=== PATIENT | female | born 1935 | race African-American/Black ===

== ENCOUNTER → 2016-07-03 | Outpatient (CLI) | payer MEDICARE, MEDICAID, OTHER ==
[~2016-07-03] MED LIST: ALBU6.7H INH; ASPI-110 PO; ATOR40TA16 PO; BACT800T5 PO; BLOOD GLUCOSE T1 TES; CALCTAB54 PO; CEPH-460 PO; CLOP75 PO; FURO1TAB62 PO; GABA300C5 PO; HUMA100I3 SQ; HYDR-3516 PO; HYDRGEL4 TOPICAL; INSULIN NEEDLES; LACT10SO PO; LANTINJ SQ; LANTUS; LISI2.5T3 PO; MAGNSOL2 PO; METO25TA3 PO; MIRA33504 PO; NAPR500 PO; POTA-163 PO; SPIRCAP INH; TRIA40P I-ARTICULR; TRIA40P IA; VITA400T2 PO; WHEEMIS3; ZOCO80TA PO; [UNRECOGNIZED DRUG - CODE] INJ; lancets; needles
[2016-07-03 08:38] LABS: ANION GAP 6 MEQ/L (5-15); BICARBONATE 25.9 MEQ/L (21.0-32.0); BLOOD UREA NITROGEN 27 MG/DL (7-18); CHLORIDE 113 MEQ/L (98-107); GLOMERULAR FILTRATION RATE 49 ML/MIN (>89); GLUCOSE,FASTING 123 MG/DL (74-99); POTASSIUM 4.6 MEQ/L (3.5-5.1); SODIUM (NA) 145 MEQ/L (136-145)
[2016-07-03 11:06] LABS: MICRO ALBUMIN RANDOM URINE RAW 8.6 MG/L (0.0-30.0)
[2016-07-03 11:51] LABS: HEMOGLOBIN A1a 0.9 %; HEMOGLOBIN LA1C 2.3 %; HEMOGLOBIN P3 4.5 %
== END ==
LOC: CLAB 07:38
PROVIDERS: ATTEND Family Medicine
DX: E11.9 Type 2 diabetes mellitus without complications (principal)
CPT/HCPCS: 36415; 80048; 82043; 83036

== ENCOUNTER 2016-07-16 08:26 | Emergency (ER) | payer MEDICARE, MEDICAID ==
[~2016-07-16] VITALS: Ht 160 cm; Wt 93.0 kg
[~2016-07-16 08:26] MED LIST changes: -BACT800T5 PO; -BLOOD GLUCOSE T1 TES; -CEPH-460 PO; -HYDRGEL4 TOPICAL; -TRIA40P I-ARTICULR; -WHEEMIS3; -[UNRECOGNIZED DRUG - CODE] INJ; -lancets; -needles
[2016-07-16 08:29] VITALS: BP 150/80; PULSE 86; RESP 20; TEMP 98.1; O2SAT 97
[2016-07-16 08:42] VITALS: BP 172/82; PULSE 72; RESP 17; TEMP 98; O2SAT 98
[2016-07-16] MEDS ORDERED: BACT800T5 PO (09:10)
[2016-07-16] MEDS ORDERED: CEPH-460 PO (09:10)
--- NOTE | 2016-07-16 09:10 | PD ---
HPI Chief Complaint: Burn Time Seen by Provider: 08:47 Travel History International Travel<30 days: No Contact w/Intl Traveler<30days: No Traveled to known affect area: No History of Present Illness HPI Send 80 year-old woman who presents to the emergency department complaining of pain from a burn under her right foot that happened 5 days ago. Patient is a history of poorly controlled diabetes. She has a small burn to the top of her foot that she sustained after dropping hot grease on it. The wound wasn't really improving and she had worsening pain, some swelling and redness in her foot. She sees a formulation scientist. She is otherwise been feeling well. Skin she may have had some chills at home but no definite fevers. No other complaints. History Past Medical History Narrative Medical Diabetes CAD, hypertension COPD Arthritis Anxiety Heart of hearing Tetanus Vaccination: < 5 Years Influenza Vaccination: Yes PNEUMOCCOCAL Vaccine (Year): 1 Menopausal: Yes : 11 Para: 8 Social History Alcohol Use: No Tobacco Use: No Allergies-Medications (Allergen,Severity, Reaction): Coded Allergies: Cola Drinks (Verified Allergy, Intermediate, FACIAL SWELLING, 07/16/16) Tomato (Verified Allergy, Intermediate, FACIAL SWELLING, 07/16/16) Morphine (Verified Allergy, Mild, Itching, 07/16/16) Reported Meds & Prescriptions Reported Meds & Active Scripts Active Metoprolol Tartrate 25 Mg Tab 25 Mg PO BID Potassium Chloride ER (Potassium Chloride) 20 Meq Tab 20 Meq PO DAILY Naprosyn (Naproxen) 500 Mg Tab 500 Mg PO BID Spiriva Handihaler (Tiotropium Inh) 18 Mcg Cap 18 Mcg INH DAILY 1 capsule = 18 mcg Lisinopril 2.5 Mg Tab 2.5 Mg PO DAILY Humalog Kwikpen Pen Inj (Insulin Lispro (Human) Inj) 300 Unit/3 Ml Pen 15 Units SQ BID Hydrocodone-Acetaminophen 5-325 mg Tab 1 Tab PO Q6H PRN Magnesium Citrate Liq (Magnesium Citrate) 300 Ml Liq 300 Ml PO DIRECTED Miralax Powder (Polyethylene Glycol 3350 Powder) 17 Gm Powd 17 Gm PO DAILY Mix and dissolve one measuring cap-ful (17 grams) in water or juice. Lactulose Liq (Lactulose) 10 Gm/15 Ml Soln 30 Ml PO Q8HR PRN 5 Days Lantus Solostar Pen Inj (Insulin Glargine) 300 Unit/3 Ml Pen 40 Units SQ HS Calcium 500 (Kvarqje-Uaqdplzeg-Hntszxx D) 500-250-200 Mg-Mg-Unit Tab 1 Tab PO DAILY Atorvastatin (Atorvastatin Calcium) 40 Mg Tab 40 Mg PO HS Aspirin 81 (Aspirin) 81 Mg Tabdr 81 Mg PO DAILY Proventil Hfa 6.7 GM Inh (Albuterol Sulfate) 90 Mcg/Act Aer 2 Puff INH Q4-6H PRN Vitamin D (Cholecalciferol) 400 Unit Tab 1 Tab PO DAILY Gabapentin 300 Mg Cap 300 Mg PO BID Lasix (Furosemide) 20 Mg Tab 20 Mg PO DAILY Review of Systems Except as stated in HPI: all other systems reviewed are Neg Physical Exam Narrative GENERAL: Well-appearing 80 year-old woman, no acute distress. SKIN: Warm and dry. CARDIOVASCULAR: Warm and well perfused. RESPIRATORY: Normal rate and effort. MUSCULOSKELETAL: Focused assessment of the right foot reveals a little bit of edema compared to the left. The foot is generally well tended to. There is approximately 1-1/2 cm area burn on the top of the foot. Patient appears to have sensation in the area of burn. There is a small surrounding rim of darker erythema, approximately 5-10 mm or so. Entire foot is a little bit tender. Good perfusion. NEUROLOGICAL: Awake and alert. No gross deficits. Data Data Last Documented VS Vital Signs Date Time Temp Pulse Resp B/P Pulse Ox O2 Delivery O2 Flow Rate FiO2 07/16/16 08:52 17 98 Room Air 07/16/16 08:42 98.0 72 172/82 MDM Medical Decision Making Medical Screen Exam Complete: Yes Emergency Medical Condition: Yes Differential Diagnosis Burn, cellulitis, infection, other Narrative Course Medical decision making Is an 80 year-old woman, history diabetes, high risk for infection, with a burn to the top of her foot. She has sensation to the area of burn, likely partial thickness. It is small. She looks otherwise well. No evidence of systemic infection here. Area of surrounding cellulitis is small. Recommend oral antibiotics, elevation of the foot, and close follow-up with her primary and with wound care. I spoke with the family member with her, if she has any spreading of erythema outside the demarcated area, if she has any fevers, or if she is feeling worse, she'll return to the emergency department for IV antibiotics. Diagnosis Primary Impression: Burn of right foot Qualified Code: T25.221A - Burn of right foot, second degree, initial encounter Additional Impression: Cellulitis Qualified Code: L03.115 - Cellulitis of right lower extremity Patient Instructions: General Instructions Additional Instructions: Take antibiotics as prescribed. Keep your leg elevated above your heart to reduce swelling. Follow-up with the wound care center at the first available appointment in the next 2-3 days. Follow-up with her primary physician in the next 2-3 days. Return to the emergency department if you have any spreading of the redness outside the demarcated area, any fevers or chills, or any other new or worsening symptoms. Med/Other Pt SpecificInfo: Prescription(s) given Scripts Cephalexin (Keflex)500 Mg [id number] Mg PO Q8H #30 CAP Ref 0 Prov:Lobito Wong MD 07/16/16 Sulfamethoxazole-Trimethoprim (Bactrim DS)800-160 Mg Tab1 Tab PO BID #20 TAB Ref 0 Prov:Lobito Wong MD 07/16/16 Disposition: 01 DISCHARGE HOME Condition: Stable Lobito Wong MD Jul 16, 2016 09:10
[2016-07-16] MEDS ORDERED: SULFAMETHOXAZOLE-TRIMETHOPRIM DS 800-160 MG TAB PO ONE (09:15)
[2016-07-16] MEDS ORDERED: CEPHALEXIN MONOHYDRATE 500 MG CAP PO ONE (09:15)
[2016-07-16 09:26] VITALS: BP 170/82; TEMP 98.1
[2016-07-22] MEDS ORDERED: HYDRGEL4 TOPICAL (10:54)
[2016-07-29] MEDS ORDERED: POTA-163 PO (10:08)
[2016-07-29] MEDS ORDERED: FURO1TAB62 PO (10:08)
[2016-07-29] MEDS ORDERED: ASPI-110 PO (10:08)
[2016-07-29] MEDS ORDERED: LISI2.5T3 PO (10:08)
[2016-07-29] MEDS ORDERED: NAPR500 PO (10:08)
[2016-07-29] MEDS ORDERED: LANTINJ SQ (10:08)
[2016-07-29] MEDS ORDERED: CALCTAB54 PO (10:08)
[2016-07-29] MEDS ORDERED: ATOR40TA16 PO (10:08)
[2016-07-29] MEDS ORDERED: GABA300C5 PO (10:08)
[2016-07-29] MEDS ORDERED: VITA400T2 PO (10:08)
[2016-07-29] MEDS ORDERED: SPIRCAP INH (10:08)
[2016-07-29] MEDS ORDERED: ALBU6.7H INH (10:08)
[2016-07-29] MEDS ORDERED: HUMA100I3 SQ (10:08)
[2016-07-31] MEDS ORDERED: [UNRECOGNIZED DRUG - CODE] INJ (12:11)
[2016-08-08] MEDS ORDERED: HYDR-3516 PO (12:52)
[2016-08-14] MEDS ORDERED: [UNRECOGNIZED DRUG - CODE] INJ (12:11)
[2016-10-13] MEDS ORDERED: needles ×2 (10:55)
[2016-10-13] MEDS ORDERED: LANTINJ SQ (10:55)
[2016-10-13] MEDS ORDERED: HUMA100I3 SQ (10:55)
[2016-10-13] MEDS ORDERED: lancets (10:56)
[2016-10-13] MEDS ORDERED: BLOOD GLUCOSE T1 TES (10:56)
[2016-10-13] MEDS ORDERED: TRIA40P I-ARTICULR (10:58)
[2016-10-13] MEDS ORDERED: HYDR-3516 PO ×2 (10:59→11:00)
[2016-10-17] MEDS ORDERED: WHEEMIS3 (10:19)
== END 2016-07-16 09:26 | disposition home or self-care (01) ==
LOC: NEPC 08:26
DX: T25.221A Burn of second degree of right foot, initial encounter (principal); X19.XXXA Contact with other heat and hot substances, initial encounter
CPT/HCPCS: 99283

== ENCOUNTER → 2016-08-29 | Outpatient (CLI) | payer MEDICARE, OTHER ==
[~2016-08-29] MED LIST changes: +BLOOD GLUCOSE T1 TES; +HYDRGEL4 TOPICAL; -INSULIN NEEDLES; -LANTUS; +TRIA40P I-ARTICULR; +WHEEMIS3; +lancets; +needles
--- NOTE | 2016-09-01 19:11 | RADRPT ---
EXAM DATE/TIME: 08/29/2016 00:00 [facility] COMPARISON: No previous studies available for comparison. INDICATIONS : Right lung mass. FINDINGS: There is a PET scan from 04/16/16 that shows a slow-growing nodule in the right lower l obe measuring 1.7 cm that is not PET avid. The slow growth is concerning. This nodule would be very difficult to biopsy percutaneously, hidden behind scapula and rib and small in size; 1.7 cm size. This nodule may be amenable to bronchoscopic image-guided biopsy. A third option would be to perform a follow-up CT scan in August which would give us a five month foll ow-up. If this continues to enlarge an aggressive approach would be of benefit. If this remains sta ble one could also entertain close observation. The PET positive adrenal nodule would be amenable to percutaneous biopsy if this is of significant cl inical concern. Thank you for this consultation. Dany Fairbanks MD FACR on September 01, 2016 at 18:56 Board Certified Radiologist. This report was verified electronically.
== END ==
LOC: HRAD 17:27
PROVIDERS: ATTEND Family Medicine
DX: R23.4 Changes in skin texture (principal); R91.8 Other nonspecific abnormal finding of lung field

== ENCOUNTER → 2016-12-16 | Outpatient (CLI) | payer MEDICARE, OTHER ==
[~2016-12-16] MED LIST changes: -TRIA40P I-ARTICULR
[2016-12-16 08:52] LABS: ANION GAP 8 MEQ/L (5-15); BICARBONATE 22.9 MEQ/L (21.0-32.0); BLOOD UREA NITROGEN 38 MG/DL (7-18); CHLORIDE 108 MEQ/L (98-107); GLOMERULAR FILTRATION RATE 46 ML/MIN (>89); GLUCOSE,FASTING 180 MG/DL (74-99); POTASSIUM 4.4 MEQ/L (3.5-5.1); SODIUM (NA) 139 MEQ/L (136-145)
[2016-12-16 16:36] LABS: HEMOGLOBIN A1a 1.1 %; HEMOGLOBIN A1b 2.2 %; HEMOGLOBIN Ao 81.1 %; HEMOGLOBIN LA1C 2.6 %; HEMOGLOBIN P3 4.6 %
== END ==
LOC: CLAB 07:49
PROVIDERS: ATTEND Family Medicine
DX: E11.9 Type 2 diabetes mellitus without complications (principal)
CPT/HCPCS: 36415; 80048; 83036

== ENCOUNTER → 2017-03-13 | Outpatient (CLI) | payer MEDICARE, OTHER ==
[~2017-03-13] MED LIST changes: +CHOL100025 CHEW; +CLOP75TA PO; +METF1000 PO; -NAPR500 PO; -VITA400T2 PO
[2017-03-13 08:22] LABS: HEMATOCRIT 33.8 % (35.0-46.0); MEAN CELL VOLUME 89.6 FL (80.0-100.0); MEAN CORPUSCULAR HEMOGLOBIN 29.8 PG (27.0-34.0); MEAN CORPUSCULAR HGB CONC 33.2 % (32.0-36.0); PLATELET COUNT 253 TH/MM3 (150-450); RED BLOOD COUNT 3.77 MIL/MM3 (4.00-5.30); RED CELL DISTRIBUTION WIDTH 13.9 % (11.6-17.2); REVIEW FLAG FINAL; WHITE BLOOD COUNT 6.7 TH/MM3 (4.0-11.0)
[2017-03-13 08:38] LABS: ANION GAP 7 MEQ/L (5-15); BICARBONATE 27.3 MEQ/L (21.0-32.0); BLOOD UREA NITROGEN 21 MG/DL (7-18); CHLORIDE 109 MEQ/L (98-107); GLOMERULAR FILTRATION RATE 53 ML/MIN (>89); GLUCOSE,FASTING 83 MG/DL (74-99); POTASSIUM 4.4 MEQ/L (3.5-5.1); SODIUM (NA) 143 MEQ/L (136-145)
[2017-03-13 15:01] LABS: HEMOGLOBIN A1a 1.1 %; HEMOGLOBIN A1b 2.1 %; HEMOGLOBIN Ao 83.7 %; HEMOGLOBIN LA1C 1.8 %; HEMOGLOBIN P3 3.9 %
== END ==
LOC: CLAB 07:17
PROVIDERS: ATTEND Family Medicine
DX: R94.4 Abnormal results of kidney function studies (principal); I10 Essential (primary) hypertension; E78.5 Hyperlipidemia, unspecified; E11.9 Type 2 diabetes mellitus without complications; I25.10 Atherosclerotic heart disease of native coronary artery without angina pectoris; E04.1 Nontoxic single thyroid nodule; M81.0 Age-related osteoporosis without current pathological fracture; Z68.38 Body mass index [BMI] 38.0-38.9, adult
CPT/HCPCS: 36415; 80048; 82306; 83036; 84443; 85027

== ENCOUNTER 2017-04-26 16:15 | Emergency (ER) | payer MEDICARE, OTHER ==
[~2017-04-26] VITALS: Ht 167.6 cm; Wt 76.0 kg
[~2017-04-26 16:15] MED LIST changes: -ASPI-110 PO; +ASPI1TAB57 PO
[2017-04-26 16:17] VITALS: BP 200/84; PULSE 91; RESP 18; TEMP 99.1; O2SAT 98
--- NOTE | 2017-04-26 17:05 | RADRPT ---
EXAM DATE/TIME: 04/26/2017 16:50 [facility] COMPARISON: CHEST SINGLE AP, October 07, 2015, 1:13. INDICATIONS : Congestion. Cough. Fever. MEDICAL HISTORY : None. SURGICAL HISTORY : None. ENCOUNTER: Initial ACUITY: 3 days PAIN SCORE: 6/10 LOCATION: Bilateral chest FINDINGS: Mild bibasilar consolidation noted. No pleural effusion. No pneumothorax. Heart size stable, within normal limits. CONCLUSION: Mild bibasilar airspace opacities. Robby Holguin MD on April 26, 2017 at 17:02 Board Certified Radiologist. This report was verified electronically.
[2017-04-26 17:19] VITALS: BP 156/80; PULSE 84; RESP 18; O2SAT 96
[2017-04-26 17:30] LABS: AUTOMATED NEUTROPHIL # 7.2 TH/MM3 (1.8-7.7); BASOPHIL % 0.3 % (0.0-2.0); EOSINOPHIL # 0.1 TH/MM3 (0-0.4); EOSINOPHIL % 0.8 % (0.0-4.0); HEMATOCRIT 33.3 % (35.0-46.0); HEMO FLAGS DIFF FINAL; LYMPH % 19.7 % (9.0-44.0); MEAN CELL VOLUME 88.9 FL (80.0-100.0); MEAN CORPUSCULAR HEMOGLOBIN 29.7 PG (27.0-34.0); MEAN CORPUSCULAR HGB CONC 33.4 % (32.0-36.0); MONO % 7.8 % (0.0-8.0); NEUT % 71.4 % (16.0-70.0); PLATELET COUNT 245 TH/MM3 (150-450); RED BLOOD COUNT 3.75 MIL/MM3 (4.00-5.30); RED CELL DISTRIBUTION WIDTH 14.2 % (11.6-17.2); WHITE BLOOD COUNT 10.1 TH/MM3 (4.0-11.0)
[2017-04-26] MEDS ORDERED: ACETAMINOPHEN 500 MG CPLT PO ONE (17:30)
[2017-04-26 17:48] LABS: ANION GAP 8 MEQ/L (5-15); BICARBONATE 26.4 MEQ/L (21.0-32.0); BLOOD UREA NITROGEN 16 MG/DL (7-18); CHLORIDE 103 MEQ/L (98-107); GLOMERULAR FILTRATION RATE 50 ML/MIN (>89); POTASSIUM 4.3 MEQ/L (3.5-5.1); SODIUM (NA) 137 MEQ/L (136-145)
[2017-04-26 17:52] LABS: CREATINE KINASE 152 U/L (26-192)
[2017-04-26 18:05] LABS: CKMB 2.5 NG/ML (0.5-3.6)
--- NOTE | 2017-04-26 18:22 | PD ---
HPI Chief Complaint: Headache Time Seen by Provider: 17:17 Travel History International Travel<30 days: No Contact w/Intl Traveler<30days: No Traveled to known affect area: No History of Present Illness HPI This is an 81-year-old female who presents to the emergency department with headache that's been going on since yesterday evening, constant, moderate severity, described as pain all over the front of her forehead extending down into her neck and her throat. She also says she has nasal congestion, has yellow stuff coming from her nose and has a sore throat. She's had headaches in the past. She says the headache started last evening but was worse this morning. She denies any fevers or chills. PFSH Past Medical History Hx Anticoagulant Therapy: Yes Arthritis: Yes (KNEE, BACK) Asthma: Yes Autoimmune Disease: No Blood Disorders: No Anxiety: Yes Depression: No Heart Rhythm Problems: No Cancer: No Cardiac Catheterization: Yes Cardiovascular Problems: Yes (stents x2) High Cholesterol: No Chemotherapy: No Chest Pain: Yes Congestive Heart Failure: No COPD: Yes Cerebrovascular Accident: No Coronary Artery Disease: Yes Diabetes: Yes Patient Takes Glucophage: Yes Diminished Hearing: Yes ([place]) Endocrine: Yes Gastrointestinal Disorders: Yes (APPENDECTOMY) GERD: No Glaucoma: No Genitourinary: No Headaches: No Hepatitis: No Hiatal Hernia: No Heparin Induced Thrombocytopen: No Hypertension: Yes Immune Disorder: No Implanted Vascular Access Dvce: No Kidney Stones: No Musculoskeletal: No Neurologic: No Psychiatric: No Reproductive: No Respiratory: Yes (asthma) Immunizations Current: Yes Migraines: Yes Myocardial Infarction: Yes Radiation Therapy: No Renal Failure: No Seizures: No Sickle Cell Disease: No Sleep Apnea: No Thyroid Disease: No Ulcer: No Tetanus Vaccination: < 5 Years Influenza Vaccination: Yes PNEUMOCCOCAL Vaccine (Year): 1 Menopausal: Yes : 11 Para: 8 Tubal Ligation: Yes Past Surgical History Abdominal Surgery: Yes AICD: No Appendectomy: Yes Body Medical Devices: CARDIAC STENT Cardiac Surgery: Yes Cholecystectomy: Yes Coronary Artery Bypass Graft: Yes Coronary Stent: Yes Ear Surgery: No Endocrine Surgery: No Eye Surgery: No Genitourinary Surgery: No Gynecologic Surgery: Yes Hysterectomy: Yes Neurologic Surgery: No Oral Surgery: No Pacemaker: No Thoracic Surgery: No Other Surgery: Yes (CYST OFF LEFT ARM ) Social History Alcohol Use: No Tobacco Use: No Substance Use: No Allergies-Medications (Allergen,Severity, Reaction): Coded Allergies: tomato (Unverified Allergy, Intermediate, FACIAL SWELLING, 04/26/17) morphine (Unverified Allergy, Mild, Itching, 04/26/17) Reported Meds & Prescriptions Reported Meds & Active Scripts Active Spiriva Handihaler (Tiotropium Inh) 18 Mcg Cap 18 Mcg INH DAILY 1 capsule = 18 mcg Metformin (Metformin HCl) 1,000 Mg Tab 1,000 Mg PO BIDPC With meals Atorvastatin (Atorvastatin Calcium) 40 Mg Tab 40 Mg PO HS Vitamin D3 (Cholecalciferol) 1,000 Unit Chew 1,000 Units CHEW DAILY Clopidogrel (Clopidogrel Bisulfate) 75 Mg Tab 75 Mg PO DAILY Lantus Solostar Pen Inj (Insulin Glargine) 300 Unit/3 Ml Pen 40 Units SQ HS Wheelchair (Device) 1 Mis Mis 1 Ea .ROUTE DIRECTED [lancets] Unit BID Blood Glucose Test Strips 1 Amanda Amanda 1 Ea .ROUTE BID [needles] Unit BID Humalog Kwikpen Pen Inj (Insulin Lispro (Human) Inj) 300 Unit/3 Ml Pen 15 Units SQ BID Potassium Chloride ER (Potassium Chloride) 20 Meq Tab 20 Meq PO DAILY Lisinopril 2.5 Mg Tab 2.5 Mg PO DAILY Aspirin 81 (Aspirin) 81 Mg Tabdr 81 Mg PO DAILY Proventil Hfa 6.7 GM Inh (Albuterol Sulfate) 90 Mcg/Act Aer 2 Puff INH Q4-6H PRN Gabapentin 300 Mg Cap 300 Mg PO BID Lasix (Furosemide) 20 Mg Tab 20 Mg PO DAILY Metoprolol Tartrate 25 Mg Tab 25 Mg PO BID Magnesium Citrate Liq (Magnesium Citrate) 300 Ml Liq 300 Ml PO DIRECTED Review of Systems Except as stated in HPI: all other systems reviewed are Neg Physical Exam Narrative GENERAL:Well appearing, no acute distress SKIN: Focused skin assessment warm and dry. HEAD: Atraumatic. Normocephalic. EYES: Pupils equal and round. No injection or drainage. ENT: Moist mucous membranes NECK: Trachea midline. CARDIOVASCULAR: Regular rate and rhythm. No murmur appreciated. RESPIRATORY: Clear to auscultation. Breath sounds equal bilaterally. GASTROINTESTINAL: Abdomen soft, non-tender, nondistended. MUSCULOSKELETAL: No obvious deformities. NEUROLOGICAL: Awake and alert. No obvious cranial nerve deficits. No dysarthria or aphasia. No upper or lower extremity drift. No upper extremity ataxia. Intention tremor. PSYCHIATRIC: Appropriate mood and affect; insight and judgment normal. Data Data Last Documented VS Vital Signs Date Time Temp Pulse Resp B/P (MAP) Pulse Ox O2 Delivery O2 Flow Rate FiO2 04/26/17 17:19 86 20 96 Room Air 04/26/17 17:19 156/80 (105) 04/26/17 16:17 99.1 Orders Orders Electrocardiogram (04/26/17 16:28) Complete Blood Count With Diff (04/26/17 16:28) Basic Metabolic Panel (Bmp) (04/26/17 16:28) Ckmb (Isoenzyme) Profile (04/26/17 16:28) Troponin I (04/26/17 16:28) Chest, Single Ap (04/26/17 16:28) Ct Brain W/O Iv Contrast(Rout) (04/26/17 ) Acetaminophen (Tylenol) (04/26/17 17:30) CKMB (04/26/17 16:37) CKMB% (04/26/17 16:37) Labs Laboratory Tests Test 04/26/17 16:37 White Blood Count 10.1 TH/MM3 Red Blood Count 3.75 MIL/MM3 Hemoglobin 11.1 GM/DL Hematocrit 33.3 % Mean Corpuscular Volume 88.9 FL Mean Corpuscular Hemoglobin 29.7 PG Mean Corpuscular Hemoglobin Concent 33.4 % Red Cell Distribution Width 14.2 % Platelet Count 245 TH/MM3 Mean Platelet Volume 8.9 FL Neutrophils (%) (Auto) 71.4 % Lymphocytes (%) (Auto) 19.7 % Monocytes (%) (Auto) 7.8 % Eosinophils (%) (Auto) 0.8 % Basophils (%) (Auto) 0.3 % Neutrophils # (Auto) 7.2 TH/MM3 Lymphocytes # (Auto) 2.0 TH/MM3 Monocytes # (Auto) 0.8 TH/MM3 Eosinophils # (Auto) 0.1 TH/MM3 Basophils # (Auto) 0.0 TH/MM3 CBC Comment DIFF FINAL Differential Comment Blood Urea Nitrogen 16 MG/DL Creatinine 1.24 MG/DL Random Glucose 170 MG/DL Calcium Level 8.8 MG/DL Sodium Level 137 MEQ/L Potassium Level 4.3 MEQ/L Chloride Level 103 MEQ/L Carbon Dioxide Level 26.4 MEQ/L Anion Gap 8 MEQ/L Estimat Glomerular Filtration Rate 50 ML/MIN Total Creatine Kinase 152 U/L Creatine Kinase MB 2.5 NG/ML Troponin I LESS THAN 0.02 NG/ML MDM Medical Decision Making Medical Screen Exam Complete: Yes Emergency Medical Condition: Yes Interpretation(s) Afebrile, mild tachycardia, hypertension improved in the ER No leukocytosis Mild anemia Mild renal insufficiency Troponin is normal Chest x-ray: Mild bibasilar airspace opacities, patient is asymptomatic so I doubt this reflects pneumonia Last 24 hours Impressions Chest X-Ray 04/26/17 1628 Signed Impressions: Service Date/Time: Thursday, April 26, 2017 16:50 - CONCLUSION: Mild bibasilar airspace opacities. Robby Holguin MD CT head: No intracranial hemorrhage Differential Diagnosis Migraine, tension headache, sinusitis, subarachnoid hemorrhage, viral syndrome, influenza Narrative Course This is an 81-year-old female who presents to the emergency department with headache, nasal congestion and sore throat. Her headache has worsened over 24 hours and was maximal today is post yesterday when it started which makes it less likely to be subarachnoid hemorrhage. She has a baseline neurologic exam. Given the presence of upper respiratory symptoms I suspect this reflects more of a sinusitis. Patient will be initiated on Augmentin. I think she is safe to be discharged. Diagnosis Primary Impression: Sinus headache Patient Instructions: General Instructions Additional Instructions: If you develop severe worsening headache, persistent vomiting, numbness, weakness, difficulty walking or difficulty talking return to the emergency department immediately. Sometimes in the emergency department we did not identify the cause of headaches. If you continued to have headaches it is very important that you followup with your primary care physician as you may need further testing with an MRI. Med/Other Pt SpecificInfo: Prescription(s) given Scripts Amoxicillin-Clavulanate (Augmentin) 875-125 Mg Tab 1 TAB PO BID for Infection for 10 Days, #20 TAB 0 Refills Prov: Sumaya Day MD 04/26/17 Disposition: 01 DISCHARGE HOME Condition: Stable Sumaya Day MD Apr 26, 2017 18:22
--- NOTE | 2017-04-26 18:29 | RADRPT ---
EXAM DATE/TIME: 04/26/2017 18:16 [facility] COMPARISON: CT BRAIN W/O CONTRAST, March 13, 2016, 7:57. INDICATIONS : Headaches. RADIATION DOSE: 51.57 CTDIvol (mGy) MEDICAL HISTORY : Cardiovascular disease. Hypertension. SURGICAL HISTORY : CABG Appendectomy.Hysterectomy.GB ENCOUNTER: Initial ACUITY: 1 day PAIN SCALE: 8/10 LOCATION: Bilateral cranial TECHNIQUE: Multiple contiguous axial images were obtained of the head. Using automated exposure control and adj ustment of the mA and/or kV according to patient size, radiation dose was kept as low as reasonably a chievable to obtain optimal diagnostic quality images. DICOM format image data is available electro nically for review and comparison. FINDINGS: CEREBRUM: Mild cerebral atrophy. The ventricles are normal for degree of atrophy. No evidence of midline shift , mass lesion, hemorrhage or acute infarction. No extra-axial fluid collections are seen. POSTERIOR FOSSA: The cerebellum and brainstem are intact. The 4th ventricle is midline. The cerebellopontine angle i s unremarkable. EXTRACRANIAL: The visualized portion of the orbits is intact. SKULL: The calvaria is intact. No evidence of skull fracture. CONCLUSION: 1. No acute intracranial normality. Martín Mack MD on April 26, 2017 at 18:26 Board Certified Radiologist. This report was verified electronically.
[2017-04-26] MEDS ORDERED: AUGM875T3 PO (18:36)
[2017-04-27] MEDS ORDERED: ROBA500T PO (18:30)
[2017-04-27] MEDS ORDERED: NORC5TAB PO (18:30)
--- NOTE | 2017-04-27 19:31 | EKG ---
Date Performed: 04/26/2017 Time Performed: 16:36:53 PTAGE: 81 years EKG: Sinus rhythm POSSIBLE RIGHT VENTRICULAR CONDUCTION DELAY POSSIBLE LEFT VENTRICULAR HYPERTROPHY POSSIBLE ANTEROSEP RYLAN MYOCARDIAL INFARCTION Since previous tracing, no significant change noted ABNORMAL ECG PREVIOUS TRACING : 10/07/2015 00.37 DOCTOR: Eva Malik Interpretating Date/Time 04/27/2017 19:30:00
== END 2017-04-26 19:30 | disposition home or self-care (01) ==
LOC: NEPC 16:15
DX: R51 Headache (principal); R09.81 Nasal congestion; J02.9 Acute pharyngitis, unspecified; R00.0 Tachycardia, unspecified; D64.9 Anemia, unspecified; N28.9 Disorder of kidney and ureter, unspecified; E11.9 Type 2 diabetes mellitus without complications; I10 Essential (primary) hypertension; R94.31 Abnormal electrocardiogram [ECG] [EKG]
CPT/HCPCS: 70450; 71010; 80048; 82550; 82552; 84484; 85025; 93005

== ENCOUNTER 2017-04-27 15:17 | Emergency (ER) | payer MEDICAID, MEDICARE ==
[~2017-04-27 15:17] MED LIST changes: +AUGM875T3 PO; -CALCTAB54 PO; -HYDR-3516 PO; -HYDRGEL4 TOPICAL; -LACT10SO PO; -MIRA33504 PO
[2017-04-27 15:19] VITALS: BP 172/97; PULSE 89; RESP 18; TEMP 98.6; O2SAT 98
--- NOTE | 2017-04-27 16:02 | RADRPT ---
EXAM DATE/TIME: 04/27/2017 15:44 [facility] COMPARISON: SHOULDER RIGHT COMPLETE (>2VWS), October 07, 2015, 2:00. INDICATIONS : Right shoulder pain after fall. MEDICAL HISTORY : None. SURGICAL HISTORY : None. ENCOUNTER: Initial ACUITY: 2 days PAIN SCORE: 10/10 LOCATION: Right shoulder. FINDINGS: Redemonstration of degenerative changes about the glenohumeral joint and hypertrophic changes of the a.c. joint. Osseous structures appear intact without evidence for acute bony fracture or focal bony d estruction. There is anatomic alignment. Visualized portions of the right lung are clear. CONCLUSION: 1. Stable degenerative changes without acute fracture or dislocation. Martín Mack MD on April 27, 2017 at 15:58 Board Certified Radiologist. This report was verified electronically.
--- NOTE | 2017-04-27 16:04 | PD ---
HPI Chief Complaint: Pain: Acute or Chronic Time Seen by Provider: 15:43 Travel History International Travel<30 days: No Contact w/Intl Traveler<30days: No Traveled to known affect area: No History of Present Illness HPI 81-year-old female presents to the emergency Department with complaint of right lateral neck pain and shoulder pain that started last night. She states she slipped and fell in her bathtub 2 days ago injuring her right shoulder. She denies hitting her head or loss of consciousness. She was seen yesterday here in the emergency department and had a CT of her head, but did not mention that she had fallen, and also she states she did not have right shoulder pain yesterday so didn't mention it. Denies headache, lightheadedness, dizziness. Denies focal deficits or weakness. Denies fever, nausea, vomiting. Reports the pain is shooting from her neck down to her shoulder. She has taken aspirin for symptom management. Rates pain 10/10. Pain is aggravated with movement and palpation. Describes it as a shooting sensation. Has no other medical complaints. No other modifying factors or associated signs and symptoms. PFSH Past Medical History Hx Anticoagulant Therapy: Yes (PLAVIX/ASA) Arthritis: Yes (KNEE, BACK) Asthma: Yes Autoimmune Disease: No Blood Disorders: No Anxiety: Yes Depression: No Heart Rhythm Problems: No Cancer: No Cardiac Catheterization: Yes Cardiovascular Problems: Yes (CAD WITH STENTS X2) High Cholesterol: No Chemotherapy: No Chest Pain: Yes Congestive Heart Failure: No COPD: Yes Cerebrovascular Accident: No Coronary Artery Disease: Yes Diabetes: Yes Diminished Hearing: Yes ([place]) Endocrine: Yes Gastrointestinal Disorders: Yes (APPENDECTOMY) GERD: No Glaucoma: No Genitourinary: No Headaches: No Hepatitis: No Hiatal Hernia: No Heparin Induced Thrombocytopen: No Hypertension: Yes Immune Disorder: No Implanted Vascular Access Dvce: No Kidney Stones: No Musculoskeletal: No Neurologic: No Psychiatric: No Reproductive: No Respiratory: Yes (asthma) Immunizations Current: Yes Migraines: Yes Myocardial Infarction: Yes Radiation Therapy: No Renal Failure: No Seizures: No Sickle Cell Disease: No Sleep Apnea: No Thyroid Disease: No Ulcer: No PNEUMOCCOCAL Vaccine (Year): 1 Menopausal: Yes : 11 Para: 8 Tubal Ligation: Yes Past Surgical History Abdominal Surgery: Yes AICD: No Appendectomy: Yes Body Medical Devices: CARDIAC STENT Cardiac Surgery: Yes Cholecystectomy: Yes Coronary Artery Bypass Graft: Yes Coronary Stent: Yes Ear Surgery: No Endocrine Surgery: No Eye Surgery: No Genitourinary Surgery: No Gynecologic Surgery: Yes Hysterectomy: Yes Neurologic Surgery: No Oral Surgery: No Pacemaker: No Thoracic Surgery: No Other Surgery: Yes (CYST OFF LEFT ARM ) Social History Alcohol Use: No Tobacco Use: No Substance Use: No Allergies-Medications (Allergen,Severity, Reaction): Coded Allergies: tomato (Unverified Allergy, Intermediate, FACIAL SWELLING, 04/26/17) morphine (Unverified Allergy, Mild, Itching, 04/26/17) Reported Meds & Prescriptions Reported Meds & Active Scripts Active [place] (Hydrocodone-Acetaminophen) 5 Mg-325 Mg Tab 1 Tab PO Q6H PRN Robaxin (Methocarbamol) 500 Mg Tab 500 Mg PO QID PRN Augmentin (Amoxicillin-Clavulanate) 875-125 Mg Tab 1 Tab PO BID 10 Days Spiriva Handihaler (Tiotropium Inh) 18 Mcg Cap 18 Mcg INH DAILY 1 capsule = 18 mcg Metformin (Metformin HCl) 1,000 Mg Tab 1,000 Mg PO BIDPC With meals Atorvastatin (Atorvastatin Calcium) 40 Mg Tab 40 Mg PO HS Vitamin D3 (Cholecalciferol) 1,000 Unit Chew 1,000 Units CHEW DAILY Clopidogrel (Clopidogrel Bisulfate) 75 Mg Tab 75 Mg PO DAILY Lantus Solostar Pen Inj (Insulin Glargine) 300 Unit/3 Ml Pen 40 Units SQ HS Wheelchair (Device) 1 Mis Mis 1 Ea .ROUTE DIRECTED [lancets] Unit BID Blood Glucose Test Strips 1 Amanda Amanda 1 Ea .ROUTE BID [needles] Unit BID Humalog Kwikpen Pen Inj (Insulin Lispro (Human) Inj) 300 Unit/3 Ml Pen 15 Units SQ BID Potassium Chloride ER (Potassium Chloride) 20 Meq Tab 20 Meq PO DAILY Lisinopril 2.5 Mg Tab 2.5 Mg PO DAILY Aspirin 81 (Aspirin) 81 Mg Tabdr 81 Mg PO DAILY Proventil Hfa 6.7 GM Inh (Albuterol Sulfate) 90 Mcg/Act Aer 2 Puff INH Q4-6H PRN Gabapentin 300 Mg Cap 300 Mg PO BID Lasix (Furosemide) 20 Mg Tab 20 Mg PO DAILY Metoprolol Tartrate 25 Mg Tab 25 Mg PO BID Magnesium Citrate Liq (Magnesium Citrate) 300 Ml Liq 300 Ml PO DIRECTED Review of Systems Except as stated in HPI: all other systems reviewed are Neg Physical Exam Narrative GENERAL: Well-nourished, well-developed elderly, black female patient, in no acute distress SKIN: Warm and dry. HEAD: Atraumatic. Normocephalic. EYES: Pupils equal and round. No scleral icterus. No injection or drainage. ENT: Mucosa pink and moist. Airway patent. NECK: Supple. Trachea midline. Moving freely. No midline tenderness on palpation of the cervical spine. Active rotation greater than 45 to the left and right. Reproducible tenderness to the right lateral musculature of the neck. CARDIOVASCULAR: Regular rate and rhythm. No murmur appreciated. RESPIRATORY: No accessory muscle use. Clear to auscultation. Breath sounds equal bilaterally. GASTROINTESTINAL: Abdomen soft, non-tender, nondistended. Positive bowel sounds. No hepato-splenomegaly, or palpable masses. No guarding. MUSCULOSKELETAL: Right shoulder without erythema, edema, ecchymosis; with full range of motion and greater than 90 abduction; shoulders equal and joint stable ; tenderness on palpation to the clavicle area and the right lateral neck; no obvious deformities. Right upper extremity supple and non-tense with 2+ radial pulse and sensory intact without erythema or edema. 5/5 shaper hand strength eye laterally. No obvious deformities. No clubbing. No cyanosis. No edema. NEUROLOGICAL: Awake and alert. Oriented 3. No obvious cranial nerve deficits. Motor grossly within normal limits. Normal speech. PSYCHIATRIC: Appropriate mood and affect; insight and judgment normal. Data Data Last Documented VS Vital Signs Date Time Temp Pulse Resp B/P (MAP) Pulse Ox O2 Delivery O2 Flow Rate FiO2 04/27/17 15:19 98.6 89 18 172/97 (122) 98 Room Air Orders Orders Ct Cerv Spine W/O Contrast (04/27/17 ) Shoulder, Complete (>2vws) (04/27/17 ) Acetaminophen (Tylenol) (04/27/17 16:15) Methocarbamol (Robaxin) (04/27/17 16:15) Acetamin-Hydrocod 325-5 Mg ([place] 5-325 (04/27/17 17:15) Ed Discharge Order (04/27/17 18:52) MDM Medical Decision Making Medical Screen Exam Complete: Yes Emergency Medical Condition: Yes Medical Record Reviewed: Yes Differential Diagnosis Cervical strain, trapezius muscle strain of the neck, muscle spasm, shoulder fracture, shoulder sprain Narrative Course 81-year-old female with right shoulder pain and right lateral neck pain. Says it's related to a mechanical slip and fall 2 days ago while in the bathtub, but woke up with the pain last night. 1604: Shoulder x-ray concludes: Stable degenerative changes without acute fracture or dislocation 1710: Dr. Day evaluated the patient and agrees with my plan of care. The patient is still having continued pain at this time Dr. Day recommended [place]. [place] ordered. 1825: Patient is resting comfortably and she says her pain is better. 1851: CT cervical spine concludes: Last 24 hours Impressions Shoulder X-Ray 04/27/17 0000 Signed Impressions: Service Date/Time: Thursday, April 27, 2017 15:44 - CONCLUSION: 1. Stable degenerative changes without acute fracture or dislocation. Martín Mack MD Cervical Spine CT 04/27/17 0000 Signed Impressions: Service Date/Time: Thursday, April 27, 2017 17:58 - CONCLUSION: 1. No acute fracture or prevertebral soft tissue swelling. 2. Stable multilevel spinal stenoses, foraminal narrowing and cervical spondylosis as described above. Thien Martinze MD [place] and Robaxin prescribed for home. Instructed patient to follow up with primary care provider. Patient verbalizes understanding and agreement with treatment plan. Patient is medically cleared and stable for discharge. Discussed reasons to return to the emergency department. Patient agrees with treatment plan. The patients vital signs are stable and the patient is stable for outpatient follow-up and treatment. Patient discharged home, stable and in no acute distress. Diagnosis Primary Impression: Strain of cervical portion of right trapezius muscle Additional Impression: Right shoulder pain Qualified Codes: M25.511 - Pain in right shoulder Referrals: Orthopedist Primary Care Physician Patient Instructions: Cervical Sprain (ED), General Instructions, Muscle Spasm (ED), Shoulder Sprain (ED) Additional Instructions: Tylenol as directed and as needed for pain Robaxin as prescribed and as needed for muscle spasms Heating pad and/or ice to affected area to reduce pain Avoid aggravating activities; increase activity as tolerated Follow-up with primary care provider Return to emergency department immediately with worsening of symptoms Med/Other Pt SpecificInfo: Prescription(s) given Scripts Hydrocodone-Acetaminophen ([place]) 5 Mg-325 Mg Tab 1 TAB PO Q6H Y for PAIN, #8 TAB 0 Refills Prov: Rose Chaparro 04/27/17 Methocarbamol (Robaxin) 500 Mg Tab 500 MG PO QID Y for MUSCLE SPASM, #30 TAB 0 Refills Prov: Rose Chaparro 04/27/17 Disposition: 01 DISCHARGE HOME Condition: Stable Rose Chaparro Apr 27, 2017 16:04
[2017-04-27] MEDS ORDERED: METHOCARBAMOL 500 MG TAB PO ONE (16:15)
[2017-04-27] MEDS ORDERED: ACETAMINOPHEN 325 MG TAB PO ONE (16:15)
[2017-04-27] MEDS ORDERED: ACETAMINOPHEN/HYDROcodone 325 MG/5 MG TAB PO ONE (17:15)
[2017-04-27] MEDS ORDERED: NORC5TAB PO (18:30)
[2017-04-27] MEDS ORDERED: ROBA500T PO (18:30)
--- NOTE | 2017-04-27 18:45 | RADRPT ---
EXAM DATE/TIME: 04/27/2017 17:58 [facility] COMPARISON: CT CERVICAL SPINE W/O CONTRAST, August 06, 2015, 9:35. INDICATIONS : Right sided neck pain today. RADIATION DOSE: 42.78 CTDIvol (mGy) ; Patient body habitus MEDICAL HISTORY : Cardiovascular disease. Hypertension. Chronic obstructive pulmonary disease.diabetes SURGICAL HISTORY : Hysterectomy. ENCOUNTER: Initial ACUITY: 1 day PAIN SCALE: 10/10 LOCATION: Right neck TECHNIQUE: Volumetric scanning of the cervical spine was performed. Multiplanar reconstructions in the sagittal, coronal and oblique axial planes were performed. Using automated exposure control and adjustment o f the mA and/or kV according to patient size, radiation dose was kept as low as reasonably achievable to obtain optimal diagnostic quality images. DICOM format image data is available electronically f or review and comparison. FINDINGS: There is no acute fracture or prevertebral soft tissue swelling. Diffuse cervical spondylosis is note d and is unchanged compared to the previous examination. Multilevel spinal stenoses are also noted at C2-3, C3-4, C4-5, C5-6 and C6-7 and are unchanged compared to the previous examination. Multilevel s ignificant bilateral foraminal narrowing is also noted at C3-4, C4-5, C5-6 and C6-7 and significant l eft neuroforaminal narrowing is again noted at C2-3. Mild scoliosis of the cervical spine is noted. CONCLUSION: 1. No acute fracture or prevertebral soft tissue swelling. 2. Stable multilevel spinal stenoses, foraminal narrowing and cervical spondylosis as described above . Thien Martinez MD on April 27, 2017 at 18:37 Board Certified Radiologist. This report was verified electronically.
== END 2017-04-27 19:20 | disposition home or self-care (01) ==
LOC: NEPD 15:17
DX: S16.1XXA Strain of muscle, fascia and tendon at neck level, initial encounter (principal); M25.511 Pain in right shoulder; M54.2 Cervicalgia; E11.9 Type 2 diabetes mellitus without complications; I10 Essential (primary) hypertension; J44.9 Chronic obstructive pulmonary disease, unspecified; I25.10 Atherosclerotic heart disease of native coronary artery without angina pectoris; M19.90 Unspecified osteoarthritis, unspecified site; W18.2XXA Fall in (into) shower or empty bathtub, initial encounter
CPT/HCPCS: 72125; 73030; 99285

== ENCOUNTER 2017-06-09 09:34 | Emergency (ER) | payer MEDICARE, MEDICAID ==
[~2017-06-09] VITALS: Ht 160 cm; Wt 95.0 kg
[~2017-06-09 09:34] MED LIST changes: -AUGM875T3 PO; -CHOL100025 CHEW; +CHOL1CHW6 CHEW; +HYDR-3516 PO
[2017-06-09 09:35] VITALS: BP 130/72; PULSE 95; RESP 16; TEMP 99.6; O2SAT 99
[2017-06-09] MEDS ORDERED: ACETAMINOPHEN 500 MG CPLT PO ONE (10:15)
--- NOTE | 2017-06-09 11:04 | RADRPT ---
EXAM DATE/TIME: 06/09/2017 10:20 [facility] COMPARISON: CHEST SINGLE AP, April 26, 2017, 16:50. INDICATIONS : Short of breath, chest pain. MEDICAL HISTORY : Cardiovascular disease. Chronic obstructive pulmonary disease. diabetes SURGICAL HISTORY : 2 coronary atery stents ENCOUNTER: Initial ACUITY: 1 day PAIN SCORE: 10/10 LOCATION: Bilateral chest FINDINGS: Portable upright AP view of the chest demonstrates a normal-sized cardiac silhouette with calcificati on of the aorta. There are innumerable densities overlying the mediastinum and left midlung zone that were not present on the study from approximately 5 weeks ago. No pleural effusion or pneumothorax is identified. Lungs are underinflated and there is mild symmetric bibasilar opacity. Bones and soft ti ssues demonstrate no acute finding. There is severe glenohumeral joint osteoarthritis bilaterally. An old healed right distal clavicle fracture is stable. CONCLUSION: 1. Underinflation with mild bibasilar opacities most likely representing atelectasis given the underi nflation. However, I cannot confidently exclude mild airspace consolidation. If it would assist with clinical management, consider good inspiratory formal PA and lateral views of the chest for further e valuation. 2. Innumerable densities overlying the mediastinum and left midlung zone presumably overlie the patie nt and may be associated with the patient's clothes. Robby Carballo MD on June 09, 2017 at 10:53 Board Certified Radiologist. This report was verified electronically.
[2017-06-09] MEDS ORDERED: AZIT250T3 PO (11:12)
--- NOTE | 2017-06-09 11:13 | PD ---
HPI Chief Complaint: Cold / Flu Symptoms Time Seen by Provider: 10:04 Travel History International Travel<30 days: No Contact w/Intl Traveler<30days: No Traveled to known affect area: No History of Present Illness HPI 81-year-old woman presents emergent department complaining of hurting all over, coughing, chest pain, fevers, feeling poorly. She states she has pain in her feet, legs, head, and really pretty much everywhere. Symptoms been worsening over the past couple days. She lives alone. No other complaints. History Past Medical History Narrative Medical CAD, stents Asthma/COPD Diabetes Hypertension PNEUMOCCOCAL Vaccine (Year): 1 Menopausal: Yes : 11 Para: 8 Social History Alcohol Use: No Tobacco Use: No Allergies-Medications (Allergen,Severity, Reaction): Coded Allergies: tomato (Unverified Allergy, Intermediate, FACIAL SWELLING, 06/09/17) morphine (Unverified Allergy, Mild, Itching, 06/09/17) Reported Meds & Prescriptions Reported Meds & Active Scripts Active Hydrocodone-Acetaminophen 5-325 mg Tab 1 Tab PO Q6H PRN Lantus Solostar Pen Inj (Insulin Glargine) 300 Unit/3 Ml Pen 35 Units SQ HS Atorvastatin (Atorvastatin Calcium) 40 Mg Tab 40 Mg PO HS Humalog Kwikpen Pen Inj (Insulin Lispro (Human) Inj) 300 Unit/3 Ml Pen 15 Units SQ BID Gabapentin 300 Mg Cap 300 Mg PO BID Vitamin D3 Adult Gummies (Cholecalciferol) 1,000 Unit Chew 2,000 Units CHEW DAILY [needles] Unit BID [lancets] Unit BID Spiriva Handihaler (Tiotropium Inh) 18 Mcg Cap 18 Mcg INH DAILY 1 capsule = 18 mcg Metformin (Metformin HCl) 1,000 Mg Tab 1,000 Mg PO BIDPC With meals Clopidogrel (Clopidogrel Bisulfate) 75 Mg Tab 75 Mg PO DAILY Wheelchair (Device) 1 Mis Mis 1 Ea .ROUTE DIRECTED Blood Glucose Test Strips 1 Amanda Amanda 1 Ea .ROUTE BID Potassium Chloride ER (Potassium Chloride) 20 Meq Tab 20 Meq PO DAILY Lisinopril 2.5 Mg Tab 2.5 Mg PO DAILY Aspirin 81 (Aspirin) 81 Mg Tabdr 81 Mg PO DAILY Proventil Hfa 6.7 GM Inh (Albuterol Sulfate) 90 Mcg/Act Aer 2 Puff INH Q4-6H PRN Lasix (Furosemide) 20 Mg Tab 20 Mg PO DAILY Metoprolol Tartrate 25 Mg Tab 25 Mg PO BID Magnesium Citrate Liq (Magnesium Citrate) 300 Ml Liq 300 Ml PO DIRECTED Review of Systems Except as stated in HPI: all other systems reviewed are Neg Physical Exam Narrative GENERAL: 81-year-old woman, anxious, painful. SKIN: Focused skin assessment warm/dry. HEAD: Atraumatic. Normocephalic. EYES: Pupils equal and round. No scleral icterus. No injection or drainage. ENT: No nasal bleeding or discharge. Mucous membranes pink and moist. NECK: Trachea midline. No JVD. CARDIOVASCULAR: Regular rate and rhythm. No murmur appreciated. RESPIRATORY: Normal rate and effort. Lungs are clear without wheezing GASTROINTESTINAL: Abdomen soft, non-tender, nondistended. Hepatic and splenic margins not palpable. MUSCULOSKELETAL: No obvious deformities. No clubbing. No cyanosis. No edema. NEUROLOGICAL: Awake and alert. No obvious cranial nerve deficits. Motor grossly within normal limits. Normal speech. PSYCHIATRIC: Appropriate mood and affect; insight and judgment normal. Data Data Last Documented VS Vital Signs Date Time Temp Pulse Resp B/P (MAP) Pulse Ox O2 Delivery O2 Flow Rate FiO2 06/09/17 09:35 99.6 95 16 130/72 (91) 99 Orders Orders Influenzae A/B Antigen (06/09/17 10:10) Chest, Single Ap (06/09/17 ) Acetaminophen (Tylenol) (06/09/17 10:15) MDM Medical Decision Making Medical Screen Exam Complete: Yes Emergency Medical Condition: Yes Interpretation(s) Influenza negative Chest x-ray: Underinflation with mild bibasilar opacity likely represent atelectasis, possible mild airspace consolidation. Differential Diagnosis Influenza-like illness, URI, pneumonia, other Narrative Course Medical decision making 81-year-old woman presents emergent part URI symptoms, a lot of myalgias and complaints of pain. Does not appear toxic or acutely ill. No definite pneumonia on the chest x-ray but some bibasilar opacities. We'll treat for possible pneumonia. Diagnosis Primary Impression: Pneumonia Patient Instructions: General Instructions Additional Instructions: Take antibiotics as prescribed. Take acetaminophen or ibuprofen as a for fever or body aches. You can return to work after you have had no fever for 24 hours. Drink plenty of fluids to stay well-hydrated. Follow-up with your primary doctor if you are not completely well in 7-10 days. Return to the emergency department for any worsening chest pain, trouble breathing, or any other new or worsening symptoms. Med/Other Pt SpecificInfo: Prescription(s) given Scripts Azithromycin (Azithromycin) 250 Mg Tab 250 MG PO DAILY for Infection, #4 TAB 0 Refills Prov: Lobito Wong MD 06/09/17 Disposition: 01 DISCHARGE HOME Condition: Stable Lobito Wong MD Jun 09, 2017 11:13
[2017-06-09] MEDS ORDERED: AZITHROMYCIN 250 MG TAB PO ONE (11:15)
[2017-06-09 12:06] VITALS: RESP 20
[2017-06-10] MEDS ORDERED: LISI2.5T3 PO (08:10)
[2017-06-10] MEDS ORDERED: POTA-163 PO (08:10)
[2017-06-11] MEDS ORDERED: LISI2.5T3 PO (16:07)
== END 2017-06-09 12:05 | disposition home or self-care (01) ==
LOC: NEPD 09:34
DX: J44.0 Chronic obstructive pulmonary disease with (acute) lower respiratory infection (principal); J18.9 Pneumonia, unspecified organism; E11.9 Type 2 diabetes mellitus without complications; I10 Essential (primary) hypertension; I25.10 Atherosclerotic heart disease of native coronary artery without angina pectoris; Z79.4 Long term (current) use of insulin
CPT/HCPCS: 71045; 87804; 99284

== ENCOUNTER 2017-06-11 21:18 | Inpatient (IN) | payer MEDICARE, MEDICAID ==
[~2017-06-11] VITALS: Ht 167.6 cm; Wt 95.0 kg
[~2017-06-11 21:18] MED LIST changes: +AZIT250T3 PO
[2017-06-11 21:25] VITALS: BP 129/68; PULSE 91; RESP 16; TEMP 99.3; O2SAT 95
[2017-06-11] MEDS ORDERED: DIATRIZOATE MEGLUM/DIATRIZOATE SOD 9 ML CUP ONE ×2 (21:25→21:40)
--- NOTE | 2017-06-11 21:47 | PD ---
HPI Chief Complaint: Chest Pain Time Seen by Provider: 21:33 Travel History International Travel<30 days: No Contact w/Intl Traveler<30days: No Traveled to known affect area: No History of Present Illness HPI 81yo F with PMH of CAD s/p stents, DM, presents to the ED with c/o chest pain today. Said it started 4-5 hours ago and woke her up. Said it is sharp, left sided, nonradiating. Feels a little sob. +Cough. Denies any fever, n/v, focal weakness or numbness. Said she has chronic abdominal pain. Pt was seen on 06/09/17 for cough, generalized pain and CXR showed atelectasis with bibasilar opacities that is likely atelectasis but cant exclude consolidation. Pt was given azithromycin which she took. Said her cough has improved. PFSH Past Medical History Hx Anticoagulant Therapy: Yes Arthritis: Yes (KNEE, BACK) Asthma: Yes Autoimmune Disease: No Blood Disorders: No Anxiety: Yes Depression: No Heart Rhythm Problems: No Cancer: No Cardiac Catheterization: Yes Cardiovascular Problems: Yes High Cholesterol: No Chemotherapy: No Chest Pain: Yes Congestive Heart Failure: No COPD: Yes Cerebrovascular Accident: No Coronary Artery Disease: Yes Diabetes: Yes Patient Takes Glucophage: No Diminished Hearing: Yes ([place]) Endocrine: Yes Gastrointestinal Disorders: Yes (APPENDECTOMY) GERD: No Glaucoma: No Genitourinary: No Headaches: No Hepatitis: No Hiatal Hernia: No Heparin Induced Thrombocytopen: No Hypertension: Yes Immune Disorder: No Implanted Vascular Access Dvce: No Kidney Stones: No Musculoskeletal: No Neurologic: No Psychiatric: No Reproductive: No Respiratory: Yes (asthma) Immunizations Current: Yes Migraines: Yes Myocardial Infarction: Yes Radiation Therapy: No Renal Failure: No Seizures: No Sickle Cell Disease: No Sleep Apnea: No Thyroid Disease: No Ulcer: No Tetanus Vaccination: < 5 Years Influenza Vaccination: Yes PNEUMOCCOCAL Vaccine (Year): 1 ?: Not Menopausal: Yes : 11 Para: 8 Tubal Ligation: Yes Past Surgical History Abdominal Surgery: Yes AICD: No Appendectomy: Yes Body Medical Devices: CARDIAC STENT Cardiac Surgery: Yes Cholecystectomy: Yes Coronary Artery Bypass Graft: Yes Coronary Stent: Yes (x2) Ear Surgery: No Endocrine Surgery: No Eye Surgery: No Genitourinary Surgery: No Gynecologic Surgery: Yes Hysterectomy: Yes Insulin Pump: No Neurologic Surgery: No Oral Surgery: No Pacemaker: No Thoracic Surgery: No Other Surgery: Yes (CYST OFF LEFT ARM ) Social History Alcohol Use: No Tobacco Use: No Substance Use: No Allergies-Medications (Allergen,Severity, Reaction): Coded Allergies: tomato (Unverified Allergy, Intermediate, FACIAL SWELLING, 06/09/17) morphine (Unverified Allergy, Mild, Itching, 06/09/17) Reported Meds & Prescriptions Reported Meds & Active Scripts Active Lisinopril 2.5 Mg Tab 2.5 Mg PO DAILY Potassium Chloride ER (Potassium Chloride) 20 Meq Tab 20 Meq PO DAILY Azithromycin 250 Mg Tab 250 Mg PO DAILY Hydrocodone-Acetaminophen 5-325 mg Tab 1 Tab PO Q6H PRN Lantus Solostar Pen Inj (Insulin Glargine) 300 Unit/3 Ml Pen 35 Units SQ HS Atorvastatin (Atorvastatin Calcium) 40 Mg Tab 40 Mg PO HS Humalog Kwikpen Pen Inj (Insulin Lispro (Human) Inj) 300 Unit/3 Ml Pen 15 Units SQ BID Gabapentin 300 Mg Cap 300 Mg PO BID Vitamin D3 Adult Gummies (Cholecalciferol) 1,000 Unit Chew 2,000 Units CHEW DAILY [needles] Unit BID [lancets] Unit BID Spiriva Handihaler (Tiotropium Inh) 18 Mcg Cap 18 Mcg INH DAILY 1 capsule = 18 mcg Metformin (Metformin HCl) 1,000 Mg Tab 1,000 Mg PO BIDPC With meals Clopidogrel (Clopidogrel Bisulfate) 75 Mg Tab 75 Mg PO DAILY Wheelchair (Device) 1 Mis Mis 1 Ea .ROUTE DIRECTED Blood Glucose Test Strips 1 Amanda Amanda 1 Ea .ROUTE BID Aspirin 81 (Aspirin) 81 Mg Tabdr 81 Mg PO DAILY Proventil Hfa 6.7 GM Inh (Albuterol Sulfate) 90 Mcg/Act Aer 2 Puff INH Q4-6H PRN Lasix (Furosemide) 20 Mg Tab 20 Mg PO DAILY Metoprolol Tartrate 25 Mg Tab 25 Mg PO BID Magnesium Citrate Liq (Magnesium Citrate) 300 Ml Liq 300 Ml PO DIRECTED Review of Systems Except as stated in HPI: all other systems reviewed are Neg Physical Exam Narrative GENERAL: 81yo F in mild distress. SKIN: Focused skin assessment warm/dry. HEAD: Atraumatic. Normocephalic. EYES: Pupils equal and round. No scleral icterus. No injection or drainage. ENT: No nasal bleeding or discharge. Mucous membranes pink and moist. NECK: Trachea midline. No JVD. CARDIOVASCULAR: Regular rate and rhythm. No murmur appreciated. RESPIRATORY: No accessory muscle use. Clear to auscultation. Breath sounds equal bilaterally. GASTROINTESTINAL: Abdomen soft, diffuse ttp. No rebound tenderness or guarding. MUSCULOSKELETAL: No obvious deformities. No clubbing. No cyanosis. No edema. NEUROLOGICAL: Awake and alert. No obvious cranial nerve deficits. Motor grossly within normal limits. Normal speech. Data Data Last Documented VS Vital Signs Date Time Temp Pulse Resp B/P (MAP) Pulse Ox O2 Delivery O2 Flow Rate FiO2 06/12/17 01:19 98.9 81 18 122/67 (85) 96 Room Air Orders Orders Diatrizoate Liq (Md So Liq) (06/11/17 21:25) Diatrizoate Liq (Md So Liq) (06/11/17 21:40) Basic Metabolic Panel (Bmp) (06/11/17 21:50) Complete Blood Count With Diff (06/11/17 21:50) Magnesium (Mg) (06/11/17 21:50) Prothrombin Time / Inr (Pt) (06/11/17 21:50) Act Partial Throm Time (Ptt) (06/11/17 21:50) Troponin I (06/11/17 21:50) Lipase (06/11/17 21:50) Chest, Single Ap (06/11/17 21:50) Ct Abd/Pel W Iv Contrast(Rout) (06/11/17 ) Ketorolac Inj (Toradol Inj) (06/11/17 22:30) Iohexol 350 Inj (Omnipaque 350 Inj) (06/12/17 00:05) Labs Laboratory Tests Test 06/11/17 21:50 White Blood Count 10.2 TH/MM3 Red Blood Count 3.25 MIL/MM3 Hemoglobin 9.1 GM/DL Hematocrit 27.9 % Mean Corpuscular Volume 85.9 FL Mean Corpuscular Hemoglobin 28.1 PG Mean Corpuscular Hemoglobin Concent 32.7 % Red Cell Distribution Width 14.3 % Platelet Count 452 TH/MM3 Mean Platelet Volume 7.8 FL Neutrophils (%) (Auto) 71.7 % Lymphocytes (%) (Auto) 20.2 % Monocytes (%) (Auto) 6.5 % Eosinophils (%) (Auto) 1.1 % Basophils (%) (Auto) 0.5 % Neutrophils # (Auto) 7.3 TH/MM3 Lymphocytes # (Auto) 2.1 TH/MM3 Monocytes # (Auto) 0.7 TH/MM3 Eosinophils # (Auto) 0.1 TH/MM3 Basophils # (Auto) 0.1 TH/MM3 CBC Comment DIFF FINAL Differential Comment Prothrombin Time 12.0 SEC Prothromb Time International Ratio 1.2 RATIO Activated Partial Thromboplast Time 26.9 SEC Blood Urea Nitrogen 21 MG/DL Creatinine 1.08 MG/DL Random Glucose 116 MG/DL Calcium Level 9.4 MG/DL Magnesium Level 2.0 MG/DL Sodium Level 138 MEQ/L Potassium Level 4.6 MEQ/L Chloride Level 104 MEQ/L Carbon Dioxide Level 25.3 MEQ/L Anion Gap 9 MEQ/L Estimat Glomerular Filtration Rate 59 ML/MIN Troponin I LESS THAN 0.02 NG/ML Lipase 137 U/L [facility] Medical Decision Making Medical Screen Exam Complete: Yes Emergency Medical Condition: Yes Interpretation(s) EKG: NSR 85bpm. LAD. Q wave aVL. No significant ST segment elevation or depression. Differential Diagnosis Pneumonia vs. bronchitis vs. ACS vs. chronic abdominal pain vs. colitis Narrative Course 81yo F with chest pain that woke her own a few hours ago. It is atypical but she does have cardiac risk factors. Was just here a few days ago for possible pneumonia vs. atelectasis. Said coughing has improved. Pt has chronic abdominal pain but is tender on exam so will obtain CT. Labs reviewed, no leukocytosis. H/H mildly decreased at 9.1/27.9. Pt denies any blood in stool or black stool. BMP unremarkable. Troponin negative. Lipase normal. CXR again showed bibasilar consolidation either atelectasis or infectious. Pt is already on azithromycin and symptoms improving. CT a/p showed no acute findings. Pt given toradol and pain has resolved. Pt's personal injury law specialist is Dr. Sheldon and she does not remember her last stress test. Last stress test we have was in 2016. Will admit to chest pain center for serial EKG and cardiac enzymes. Diagnosis Primary Impression: Chest pain Qualified Codes: R07.9 - Chest pain, unspecified Admitting Information Admitting Physician Requests: Renetta Gibbs DO Jun 11, 2017 21:47
[2017-06-11 22:21] LABS: AUTOMATED NEUTROPHIL # 7.3 TH/MM3 (1.8-7.7); BASOPHIL # 0.1 TH/MM3 (0-0.2); BASOPHIL % 0.5 % (0.0-2.0); EOSINOPHIL # 0.1 TH/MM3 (0-0.4); EOSINOPHIL % 1.1 % (0.0-4.0); HEMATOCRIT 27.9 % (35.0-46.0); HEMOGLOBIN 9.1 GM/DL (11.6-15.3); LYMPH % 20.2 % (9.0-44.0); LYMPHOCYTE # 2.1 TH/MM3 (1.0-4.8); MEAN CELL VOLUME 85.9 FL (80.0-100.0); MEAN CORPUSCULAR HEMOGLOBIN 28.1 PG (27.0-34.0); MEAN CORPUSCULAR HGB CONC 32.7 % (32.0-36.0); MEAN PLATELET VOLUME 7.8 FL (7.0-11.0); MONO % 6.5 % (0.0-8.0); MONOCYTE # 0.7 TH/MM3 (0-0.9); NEUT % 71.7 % (16.0-70.0); PLATELET COUNT 452 TH/MM3 (150-450); RED BLOOD COUNT 3.25 MIL/MM3 (4.00-5.30); RED CELL DISTRIBUTION WIDTH 14.3 % (11.6-17.2); WHITE BLOOD COUNT 10.2 TH/MM3 (4.0-11.0)
--- NOTE | 2017-06-11 22:24 | RADRPT ---
EXAM DATE/TIME: 06/11/2017 22:03 [facility] COMPARISON: CHEST SINGLE AP, June 09, 2017, 10:20. INDICATIONS : Chest pain. MEDICAL HISTORY : Cardiovascular disease. Chronic obstructive pulmonary disease. diabetes SURGICAL HISTORY : 2 coronary atery stents ENCOUNTER: Initial ACUITY: 1 day PAIN SCORE: 10/10 LOCATION: Bilateral chest FINDINGS: 2 portable frontal views the chest show hypoinflation with bibasilar consolidations unchanged the margo or study. No effusions. Heart is mildly large. Aorta is calcified. Osteoarthritis of the shoulders bi laterally. CONCLUSION: Bibasilar consolidations either relating to atelectasis or infectious infiltrates. David Dickson Jr., MD on June 11, 2017 at 22:21 Board Certified Radiologist. This report was verified electronically.
[2017-06-11 22:30] LABS: INTERNATIONAL NORMALIZED RATIO 1.2 RATIO
[2017-06-11] MEDS ORDERED: KETOROLAC TROMETHAMINE 30 MG/ML (IVP) VIAL IV PUSH ONE (22:30)
[2017-06-11 22:45] LABS: TROPONIN I LESS THAN 0.02 NG/ML (0.02-0.05)
[2017-06-11 22:46] LABS: BICARBONATE 25.3 MEQ/L (21.0-32.0); BLOOD UREA NITROGEN 21 MG/DL (7-18); CALCIUM 9.4 MG/DL (8.5-10.1); CHLORIDE 104 MEQ/L (98-107); CREATININE 1.08 MG/DL (0.50-1.00); GLOMERULAR FILTRATION RATE 59 ML/MIN (>89); GLUCOSE,RANDOM 116 MG/DL (74-106); LIPASE 137 U/L (73-393); SODIUM (NA) 138 MEQ/L (136-145)
[2017-06-11 23:46] VITALS: BP 141/60; PULSE 84; RESP 16; O2SAT 96
[2017-06-12] VITALS (14 sets, daily range): BP systolic 105–153; BP diastolic 52–78; PULSE 70–91; RESP 16–18; TEMP 97.3–98.9; O2SAT 96–99
[2017-06-12] MEDS ORDERED: IOHEXOL 350 MG/ML 10 ML VIAL (for RAD DIAG) IVCONTRAST ONE (00:05)
--- NOTE | 2017-06-12 00:34 | RADRPT ---
EXAM DATE/TIME: 06/12/2017 00:01 [facility] COMPARISON: CT ABDOMEN & PELVIS W/O CONTRAST, July 12, 2014, 3:29. CT ABDOMEN & PELVIS W CONTRAST, May 15, 2014, 14:14. INDICATIONS : Diffuse abdominal pain. IV CONTRAST: 100 cc Omnipaque 350 (iohexol) IV ORAL CONTRAST: No oral contrast ingested. RADIATION DOSE: 16.60 CTDIvol (mGy) MEDICAL HISTORY : Chronic obstructive pulmonary disease. Cardiovascular disease Myocardial infarction.Diabetes. Renal c alculi. SURGICAL HISTORY : Appendectomy. Cholecystectomy.Hysterectomy.CABG. Coronary stent. ENCOUNTER: Initial ACUITY: 2 weeks PAIN SCALE: 7/10 LOCATION: All quadrants. TECHNIQUE: Volumetric scanning of the abdomen and pelvis was performed. Using automated exposure control and ad justment of the mA and/or kV according to patient size, radiation dose was kept as low as reasonably achievable to obtain optimal diagnostic quality images. DICOM format image data is available electro nically for review and comparison. FINDINGS: LOWER LUNGS: 1.4 cm sub-solid nodule in the right lung base. This appears unchanged from PET CT exam of 04/16/2016 . LIVER: Scattered calcifications consistent with prior granulomatous disease. No focal lesion or hepatic duct al dilatation. Gallbladder is unremarkable by CT. SPLEEN: Normal size without lesion. PANCREAS: Stable linear calcification near the pancreatic head. Pancreas is otherwise unremarkable. KIDNEYS: 5 mm calcified calculus in the inferior pole of the left kidney. No hydronephrosis. Kidneys otherwise are symmetrical in size and demonstrates symmetric enhancement. ADRENAL GLANDS: 1 cm left adrenal mass similar to prior PET/CT exam. VASCULAR: Prostatic calcifications with diffuse plaque involving the renal artery origins. BOWEL/MESENTERY: The stomach, small bowel, and colon demonstrate no acute abnormality. There is no free intraperitone al air or fluid. ABDOMINAL WALL: Within normal limits. RETROPERITONEUM: There is no lymphadenopathy. BLADDER: No wall thickening or mass. REPRODUCTIVE: Within normal limits. INGUINAL: There is no lymphadenopathy or hernia. MUSCULOSKELETAL: Within normal limits for patient age. CONCLUSION: 1. No acute CT abdomen the abdomen or pelvis. 2. Stable nonobstructing 5 mm left inferior pole renal calculus. No obstructive uropathy. 3. Stable 1.4 cm sub-solid nodule in the right lung base in comparison to March PET/CT exam. This was previously evaluated with possible consideration of navigation bronchoscopic biopsy. 4. Stable 1 cm left adrenal mass in comparison to prior PET/CT exam. Martín Mack MD on June 12, 2017 at 0:22 Board Certified Radiologist. This report was verified electronically.
[2017-06-12] MEDS ORDERED: SODIUM CHLORIDE 0.9% FLUSH 10 ML FLUSH IV FLUSH PRN (01:45)
[2017-06-12 03:02] LABS: TROPONIN I LESS THAN 0.02 NG/ML (0.02-0.05)
[2017-06-12] MEDS: SODIUM CHLORIDE 0.9% FLUSH 10 ML FLUSH IV FLUSH SCH ×2 (07:53→22:37)
[2017-06-12 09:25] LABS: TROPONIN I LESS THAN 0.02 NG/ML (0.02-0.05)
--- NOTE | 2017-06-12 11:51 | EKG ---
Date Performed: 06/12/2017 Time Performed: 08:23:22 PTAGE: 81 years EKG: Sinus rhythm LEFT ANTERIOR FASCICULAR BLOCK VOLTAGE CRITERIA FOR LVH ABNORMAL ECG NO CHANGE PREVIOUS TRACING : 06/12/2017 02.21 DOCTOR: Derik Rashid Interpretating Date/Time 06/12/2017 11:50:13
--- NOTE | 2017-06-12 11:52 | EKG ---
Date Performed: 06/12/2017 Time Performed: 02:21:19 PTAGE: 81 years EKG: Sinus rhythm LEFT ANTERIOR FASCICULAR BLOCK MODERATE VOLTAGE CRITERIA FOR LVH, CONSIDER NORMAL VARIANT ABNORMAL E CG NO SIG CHANGE PREVIOUS TRACING : 06/11/2017 21.30 DOCTOR: Derik Rashid Interpretating Date/Time 06/12/2017 11:51:27
--- NOTE | 2017-06-12 11:57 | EKG ---
Date Performed: 06/11/2017 Time Performed: 21:30:51 PTAGE: 81 years EKG: Sinus rhythm LEFT ANTERIOR FASCICULAR BLOCK VOLTAGE CRITERIA FOR LVH ABNORMAL ECG MILD CHANGES IN ANTERIOR SEPTUM CLINICAL CORRELATION SUGGESTED PREVIOUS TRACING : 04/26/2017 16.36 DOCTOR: Derik Rashid Interpretating Date/Time 06/12/2017 11:56:44
[2017-06-12] MEDS ORDERED: DEXTROSE 50% IN WATER 50 ML VIAL(D50) IV PUSH PRN (14:45)
[2017-06-12] MEDS ORDERED: GLUCAGON 1 MG/ML VIAL OTHER PRN (14:45)
[2017-06-12] MEDS ORDERED: ACETAMINOPHEN/HYDROcodone 325 MG/5 MG TAB PO PRN (15:00)
[2017-06-12] MEDS ORDERED: RESP: ALBUTEROL 2.5 MG/IPRATROPIUM 0.5 MG NEB (PRN) INH (15:00)
--- NOTE | 2017-06-12 15:12 | HHI.HP ---
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 Quezada Chief Complaint Chest Pain History of Present Illness Jami 81 YO black lady with a known history of CAD and two STENTS placed by Dr. Thomas (covering for Dr. Quezada) in 2010. She has done well since until last couple of days. On the she was here in the ED with a diagnosis of pneumonia but on medication since then is much improved and sputum has cleared significantly. Yesterday she developed severe sharp left chest pain similar to the pain she had prior to her stents. This pain radiated from her left chest to her left arm and left jaw. She was diaphoretic but no SOB or nausea. She actually had two episodes, the first lasting very briefly but the second lasted several minutes. She was in bed at the time and by the time she could get up she was soaked with diaphoresis. This was so similar to her prior cardiac episode that her daughter called [facility] at once. When she received NTG she felt almost immediate relief. Also noted on arrival to be anemic with a documented drop in Hg since the ED visit on the . She denies any GI issues, any bleeding, any black or foul smelling stools so etiology of anemia is unclear but needs to be evaluated. She still follows with Dr. Quezada on a yearly basis but has not yet seen him this year. It is pertinent to note that she had a positive nuclear stress test over a year ago which was not evaluated further so she has known reversible defect suggestive of ischemia. Current episode strongly suggestive of unstable angina. Review of Systems Respiratory: COMPLAINS OF: See HPI Cardiovascular: COMPLAINS OF: See HPI Past Family Social History Allergies: Coded Allergies: tomato (Verified Allergy, Intermediate, FACIAL SWELLING, 06/12/17) morphine (Verified Allergy, Mild, Itching, 06/12/17) Past Medical History CAD ARTHRITIS ASTHMA/COPD HTN Past Surgical History CHOLECYSTECTOMY STENTS HYSTERECTOMY CYST L ARM Reported Medications Reported Meds & Active Scripts Active Lisinopril 2.5 Mg Tab 2.5 Mg PO DAILY Potassium Chloride ER (Potassium Chloride) 20 Meq Tab 20 Meq PO DAILY Azithromycin 250 Mg Tab 250 Mg PO DAILY Hydrocodone-Acetaminophen 5-325 mg Tab 1 Tab PO Q6H PRN Lantus Solostar Pen Inj (Insulin Glargine) 300 Unit/3 Ml Pen 35 Units SQ HS Atorvastatin (Atorvastatin Calcium) 40 Mg Tab 40 Mg PO HS Humalog Kwikpen Pen Inj (Insulin Lispro (Human) Inj) 300 Unit/3 Ml Pen 15 Units SQ BID Gabapentin 300 Mg Cap 300 Mg PO BID Vitamin D3 Adult Gummies (Cholecalciferol) 1,000 Unit Chew 2,000 Units CHEW DAILY Spiriva Handihaler (Tiotropium Inh) 18 Mcg Cap 18 Mcg INH DAILY 1 capsule = 18 mcg Metformin (Metformin HCl) 1,000 Mg Tab 1,000 Mg PO BIDPC With meals Clopidogrel (Clopidogrel Bisulfate) 75 Mg Tab 75 Mg PO DAILY Aspirin 81 (Aspirin) 81 Mg Tabdr 81 Mg PO DAILY Proventil Hfa 6.7 GM Inh (Albuterol Sulfate) 90 Mcg/Act Aer 2 Puff INH Q4-6H PRN Lasix (Furosemide) 20 Mg Tab 20 Mg PO DAILY Metoprolol Tartrate 25 Mg Tab 25 Mg PO BID Magnesium Citrate Liq (Magnesium Citrate) 300 Ml Liq 300 Ml PO DIRECTED Active Ordered Medications Current Medications Medications (Trade) Dose Ordered Sig/[place] Route Start Time Stop Time Status Last Admin (NS Flush) 2 ml UNSCH PRN IV FLUSH 06/12/17 01:45 (NS Flush) 2 ml BID IV FLUSH 06/12/17 09:00 06/12/17 07:53 (D50w (Vial) Inj) 50 ml UNSCH PRN IV PUSH 06/12/17 14:45 UNV (Glucagon Inj) 1 mg UNSCH PRN OTHER 06/12/17 14:45 UNV (NovoLOG SUPPLEMENTAL SCALE) 1 ACHS SLIDING SCALE SQ 06/12/17 17:00 UNV Family History Not contributory Social History No alcohol, tobacco or drugs Supportive family Physical Exam Vital Signs Vital Signs Date Time Temp Pulse Resp B/P (MAP) Pulse Ox O2 Delivery O2 Flow Rate FiO2 06/12/17 13:00 97.9 78 18 138/71 (93) 98 Nasal Cannula 2.00 06/12/17 13:00 97.9 78 18 138/71 (93) 98 Nasal Cannula 2.00 06/12/17 11:26 97.8 76 17 153/78 (103) 99 Room Air 06/12/17 10:21 98 21 06/12/17 10:08 97.8 77 16 131/67 (88) 98 Room Air 06/12/17 08:25 98.2 85 18 122/62 (82) 98 Room Air 1/19/18 07:00 17 06/12/17 06:22 97 21 06/12/17 06:02 98.0 70 18 109/57 (74) 97 Room Air 06/12/17 01:19 98.9 81 18 122/67 (85) 96 Room Air 06/11/17 23:46 84 16 141/60 (87) 96 Room Air 06/11/17 21:25 99.3 91 16 129/68 (88) 95 Physical Exam General WNWD bright affable lady HEENT REYNA, EOMI Bilateral IOL MM Moist, edentulous, no lesions Neck No JVD, masses, nodes or bruits Chest BS clear to bases with no rales, wheezes or rhonchi. Cough still productive but sputum clear CV RSR without GRM Abd Obese soft nontender with no GR Ext Old scar right foot but no CCE currently Laboratory Laboratory Tests Test 06/11/17 21:50 06/12/17 02:25 06/12/17 08:00 White Blood Count 10.2 Red Blood Count 3.25 Hemoglobin 9.1 Hematocrit 27.9 Mean Corpuscular Volume 85.9 Mean Corpuscular Hemoglobin 28.1 Mean Corpuscular Hemoglobin Concent 32.7 Red Cell Distribution Width 14.3 Platelet Count 452 Mean Platelet Volume 7.8 Neutrophils (%) (Auto) 71.7 Lymphocytes (%) (Auto) 20.2 Monocytes (%) (Auto) 6.5 Eosinophils (%) (Auto) 1.1 Basophils (%) (Auto) 0.5 Neutrophils # (Auto) 7.3 Lymphocytes # (Auto) 2.1 Monocytes # (Auto) 0.7 Eosinophils # (Auto) 0.1 Basophils # (Auto) 0.1 CBC Comment DIFF FINAL Differential Comment Prothrombin Time 12.0 Prothromb Time International Ratio 1.2 Activated Partial Thromboplast Time 26.9 Blood Urea Nitrogen 21 Creatinine 1.08 Random Glucose 116 Calcium Level 9.4 Magnesium Level 2.0 Sodium Level 138 Potassium Level 4.6 Chloride Level 104 Carbon Dioxide Level 25.3 Anion Gap 9 Estimat Glomerular Filtration Rate 59 Troponin I LESS THAN 0.02 LESS THAN 0.02 LESS THAN 0.02 Lipase 137 Total Creatine Kinase 77 72 Result Diagram: 06/11/17214906/11/172149 Caprini VTE Risk Assessment Caprini VTE Risk Assessment: Mod/High Risk (score >= 2) Caprini Risk Assessment Model Point Value = 1 Point Value = 2 Point Value = 3 Point Value = 5 Age 41-60 Minor surgery BMI > 25 kg/m2 Swollen legs Varicose veins or History of unexplained or recurrent spontaneous Oral contraceptives or hormone replacement Sepsis (< 1 month) Serious lung disease, including pneumonia (< 1 month) Abnormal pulmonary function Acute myocardial infarction Congestive heart failure (< 1 month) History of inflammatory bowel disease Medical patient at bed rest Age 61-74 Arthroscopic surgery Major open surgery (> 45 min) Laparoscopic surgery (> 45 min) Malignancy Confined to bed (> 72 hours) Immobilizing plaster cast Central venous access Age >= 75 History of VTE Family history of VTE Factor V Leiden Prothrombin [id number] Lupus anticoagulant Anticardiolipin antibodies Elevated serum homocysteine Heparin-induced thrombocytopenia Other congenital or acquired thrombophilia Stroke (< 1 month) Elective arthroplasty Hip, pelvis, or leg fracture Acute spinal cord injury (< 1 month) Prophylaxis Regimen Total Risk Factor Score Risk Level Prophylaxis Regimen 0-1 Low Early ambulation 2 Moderate Order ONE of the following: *Sequential Compression Device (SCD) *Heparin 5000 units SQ BID 3-4 Higher Order ONE of the following medications: *Heparin 5000 units SQ TID *Enoxaparin/Lovenox 40 mg SQ daily (WT < 150 kg, CrCl > 30 mL/min) *Enoxaparin/Lovenox 30 mg SQ daily (WT < 150 kg, CrCl > 10-29 mL/min) *Enoxaparin/Lovenox 30 mg SQ BID (WT < 150 kg, CrCl > 30 mL/min) AND/OR *Sequential Compression Device (SCD) 5 or more Highest Order ONE of the following medications: *Heparin 5000 units SQ TID (Preferred with Epidurals) *Enoxaparin/Lovenox 40 mg SQ daily (WT < 150 kg, CrCl > 30 mL/min) *Enoxaparin/Lovenox 30 mg SQ daily (WT < 150 kg, CrCl > 10-29 mL/min) *Enoxaparin/Lovenox 30 mg SQ BID (WT < 150 kg, CrCl > 30 mL/min) AND *Sequential Compression Device (SCD) Assessment and Plan Problem List: (1) CAD (coronary artery disease) ICD Codes: I25.10 - Atherosclerotic heart disease of [place] coronary artery without angina pectoris Status: Acute Plan: known CAD SP STENTS RECURRENT ANGINA POSITIVE NUCLEAR STRESS TEST ANEMIA RESOLVING URI HTN CHRONIC RENAL FAILURE (2) Decreased GFR ICD Codes: R94.4 - Abnormal results of kidney function studies Status: Chronic (3) Anemia ICD Codes: D64.9 - Anemia, unspecified Status: Acute (4) Diabetes mellitus ICD Codes: E11.9 - Type 2 diabetes mellitus without complications Status: Chronic (5) Asthma ICD Codes: J45.909 - Asthma Status: Chronic (6) Hypertension ICD Codes: I10 - Hypertension Status: Chronic (7) Hyperlipidemia ICD Codes: E78.5 - Hyperlipidemia, unspecified Status: Chronic (8) Abnormal nuclear stress test ICD Codes: R94.39 - Abnormal result of other cardiovascular function study Status: Acute (9) Stented coronary artery ICD Codes: Z95.5 - Presence of coronary angioplasty implant and graft Status: Chronic Derik Rashid MD Jun 12, 2017 15:12
[2017-06-12] MEDS ORDERED: ASPIRIN EC 81 MG TABEC PO SCH (16:00)
[2017-06-12] MEDS: POTASSIUM CHLORIDE 20 MEQ CONTROLLED RELEASE TAB PO SCH (16:00)
[2017-06-12] MEDS ORDERED: PILL SPLITTER OTHER PRN (16:00)
[2017-06-12] MEDS: FUROSEMIDE 20 MG TAB PO SCH (16:00)
[2017-06-12] MEDS: GABAPENTIN 300 MG CAP PO SCH ×2 (16:20→22:36)
[2017-06-12] MEDS: LISINOPRIL 5 MG TAB PO SCH (16:20)
[2017-06-12] MEDS: AZITHROMYCIN 250 MG TAB PO SCH (16:21)
[2017-06-12] MEDS: METOPROLOL TARTRATE 25 MG TAB PO SCH ×2 (16:21→21:00)
[2017-06-12] MEDS: CLOPIDOGREL 75 MG TAB PO SCH (16:21)
[2017-06-12] MEDS: INSULIN ASPART SUPPLEMENTAL SCALE SQ SCH ×2 (17:00→21:00)
--- NOTE | 2017-06-12 17:05 | HHI.HP ---
HPI Service Family Medicine Primary Care Physician No Primary Care Physician Admission Diagnosis Chest pain Diagnoses: International Travel<30 Days: No Contact w/Intl Traveler<30days: No Known Affected Area: No History of Present Illness 81 y/o , hx of CAD, positive nuclear stress test with no further investigation, and hypertension, came in last night with acute chest pain starting at 10:30PM of 10/10 pain. Of note, the patient appears to have mild MR and is a difficult historian. She states the pain was sharp and stabbing in the middle of her chest and shot down her left arm. She says the pain was intermittent, not constant. She did not try any medications for the chest pain. She has never had pain like this before. She came to the ED and they gave her medicine, and the chest pain went away. They kept her overnight in the chest pain center and contacted her orthopedic shoe maker today. Due to her comorbidities, the ED physician would like her to stay overnight. Per chart review the patient has a questionable history of COPD and recent visit to ED for URI symptoms; She intermittently has difficulties breathing. She says this is new. She gets short of breath and has to sit up, then it gets better. She usually uses a nebulizer but she hasn't been using it here in the ED. She recently came into the ED and was treated for possible pneumoniae with azithromycin. She has been coughing up phlegm.. Denies any diarrhea/ constipation. She sometimes has headache. Denies dizzyness/blurry vision. She regularly sees her cardioligist and states she did a stress test last month with normal results. However, per chart review it appears that she had a positive nuclear stress test at some point over a year ago and it was never followed up. Review of Systems Constitutional: DENIES: Fever, Weight gain Endocrine: DENIES: Polydipsia, Polyuria Eyes: DENIES: Photosensitivity Ears, nose, mouth, throat: DENIES: Hearing loss Respiratory: DENIES: Hemoptysis Cardiovascular: DENIES: PND, Lower Extremity Edema Gastrointestinal: DENIES: Diarrhea, Nausea Genitourinary: DENIES: Abnormal vaginal bleeding, Dysmenorrhea Musculoskeletal: DENIES: Stiffness, Joint Swelling Neurologic: DENIES: Seizures Psychiatric: DENIES: Mood changes, Depression Past Family Social History Past Medical History PMH: DM Type 2: insulin, metformin, no history of foot ulcers. Humalog 15 units in morning, 15 units at night. Lantus 40 units at night. HLD: on statin HTN: metoprolol 25 mg daily CAD, hx of RCA stent: Dr. 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 smoked in past, quit in 2007, smoked about 1ppd. used to drink "a heap of beer" when she was younger, occasional glass of wine now. no drugs or history of drug use. lives in an apartment by herself, her daughter checks on her everyday. PSH: gallstone surgery, appendectomy, cyst removal from left wrist, cardiac cath 2006 , RCA stent. Relevant Imaging studies July, non-invasive carotid report:mild plaque involving the left ICA at the bulb level. 20% stenosis involving the right ICA at the bulb level. Normal antegrade flow in both vertebral arteries. Jun, 2011 ECHO: EF 60%, mild aortic stenosis, mild aortic regurge, mild tricuspid regurge November, stress test: there were no reversible perfusion defects, there no fixed perfusion defects. Jun, 2012 Aorta scan: essentially normal scan of abdominal aorta with a maximum diameter of 2.6cm. July 2013 ECHO: EF 60%, mild Mitral/aortic/tricuspid regurgitation July 2014 cardiac nuclear stress tests: Normal ventricular function, no evidence of ischemia Other Physicians: Dr. Ramsey - Web Site Administrator Dr. Navarro - Endoscopy Technican Allergies: Coded Allergies: tomato (Verified Allergy, Intermediate, FACIAL SWELLING, 06/12/17) morphine (Verified Allergy, Mild, Itching, 06/12/17) Physical Exam Vital Signs Vital Signs Date Time Temp Pulse Resp B/P (MAP) Pulse Ox O2 Delivery O2 Flow Rate FiO2 06/12/17 14:30 97.3 86 18 115/59 (77) 97 06/12/17 13:00 97.9 78 18 138/71 (93) 98 Nasal Cannula 2.00 06/12/17 13:00 97.9 78 18 138/71 (93) 98 Nasal Cannula 2.00 06/12/17 11:26 97.8 76 17 153/78 (103) 99 Room Air 06/12/17 10:21 98 21 06/12/17 10:08 97.8 77 16 131/67 (88) 98 Room Air 06/12/17 08:25 98.2 85 18 122/62 (82) 98 Room Air 06/12/17 07:00 17 06/12/17 06:22 97 21 06/12/17 06:02 98.0 70 18 109/57 (74) 97 Room Air 06/12/17 01:19 98.9 81 18 122/67 (85) 96 Room Air 06/11/17 23:46 84 16 141/60 (87) 96 Room Air 06/11/17 21:25 99.3 91 16 129/68 (88) 95 Physical Exam GENERAL: This is a well-nourished, well-developed patient, in no apparent distress. SKIN: No rashes, ecchymoses or lesions. Cool and dry. HEAD: Atraumatic. Normocephalic. No temporal or scalp tenderness. EYES: Pupils equal round and reactive. Extraocular motions intact. No scleral icterus. No injection or drainage. ENT: Nose without bleeding, purulent drainage or septal hematoma. Throat without erythema, tonsillar hypertrophy or exudate. Uvula midline. Airway patent. NECK: Trachea midline. No JVD or lymphadenopathy. Supple, nontender, no meningeal signs. CARDIOVASCULAR: Regular rate and rhythm without murmurs, gallops, or rubs. RESPIRATORY: Lungs equal bilaterally, mild wheezing heard throughout, more prominent in lower lobes. No rales or rhonchi. No coughing observed GASTROINTESTINAL: Abdomen soft, non-tender, nondistended. No hepato-splenomegaly , or palpable masses. No guarding. MUSCULOSKELETAL: Extremities without clubbing, cyanosis, or edema. No joint tenderness, effusion, or edema noted. No calf tenderness. Negative Homans sign bilaterally. NEUROLOGICAL: Awake and alert. Cranial nerves II through XII intact. Motor and sensory grossly within normal limits. Five out of 5 muscle strength in all muscle groups. Normal speech. Laboratory Laboratory Tests Test 06/11/17 21:50 06/12/17 02:25 06/12/17 08:00 White Blood Count 10.2 Red Blood Count 3.25 Hemoglobin 9.1 Hematocrit 27.9 Mean Corpuscular Volume 85.9 Mean Corpuscular Hemoglobin 28.1 Mean Corpuscular Hemoglobin Concent 32.7 Red Cell Distribution Width 14.3 Platelet Count 452 Mean Platelet Volume 7.8 Neutrophils (%) (Auto) 71.7 Lymphocytes (%) (Auto) 20.2 Monocytes (%) (Auto) 6.5 Eosinophils (%) (Auto) 1.1 Basophils (%) (Auto) 0.5 Neutrophils # (Auto) 7.3 Lymphocytes # (Auto) 2.1 Monocytes # (Auto) 0.7 Eosinophils # (Auto) 0.1 Basophils # (Auto) 0.1 CBC Comment DIFF FINAL Differential Comment Prothrombin Time 12.0 Prothromb Time International Ratio 1.2 Activated Partial Thromboplast Time 26.9 Blood Urea Nitrogen 21 Creatinine 1.08 Random Glucose 116 Calcium Level 9.4 Magnesium Level 2.0 Sodium Level 138 Potassium Level 4.6 Chloride Level 104 Carbon Dioxide Level 25.3 Anion Gap 9 Estimat Glomerular Filtration Rate 59 Troponin I LESS THAN 0.02 LESS THAN 0.02 LESS THAN 0.02 Lipase 137 Total Creatine Kinase 77 72 Result Diagram: 06/11/17214906/11/172149 Septic Shock Reassessment Septic shock perfusion: reassessment completed Caprini VTE Risk Assessment Caprini VTE Risk Assessment: Mod/High Risk (score >= 2) Caprini Risk Assessment Model Point Value = 1 Point Value = 2 Point Value = 3 Point Value = 5 Age 41-60 Minor surgery BMI > 25 kg/m2 Swollen legs Varicose veins or History of unexplained or recurrent spontaneous Oral contraceptives or hormone replacement Sepsis (< 1 month) Serious lung disease, including pneumonia (< 1 month) Abnormal pulmonary function Acute myocardial infarction Congestive heart failure (< 1 month) History of inflammatory bowel disease Medical patient at bed rest Age 61-74 Arthroscopic surgery Major open surgery (> 45 min) Laparoscopic surgery (> 45 min) Malignancy Confined to bed (> 72 hours) Immobilizing plaster cast Central venous access Age >= 75 History of VTE Family history of VTE Factor V Leiden Prothrombin [id number] Lupus anticoagulant Anticardiolipin antibodies Elevated serum homocysteine Heparin-induced thrombocytopenia Other congenital or acquired thrombophilia Stroke (< 1 month) Elective arthroplasty Hip, pelvis, or leg fracture Acute spinal cord injury (< 1 month) Prophylaxis Regimen Total Risk Factor Score Risk Level Prophylaxis Regimen 0-1 Low Early ambulation 2 Moderate Order ONE of the following: *Sequential Compression Device (SCD) *Heparin 5000 units SQ BID 3-4 Higher Order ONE of the following medications: *Heparin 5000 units SQ TID *Enoxaparin/Lovenox 40 mg SQ daily (WT < 150 kg, CrCl > 30 mL/min) *Enoxaparin/Lovenox 30 mg SQ daily (WT < 150 kg, CrCl > 10-29 mL/min) *Enoxaparin/Lovenox 30 mg SQ BID (WT < 150 kg, CrCl > 30 mL/min) AND/OR *Sequential Compression Device (SCD) 5 or more Highest Order ONE of the following medications: *Heparin 5000 units SQ TID (Preferred with Epidurals) *Enoxaparin/Lovenox 40 mg SQ daily (WT < 150 kg, CrCl > 30 mL/min) *Enoxaparin/Lovenox 30 mg SQ daily (WT < 150 kg, CrCl > 10-29 mL/min) *Enoxaparin/Lovenox 30 mg SQ BID (WT < 150 kg, CrCl > 30 mL/min) AND *Sequential Compression Device (SCD) Assessment and Plan Assessment and Plan 81-year-old female, past medical history of CAD status post stent placement, possible positive nuclear stress test, hypertension, and recent us for M[place]ika illness presents with episode of chest pain and negative workup. Due to comorbid conditions we are keeping patient and following up with her private orthopedic shoe maker. Problem List: (1) Anemia ICD Codes: D64.9 - Anemia, unspecified Status: Acute Plan: Hemoglobin 9.1, from 11.1 in April Anemia of chronic disease versus acute anemia associated with GI bleed Follow-up H&H in the morning Follow-up Hemoccult Add iron and vitamin C (2) CAD (coronary artery disease) ICD Codes: I25.10 - Atherosclerotic heart disease of [place] coronary artery without angina pectoris Status: Acute Plan: Hx of CAD status post 2 stent placement, CABG, [place] Questionable hx of positive nuclear stress test ACS w/u negative on 06/11 Continue atorvastatin 40 daily Continue metoprolol 25 twice a day Continue RANJIT inhibitor Continue Aspirin (low likelihood of acute anemia/GI bleed) f/u with cardiology consult (3) COPD (chronic obstructive pulmonary disease) ICD Codes: J44.9 - Chronic obstructive pulmonary disease Status: Chronic Plan: COPD vs. Asthma vs. Pneumonia (likely bronchitis) vs. CHF? f/u PFTs Cont Duonebs q6h Cont Albuterol PRN f/u STAT BNP f/u STAT CBC f/u sputum cx Cont Azithromycin Cont diuretics: Lasix 20 PO daily w/ KCl 20meq daily f/u echo 06/11, 06/12: No acute findings. Possible fluid overload, confirmed with radiologist singer songwriter (4) Diabetes mellitus ICD Codes: E11.9 - Type 2 diabetes mellitus without complications Status: Chronic Plan: Hold Home meds Insulin sliding scale (5) FENGI/DVT Status: Acute Plan: Fluids: By mouth fluids Electrolytes: BMP normal, follow-up BMP in a.m. Nutrition: Regular diet GI prophylaxis: Not indicated VT prophylaxis: Lovenox 30 mg, possible history of renal failure Physician Certification 2 Midnight Certification Type: Admission for Inpatient Services Order for Inpatient Services The services are ordered in accordance with Medicare regulations or non- Medicare payer requirements, as applicable. In the case of services not specified as inpatient-only, they are appropriately provided as inpatient services in accordance with the 2-midnight benchmark. Estimated LOS (days): 2 days is the estimated time the patient will need to remain in the hospital, assuming treatment plan goals are met and no additional complications. Post-Hospital Plan: Home Stephanie Johnson MD R2 Jun 12, 2017 17:05
[2017-06-12] MEDS ORDERED: ONDANSETRON HCL 4 MG/2 ML VIAL IVP PRN (17:45)
[2017-06-12] MEDS ORDERED: BISACODYL 10 MG SUPP RECTAL PRN (17:45)
[2017-06-12] MEDS ORDERED: LACTULOSE SYRUP 20 GM/30 ML CUP PO PRN (17:45)
[2017-06-12] MEDS ORDERED: MAGNESIUM HYDROXIDE SUSP 30 ML CUP PO PRN (17:45)
[2017-06-12] MEDS ORDERED: SENNOSIDES 8.6 MG TAB PO PRN (17:45)
[2017-06-12] MEDS ORDERED: NALOXONE HCL 0.4 MG/ML AMP IV PUSH PRN (17:45)
[2017-06-12] MEDS ORDERED: TEMAZEPAM 15 MG CAP PO PRN (17:45)
[2017-06-12] MEDS ORDERED: ACETAMINOPHEN 325 MG TAB PO PRN (17:45)
[2017-06-12] MEDS ORDERED: ENOXAPARIN SODIUM 40 MG/0.4 ML SYRINGE SQ SCH (18:00)
[2017-06-12] MEDS ORDERED: RESP: ALBUTEROL 2.5 MG/3 ML NEB (PRN) INH (18:00)
[2017-06-12] MEDS ORDERED: hydrALAZINE HCL 20 MG/ML VIAL IV PUSH PRN (18:15)
[2017-06-12] MEDS: TIOTROPIUM BROMIDE 18 MCG INH INH SCH (18:18)
--- NOTE | 2017-06-12 19:15 | RADRPT ---
EXAM DATE/TIME: 06/12/2017 18:54 [facility] COMPARISON: CHEST PA & LAT, August 20, 2015, 15:59. INDICATIONS : Shortness of breath. Cough. MEDICAL HISTORY : Cardiovascular disease. Chronic obstructive pulmonary disease. Diabetes. SURGICAL HISTORY : Coronary artery stent. ENCOUNTER: Initial ACUITY: 1 day PAIN SCORE: 0/10 LOCATION: Bilateral chest FINDINGS: PA and lateral views of the chest demonstrate the lungs to be symmetrically aerated without evidence of mass, infiltrate or effusion. The cardiomediastinal contours are unremarkable. Old trauma involvi ng the distal right clavicle. Advanced osteoarthritis involving the shoulders bilaterally. CONCLUSION: No acute disease. David Dickson Jr., MD on June 12, 2017 at 19:12 Board Certified Radiologist. This report was verified electronically.
[2017-06-12] MEDS: RESP: ALBUTEROL 2.5 MG/IPRATROPIUM 0.5 MG NEB (SCH) INH (20:43)
[2017-06-12] MEDS ORDERED: INSULIN ASPART 1,000 UNITS/10 ML VIAL SQ SCH (21:00)
[2017-06-12] MEDS ORDERED: INSULIN DETEMIR 100 UNITS/ML VIAL SQ SCH (21:00)
[2017-06-12] MEDS: ATORVASTATIN 40 MG TAB PO SCH (22:36)
[2017-06-12] MEDS: FERROUS SULFATE 325 MG (65 MG ELEMENTAL IRON) TAB PO SCH (22:37)
[2017-06-12] MEDS: ASCORBIC ACID 500 MG TAB PO SCH (22:37)
[2017-06-12] MEDS: ENOXAPARIN SODIUM 30 MG/0.3 ML SYRINGE SQ SCH (22:43)
[2017-06-13] VITALS (13 sets, daily range): BP systolic 102–138; BP diastolic 52–74; PULSE 72–93; RESP 18–22; TEMP 98.2–98.4; O2SAT 96–98
[2017-06-13] MEDS: RESP: ALBUTEROL 2.5 MG/IPRATROPIUM 0.5 MG NEB (SCH) INH ×4 (03:32→20:52)
[2017-06-13 06:29] LABS: AUTOMATED NEUTROPHIL # 3.5 TH/MM3 (1.8-7.7); BASOPHIL % 0.5 % (0.0-2.0); EOSINOPHIL # 0.1 TH/MM3 (0-0.4); EOSINOPHIL % 1.9 % (0.0-4.0); HEMATOCRIT 24.6 % (35.0-46.0); HEMOGLOBIN 8.4 GM/DL (11.6-15.3); LYMPH % 28.9 % (9.0-44.0); LYMPHOCYTE # 1.7 TH/MM3 (1.0-4.8); MEAN CELL VOLUME 85.7 FL (80.0-100.0); MEAN CORPUSCULAR HEMOGLOBIN 29.2 PG (27.0-34.0); MEAN PLATELET VOLUME 7.7 FL (7.0-11.0); MONO % 6.9 % (0.0-8.0); MONOCYTE # 0.4 TH/MM3 (0-0.9); NEUT % 61.8 % (16.0-70.0); PLATELET COUNT 398 TH/MM3 (150-450); RED BLOOD COUNT 2.87 MIL/MM3 (4.00-5.30); RED CELL DISTRIBUTION WIDTH 14.1 % (11.6-17.2); WHITE BLOOD COUNT 5.7 TH/MM3 (4.0-11.0)
[2017-06-13 06:37] LABS: ALBUMIN 2.5 GM/DL (3.4-5.0); ALKALINE PHOSPHATASE 75 U/L (45-117); ALT (GPT) 35 U/L (10-53); AST (GOT) 25 U/L (15-37); BICARBONATE 25.9 MEQ/L (21.0-32.0); BLOOD UREA NITROGEN 17 MG/DL (7-18); CALCIUM 8.7 MG/DL (8.5-10.1); CHLORIDE 109 MEQ/L (98-107); CHOLESTEROL 113 MG/DL (120-200); CHOLESTEROL/ HDL RATIO 3.14 RATIO; CREATININE 0.84 MG/DL (0.50-1.00); GLOMERULAR FILTRATION RATE 79 ML/MIN (>89); GLUCOSE,RANDOM 107 MG/DL (74-106); HDL CHOLESTEROL 35.9 MG/DL (40.0-60.0); LDL CHOLESTEROL 64 MG/DL (0-99); SODIUM (NA) 143 MEQ/L (136-145); TOTAL BILIRUBIN ADULT 0.3 MG/DL (0.2-1.0); TOTAL PROTEIN 6.9 GM/DL (6.4-8.2); TRIGLYCERIDES 68 MG/DL (42-150)
--- NOTE | 2017-06-13 06:50 | RADRPT ---
EXAM DATE/TIME: 06/13/2017 06:35 [facility] COMPARISON: CT ABDOMEN & PELVIS W CONTRAST, June 12, 2017, 0:01. CHEST PA & LAT, June 12, 2017, 18:54. INDICATIONS : MEDICAL HISTORY : Cardiovascular disease. Chronic obstructive pulmonary disease. Diabetes mellitus type II. SURGICAL HISTORY : Coronary Artery Stent ENCOUNTER: Subsequent ACUITY: 2 days PAIN SCORE: 7/10 LOCATION: Bilateral chest FINDINGS: Redemonstration of a 1.5 cm nodule in the right lower lobe. Mild diffuse interstitial prominence. Car diomediastinal contours are stable. Remainder of the exam is unchanged. CONCLUSION: 1. Redemonstration of a 1.5 cm right lower lobe nodule. 2. Mild interstitial prominence which may reflect mild positive fluid balance. Martín Mack MD on June 13, 2017 at 6:46 Board Certified Radiologist. This report was verified electronically.
[2017-06-13] MEDS: INSULIN ASPART SUPPLEMENTAL SCALE SQ SCH ×4 (08:00→21:12)
[2017-06-13] MEDS: SODIUM CHLORIDE 0.9% FLUSH 10 ML FLUSH IV FLUSH SCH ×2 (08:59→21:10)
[2017-06-13] MEDS: TIOTROPIUM BROMIDE 18 MCG INH INH SCH (08:59)
[2017-06-13] MEDS: LISINOPRIL 5 MG TAB PO SCH (09:00)
[2017-06-13] MEDS: AZITHROMYCIN 250 MG TAB PO SCH (09:01)
[2017-06-13] MEDS: FERROUS SULFATE 325 MG (65 MG ELEMENTAL IRON) TAB PO SCH (09:01)
[2017-06-13] MEDS: GABAPENTIN 300 MG CAP PO SCH ×2 (09:02→21:10)
[2017-06-13] MEDS: FUROSEMIDE 20 MG TAB PO SCH (09:02)
[2017-06-13] MEDS: METOPROLOL TARTRATE 25 MG TAB PO SCH ×2 (09:02→21:00)
[2017-06-13] MEDS: CLOPIDOGREL 75 MG TAB PO SCH (09:02)
[2017-06-13] MEDS: POTASSIUM CHLORIDE 20 MEQ CONTROLLED RELEASE TAB PO SCH (09:02)
[2017-06-13] MEDS: ASCORBIC ACID 500 MG TAB PO SCH (09:03)
[2017-06-13] MEDS: ASPIRIN EC 325 MG TABEC PO SCH (09:03)
--- NOTE | 2017-06-13 10:25 | HHI.PR ---
Subjective Remarks pt denies chest pain Objective Vital Signs Date Time Temp Pulse Resp B/P (MAP) Pulse Ox O2 Delivery O2 Flow Rate FiO2 06/13/17 07:34 84 06/13/17 06:05 98.4 74 18 137/74 (95) 96 06/13/17 04:54 88 06/13/17 00:05 78 06/12/17 23:30 98.1 86 18 105/55 (72) 96 06/12/17 21:04 91 06/12/17 20:44 97 06/12/17 19:44 98.1 84 18 106/52 (70) 97 06/12/17 18:42 89 06/12/17 14:30 97.3 86 18 115/59 (77) 97 06/12/17 13:00 97.9 78 18 138/71 (93) 98 Nasal Cannula 2.00 06/12/17 13:00 97.9 78 18 138/71 (93) 98 Nasal Cannula 2.00 06/12/17 11:26 97.8 76 17 153/78 (103) 99 Room Air 06/12/17 10:21 98 21 I/O 06/12/17 06/12/17 06/12/17 06/13/17 06/13/17 06/13/17 07:00 15:00 23:00 07:00 15:00 23:00 Intake Total 500 ml 360 ml Output Total 1100 ml Balance -600 ml 360 ml Intake Oral 500 ml 360 ml Output Urine Total 1100 ml # Voids 1 2 1 3 # Bowel Movements 0 0 0 VSS CHEST: CTA HEART: S1, S2 RRR ABD: ST, NT EXT: No edema Result Diagram: 06/13/17 0536 06/13/17 0530 Assessment and Plan Assessment and Plan pt is chest pain free. she is ruled out for SD. had normal stress test in my office 2 months ago. she is cleared to be discharged home. I will see her in my office next week. Merlyn Cavazos MD Jun 13, 2017 10:25
--- NOTE | 2017-06-13 12:34 | HHI.DCPOC ---
Discharge Care Plan Diagnosis: (1) Anemia (2) CAD (coronary artery disease) (3) Decreased GFR (4) Hypertension (5) Chest pain Goals to Promote Your Health * To prevent worsening of your condition and complications * To maintain your health at the optimal level Directions to Meet Your Goals Take your medications as prescribed Follow your dietary instruction Follow activity as directed Keep your appointments as scheduled Take your immunizations and boosters as scheduled If your symptoms worsen call your PCP, if no PCP go to Urgent Care Center or Emergency Room Smoking is Dangerous to Your Health. Avoid second hand smoke Call the 24-hour hour crisis hotline for domestic abuse at Rupesh Beckford MD R3 Jun 13, 2017 12:34
[2017-06-13] MEDS ORDERED: FERR325T20 PO (12:37)
--- NOTE | 2017-06-13 12:41 | HHI.FPPN ---
Subjective Remarks Attending admission note: Patient seen and examined with the resident team. 81- year-old woman with a known history of coronary artery disease , status post stents who had been seen for respiratory infection in the [facility] emergency room several days prior to presenting with complaints of severe sharp left chest pain radiating to the left chest and left arm and left jaw. Patient reported additional diaphoresis, no shortness breath or nausea vomiting. Patient was evaluated through the Chest pain center and admission was advised by the chest pain center. Patient's burner tender is Dr. Quezada who will see her in the hospital. Old records to be reviewed. Objective Vitals Vital Signs Date Time Temp Pulse Resp B/P (MAP) Pulse Ox O2 Delivery O2 Flow Rate FiO2 06/13/17 12:25 98.2 90 22 111/60 (77) 98 06/13/17 11:58 89 06/13/17 07:34 84 06/13/17 06:05 98.4 74 18 137/74 (95) 96 06/13/17 04:54 88 06/13/17 00:05 78 06/12/17 23:30 98.1 86 18 105/55 (72) 96 06/12/17 21:04 91 06/12/17 20:44 97 06/12/17 19:44 98.1 84 18 106/52 (70) 97 06/12/17 18:42 89 06/12/17 14:30 97.3 86 18 115/59 (77) 97 06/12/17 13:00 97.9 78 18 138/71 (93) 98 Nasal Cannula 2.00 06/12/17 13:00 97.9 78 18 138/71 (93) 98 Nasal Cannula 2.00 I/O 06/12/17 06/12/17 06/12/17 06/13/17 06/13/17 06/13/17 07:00 15:00 23:00 07:00 15:00 23:00 Intake Total 500 ml 360 ml Output Total 1100 ml Balance -600 ml 360 ml Intake Oral 500 ml 360 ml Output Urine Total 1100 ml # Voids 1 2 1 3 # Bowel Movements 0 0 0 Result Diagram: 06/13/17 0536 06/13/17 0530 Objective Remarks Vital signs noted. Gen. appearance: Older woman who is delightful in conversation , makes excellent eye contact and normal affect. HEENT: Nonlocalizing. Neck: No bruits or thyromegaly. Lungs: Clear to auscultation diminished breath sounds at the bases. Cardiac: S1-S2, no S3 or irregularities appreciated, there is a soft systolic murmur left sternal border. Abdomen: Soft, nontender, no apparent organomegaly or masses. Extremities: Intact pedal pulses, feet are warm and dry, there is no pedal edema. A/P Assessment and Plan 81-year-old female, past medical history of CAD status post stent placement, history of a positive nuclear stress test in the past admitted for further cardiac evaluation and consultation with patient's regular burner tender Dr. Quezada Case reviewed and discussed with the resident team. Agree with plan of care is discussed with me and documented in the resident note. Problem List: (1) Anemia ICD Codes: D64.9 - Anemia, unspecified Status: Acute Plan: Hemoglobin 9.1, from 11.1 in April Anemia of chronic disease versus acute anemia associated with GI bleed Follow-up H&H in the morning Follow-up Hemoccult Add iron and vitamin C (2) CAD (coronary artery disease) ICD Codes: I25.10 - Atherosclerotic heart disease of [place] coronary artery without angina pectoris Status: Acute Plan: Hx of CAD status post 2 stent placement, CABG, [place] Questionable hx of positive nuclear stress test ACS w/u negative on 06/11 Continue atorvastatin 40 daily Continue metoprolol 25 twice a day Continue RANJIT inhibitor Continue Aspirin (low likelihood of acute anemia/GI bleed) f/u with cardiology consult (3) COPD (chronic obstructive pulmonary disease) ICD Codes: J44.9 - Chronic obstructive pulmonary disease Status: Chronic Plan: COPD vs. Asthma vs. Pneumonia (likely bronchitis) vs. CHF? f/u PFTs Cont Duonebs q6h Cont Albuterol PRN f/u STAT BNP f/u STAT CBC f/u sputum cx Cont Azithromycin Cont diuretics: Lasix 20 PO daily w/ KCl 20meq daily f/u echo 06/11, 06/12: No acute findings. Possible fluid overload, confirmed with radiologist regional planner (4) Diabetes mellitus ICD Codes: E11.9 - Type 2 diabetes mellitus without complications Status: Chronic Plan: Hold Home meds Insulin sliding scale (5) FENGI/DVT Status: Acute Plan: Fluids: By mouth fluids Electrolytes: BMP normal, follow-up BMP in a.m. Nutrition: Regular diet GI prophylaxis: Not indicated VT prophylaxis: Lovenox 30 mg, possible history of renal failure Wilner Segura MD Jun 13, 2017 12:41
--- NOTE | 2017-06-13 12:42 | HHI.FF ---
Face to Face Verification Diagnosis: (1) JAIR (acute kidney injury) (2) Chest pain (3) Acute renal insufficiency (4) CAD (coronary artery disease) (5) Hyperlipidemia (6) Hypertension (7) Bronchitis Physical Therapy Order: Improve ambulation, Strength and gait training Home Health Nursing Order: Medical education Signs/symptoms of disease process Diabetic education Medication education-adverse effect Nursing assessment with vital signs I have seen patient Rachel Cao on 06/13/17. My clinical findings support the need for the requested home health care services because: Ltd mobility - disease progression Limited ability to care for self High risk of falls I certify that my clinical findings support that this patient is homebound because: Unsteady gait/balance Unsafe to leave home unassisted Rupesh Beckford MD R3 Jun 13, 2017 12:42
[2017-06-13] MEDS ORDERED: ALBU0.08 NEB (12:43)
--- NOTE | 2017-06-13 13:28 | HHI.FPPN ---
Addendum to progress note ADDENDUM Reason for addendum: Additonal documentation Additional information We appreciate PTs recommendations. After in depth discussion with patient she reports that her daughter is very involved with her care and checks in on her multiple times daily. She expresses being comfortable with a home discharge with home health and PT. Pt to be discharged with home health and PT. Rupesh Beckford MD R3 Jun 13, 2017 13:28
[2017-06-13] MEDS: ATORVASTATIN 40 MG TAB PO SCH (21:10)
[2017-06-13] MEDS: ENOXAPARIN SODIUM 30 MG/0.3 ML SYRINGE SQ SCH (21:11)
[2017-06-14] MEDS: RESP: ALBUTEROL 2.5 MG/IPRATROPIUM 0.5 MG NEB (SCH) INH ×2 (03:17→10:45)
[2017-06-14 03:33] VITALS: BP 104/56; PULSE 88; RESP 18; TEMP 97.9; O2SAT 95
[2017-06-14 04:04] VITALS: PULSE 85
[2017-06-14 07:51] VITALS: PULSE 91
[2017-06-14] MEDS: INSULIN ASPART SUPPLEMENTAL SCALE SQ SCH (08:00)
[2017-06-14 08:11] VITALS: BP 110/60; PULSE 72; RESP 20; TEMP 97.9; O2SAT 97
[2017-06-14 08:20] LABS: AUTOMATED NEUTROPHIL # 5.1 TH/MM3 (1.8-7.7); BASOPHIL % 0.6 % (0.0-2.0); EOSINOPHIL # 0.2 TH/MM3 (0-0.4); EOSINOPHIL % 2.3 % (0.0-4.0); HEMOGLOBIN 8.7 GM/DL (11.6-15.3); LYMPH % 23.1 % (9.0-44.0); LYMPHOCYTE # 1.8 TH/MM3 (1.0-4.8); MEAN CELL VOLUME 85.2 FL (80.0-100.0); MEAN CORPUSCULAR HEMOGLOBIN 28.5 PG (27.0-34.0); MEAN CORPUSCULAR HGB CONC 33.5 % (32.0-36.0); MEAN PLATELET VOLUME 7.1 FL (7.0-11.0); MONO % 7.4 % (0.0-8.0); MONOCYTE # 0.6 TH/MM3 (0-0.9); NEUT % 66.6 % (16.0-70.0); PLATELET COUNT 440 TH/MM3 (150-450); RED BLOOD COUNT 3.06 MIL/MM3 (4.00-5.30); RED CELL DISTRIBUTION WIDTH 14.5 % (11.6-17.2); WHITE BLOOD COUNT 7.6 TH/MM3 (4.0-11.0)
--- NOTE | 2017-06-14 09:26 | HHI.FPPN ---
Subjective Remarks Pt seen and examined this AM. Pt is continuing to ambulate with assistance x 2. She is voiding and passing BM without difficulty. She has not seen any blood in her stool. She has seen improvement with her breathing with the addition of nebulizer breathing treatments. She denies any chest pain/shortness of breath. She denies any dizziness. She was expecting to go home yesterday with home health and she is wondering why she still here. She states her daughter is coming today. Objective Vitals Vital Signs Date Time Temp Pulse Resp B/P (MAP) Pulse Ox O2 Delivery O2 Flow Rate FiO2 06/14/17 08:11 97.9 72 20 110/60 (77) 97 06/14/17 07:51 91 06/14/17 04:04 85 06/14/17 03:33 97.9 88 18 104/56 (72) 95 06/13/17 23:49 85 06/13/17 23:33 98.2 90 18 102/52 (69) 96 06/13/17 20:54 97 06/13/17 19:53 98.4 92 18 112/55 (74) 96 06/13/17 19:52 93 06/13/17 16:55 88 06/13/17 16:28 98.2 72 20 120/60 (80) 96 06/13/17 12:25 98.2 90 22 111/60 (77) 98 06/13/17 11:58 89 I/O 06/13/17 06/13/17 06/13/17 06/14/17 06/14/17 06/14/17 07:00 15:00 23:00 07:00 15:00 23:00 # Voids 3 5 # Bowel Movements 0 Result Diagram: 06/14/17 0810 06/13/17 0530 Objective Remarks Vital signs noted. Gen. appearance: Older woman who is delightful in conversation , makes excellent eye contact and normal affect. HEENT: Nonlocalizing. Neck: No bruits or thyromegaly. Lungs: Clear to auscultation diminished breath sounds at the bases, improved from yesterday's exam. Cardiac: S1-S2, no S3 or irregularities appreciated, there is a soft systolic murmur left sternal border. Abdomen: Soft, nontender, no apparent organomegaly or masses. Extremities: Intact pedal pulses, feet are warm and dry, there is no pedal edema. A/P Assessment and Plan 81-year-old female, past medical history of CAD status post stent placement, history of a positive nuclear stress test in the past admitted for further cardiac evaluation and consultation with patient's regular mussel farmer Dr. Quezada Case reviewed and discussed with the resident team. Agree with plan of care is discussed with me and documented in the resident note. Discharge Planning Pending pickup and home health today Problem List: (1) Anemia ICD Codes: D64.9 - Anemia, unspecified Status: Acute Plan: Hemoglobin 8.7 this morning, stable from 8.4 yesterday, from 11.1 in April Anemia of chronic disease versus acute anemia associated with GI bleed Continue iron and vitamin C (2) CAD (coronary artery disease) ICD Codes: I25.10 - Atherosclerotic heart disease of [place] coronary artery without angina pectoris Status: Acute Plan: Hx of CAD status post 2 stent placement, CABG, [place] Questionable hx of positive nuclear stress test ACS w/u negative on 06/11 Continue atorvastatin 40 daily Continue metoprolol 25 twice a day Continue RANJIT inhibitor Continue Aspirin (low likelihood of acute anemia/GI bleed) Per cardiology consult with private mussel farmer, follow-up with cardiology next week (3) COPD (chronic obstructive pulmonary disease) ICD Codes: J44.9 - Chronic obstructive pulmonary disease Status: Chronic Plan: COPD vs. Asthma vs. Pneumonia (likely bronchitis) vs. CHF? f/u PFTs Cont Duonebs q6h Cont Albuterol PRN BNP negative CBC normal f/u sputum cx Cont Azithromycin Cont diuretics: Lasix 20 PO daily w/ KCl 20meq daily Echo was canceled by mussel farmer, will do echo as outpatient 06/11, 06/12: No acute findings. Possible fluid overload, confirmed with radiologist manager professional development (4) Diabetes mellitus ICD Codes: E11.9 - Type 2 diabetes mellitus without complications Status: Chronic Plan: Hold Home meds Insulin sliding scale (5) FENGI/DVT Status: Acute Plan: Fluids: By mouth fluids Electrolytes: BMP normal, follow-up BMP in a.m. Nutrition: Regular diet GI prophylaxis: Not indicated VT prophylaxis: Lovenox 30 mg, possible history of renal failure Stephanie Johnson MD R2 Jun 14, 2017 09:26
[2017-06-14] MEDS: GABAPENTIN 300 MG CAP PO SCH (09:40)
[2017-06-14] MEDS: AZITHROMYCIN 250 MG TAB PO SCH (09:40)
[2017-06-14] MEDS: ASCORBIC ACID 500 MG TAB PO SCH (09:40)
[2017-06-14] MEDS: CLOPIDOGREL 75 MG TAB PO SCH (09:40)
[2017-06-14] MEDS: FERROUS SULFATE 325 MG (65 MG ELEMENTAL IRON) TAB PO SCH (09:40)
[2017-06-14] MEDS: ASPIRIN EC 325 MG TABEC PO SCH (09:42)
[2017-06-14] MEDS: SODIUM CHLORIDE 0.9% FLUSH 10 ML FLUSH IV FLUSH SCH (09:43)
[2017-06-14] MEDS: TIOTROPIUM BROMIDE 18 MCG INH INH SCH (09:43)
[2017-06-14] MEDS: METOPROLOL TARTRATE 25 MG TAB PO SCH (09:43)
[2017-06-14] MEDS: POTASSIUM CHLORIDE 20 MEQ CONTROLLED RELEASE TAB PO SCH (09:43)
[2017-06-14] MEDS: LISINOPRIL 5 MG TAB PO SCH (09:44)
[2017-06-14] MEDS: FUROSEMIDE 20 MG TAB PO SCH (09:44)
--- NOTE | 2017-06-15 08:00 | MB ---
cc: SANTHOSH ROWE M.D. DATE OF CONSULTATION: 06/13/2017. REASON FOR CONSULTATION: Chest pain. HISTORY OF PRESENT ILLNESS: This is an 81-year-old female who is well-known to me. She has a past medical history of coronary artery disease status post stenting in the past and hypertension. The patient started having chest pain. The pain felt like a sharp stabbing pain in the middle of the chest radiating to the left arm. She did not use nitroglycerin for the pain and decided to come to the emergency room. Workup included a 12-lead EKG which was normal. Three sets of cardiac enzymes came back normal. The patient became chest pain-free overnight. Currently she is chest pain-free. She denies otherwise unprovoked shortness of breath. She also denies paroxysmal nocturnal dyspnea, orthopnea, lower extremity edema. SOCIAL HISTORY: The patient is a nonsmoker and non-drinker. FAMILY HISTORY: Noncontributory. REVIEW OF SYSTEMS: HEAD, EYES, EARS, NOSE, THROAT: No complaints of lightheadedness or dizziness. CARDIOVASCULAR: History of coronary artery disease status post stenting and current chest pain. PULMONARY: There is history of COPD and asthma. She is on inhalers. GI: No history of GERD or GI bleed. : No history of . ENDOCRINE: Positive for hyperlipidemia and type 2 diabetes mellitus. The remainder of her review of systems is within normal limits. PHYSICAL EXAMINATION VITAL SIGNS: Showed blood pressure of 120/70 with a heart rate of 70, respiratory rate of 12. The patient is afebrile. NECK: The neck is supple with no jugular venous distension. CHEST: Clear to auscultation and percussion. HEART: S1 normal intensity. S2 single. Regular rate and rhythm. No S3 appreciated. ABDOMEN: Benign. EXTREMITIES: No edema, clubbing or cyanosis. IMPRESSION: 1. Chest pain of uncertain etiology. 2. History of coronary artery disease status post stenting. 3. Hypertension. 4. Hyperlipidemia. 5. Type 2 diabetes mellitus. RECOMMENDATIONS: The patient has been ruled out for myocardial infarction with serial troponins and EKGs. She is chest pain-free now. The patient always complains of chest pain off and on. She had a normal nuclear stress test in my office within the past two months. I will start her isosorbide 30 milligrams at bedtime just in case she has coronary spasm. I will see her in my office next week. If the patient continues to have chest pain, I would consider left heart catheterization. Thank you for this consultation. MD STEVE Vu/HOMA /9:59 AM /7:57 AM
== END 2017-06-14 11:24 | disposition home or self-care (01) | DRG 313 ==
LOC: NEPC 21:18 → NEDA 06-12 01:39 → NEDH 06-12 06:47 → NEPHCDU 06-12 15:29 → OBSVTOIN 06-12 17:46
PROVIDERS: ADMIT Family Medicine; ATTEND Family Medicine
DX: R07.9 Chest pain, unspecified (principal); J18.9 Pneumonia, unspecified organism; E11.22 Type 2 diabetes mellitus with diabetic chronic kidney disease; J44.0 Chronic obstructive pulmonary disease with (acute) lower respiratory infection; J98.11 Atelectasis; N18.9 Chronic kidney disease, unspecified; I12.9 Hypertensive chronic kidney disease with stage 1 through stage 4 chronic kidney disease, or unspecified chronic kidney disease; I25.2 Old myocardial infarction; D64.9 Anemia, unspecified; E78.5 Hyperlipidemia, unspecified; I25.10 Atherosclerotic heart disease of native coronary artery without angina pectoris; M19.041 Primary osteoarthritis, right hand; M19.042 Primary osteoarthritis, left hand; M17.12 Unilateral primary osteoarthritis, left knee; E04.1 Nontoxic single thyroid nodule; M81.0 Age-related osteoporosis without current pathological fracture; H91.90 Unspecified hearing loss, unspecified ear; F41.9 Anxiety disorder, unspecified; Z79.4 Long term (current) use of insulin; Z87.891 Personal history of nicotine dependence; Z88.5 Allergy status to narcotic agent; Z95.5 Presence of coronary angioplasty implant and graft
CPT/HCPCS: 71045; 71046; 74177; 80048; 80053; 80061; 82550; 82948; 83690; 83735; 83880; 84484; 85025; 85610; 85730; 87070; 87205; 93005; 94150; 94640; 94664; 96374; J1650; J1815; J1885; Q9963; Q9967

== ENCOUNTER 2017-06-22 02:11 | Emergency (ER) | payer MEDICARE, MEDICAID ==
[~2017-06-22] VITALS: Ht 160 cm; Wt 90.0 kg
[~2017-06-22 02:11] MED LIST changes: +ALBU0.08 NEB; -BLOOD GLUCOSE T1 TES; -CLOP75TA PO; +FERR325T20 PO; -WHEEMIS3; -lancets; -needles
[2017-06-22 02:14] VITALS: BP 114/60; PULSE 102; RESP 18; TEMP 98.6; O2SAT 97
[2017-06-22 03:05] LABS: AUTOMATED NEUTROPHIL # 7.3 TH/MM3 (1.8-7.7); BASOPHIL % 0.4 % (0.0-2.0); EOSINOPHIL # 0.1 TH/MM3 (0-0.4); EOSINOPHIL % 0.6 % (0.0-4.0); HEMATOCRIT 26.5 % (35.0-46.0); HEMOGLOBIN 8.9 GM/DL (11.6-15.3); LYMPH % 21.2 % (9.0-44.0); LYMPHOCYTE # 2.3 TH/MM3 (1.0-4.8); MEAN CELL VOLUME 84.4 FL (80.0-100.0); MEAN CORPUSCULAR HEMOGLOBIN 28.4 PG (27.0-34.0); MEAN CORPUSCULAR HGB CONC 33.6 % (32.0-36.0); MEAN PLATELET VOLUME 7.5 FL (7.0-11.0); MONO % 8.8 % (0.0-8.0); MONOCYTE # 0.9 TH/MM3 (0-0.9); PLATELET COUNT 378 TH/MM3 (150-450); RED BLOOD COUNT 3.14 MIL/MM3 (4.00-5.30); RED CELL DISTRIBUTION WIDTH 14.7 % (11.6-17.2); WHITE BLOOD COUNT 10.6 TH/MM3 (4.0-11.0)
[2017-06-22 03:15] LABS: BACTERIA, URINE RARE /hpf; BILIRUBIN, URINE NEG (NEG); BLOOD, URINE NEG (NEG); GLUCOSE,URINE NEG (NEG); HYALINE CAST, URINE 28 /lpf (RARE); KETONE, URINE NEG (NEG); MUCUS URINE MOD /lpf (OCC); NITRITE,URINE NEG (NEG); PH, URINE 5.5 (5.0-8.5); SQUAMOUS EPITHELIAL CELL URINE 2 /hpf (0-5); URINE COLOR YELLOW (YELLW/STRAW); URINE LEUKOCYTE ESTERASE TRACE (NEG)
[2017-06-22 03:23] LABS: ALT (GPT) 21 U/L (10-53); AST (GOT) 14 U/L (15-37); BICARBONATE 25.1 MEQ/L (21.0-32.0); BLOOD UREA NITROGEN 16 MG/DL (7-18); CALCIUM 8.5 MG/DL (8.5-10.1); CHLORIDE 106 MEQ/L (98-107); CREATININE 1.05 MG/DL (0.50-1.00); GLOMERULAR FILTRATION RATE 61 ML/MIN (>89); GLUCOSE,RANDOM 93 MG/DL (74-106); LIPASE 141 U/L (73-393); SODIUM (NA) 138 MEQ/L (136-145)
[2017-06-22 03:25] LABS: ALKALINE PHOSPHATASE 80 U/L (45-117); TOTAL BILIRUBIN ADULT 0.5 MG/DL (0.2-1.0); TOTAL PROTEIN 7.9 GM/DL (6.4-8.2)
[2017-06-22] MEDS ORDERED: ONDANSETRON HCL 4 MG/2 ML VIAL IV PUSH ONE (03:30)
[2017-06-22] MEDS ORDERED: HYDROmorphone HCL PF 1 MG/ML VIAL IV PUSH ONE (03:30)
[2017-06-22] MEDS ORDERED: SODIUM CHLORID 0.9% 500 ML INJ 500 ML IV ONE (03:30)
--- NOTE | 2017-06-22 03:32 | PD ---
HPI Chief Complaint: Abdominal Pain Time Seen by Provider: 03:20 Travel History International Travel<30 days: No Contact w/Intl Traveler<30days: No Traveled to known affect area: No History of Present Illness HPI 81-year-old female patient with history of OR, status post stenting, hypertension, COPD, presents to the ER today because of bilateral flank pain or radiation down to the lower abdomen which she currently states is a 10 out of 10. She vomited one time. She denies any diarrhea, fevers, or any other symptoms. Symptoms are worse with movements. Modifying Factors: Worse with movement Associated Signs & Symptoms: Bilateral flank pain with radiation down to the lower abdomen Risk Factors: None PFSH Past Medical History Hx Anticoagulant Therapy: Yes Arthritis: Yes (KNEE, BACK) Asthma: Yes Autoimmune Disease: No Blood Disorders: No Anxiety: No Depression: No Heart Rhythm Problems: No Cancer: No Cardiac Catheterization: Yes (stents x2) Cardiovascular Problems: Yes (htn/ current admit chest pain/high choletrol) High Cholesterol: Yes Chemotherapy: No Chest Pain: Yes Congestive Heart Failure: No COPD: No Cerebrovascular Accident: No Coronary Artery Disease: Yes Diabetes: Yes Patient Takes Glucophage: No Diminished Hearing: Yes ([place] LAGOON) Endocrine: Yes (diabetes) Gastrointestinal Disorders: Yes (APPENDECTOMY) GERD: No Glaucoma: No Genitourinary: No Headaches: No Hepatitis: No Hiatal Hernia: No Heparin Induced Thrombocytopen: No Hypertension: Yes Immune Disorder: No Implanted Vascular Access Dvce: No Kidney Stones: No Musculoskeletal: No Neurologic: No Psychiatric: No Reproductive: No Respiratory: Yes (asthma) Immunizations Current: Yes Migraines: Yes Myocardial Infarction: Yes Radiation Therapy: No Renal Failure: No Seizures: No Sickle Cell Disease: No Sleep Apnea: No Thyroid Disease: No Ulcer: No PNEUMOCCOCAL Vaccine (Year): 1 Menopausal: Yes : 11 Para: 8 Tubal Ligation: Yes Past Surgical History Abdominal Surgery: Yes (appendix 1955) AICD: No Appendectomy: Yes Arteriovenous Shunt: No Body Medical Devices: CARDIAC STENT Cardiac Surgery: Yes (2 x cardiac stents) Cholecystectomy: Yes Coronary Artery Bypass Graft: Yes Coronary Stent: Yes (x2) Ear Surgery: No Endocrine Surgery: No Eye Surgery: No Genitourinary Surgery: No Gynecologic Surgery: Yes Hysterectomy: Yes Insulin Pump: No Joint Replacement: No Neurologic Surgery: No Oral Surgery: No Pacemaker: No Thoracic Surgery: No Other Surgery: Yes (CYST OFF LEFT ARM 1998/ appendix 195) Family History Family Myocardial Infarction: Yes (mother) Social History Alcohol Use: No Tobacco Use: No Substance Use: No Allergies-Medications (Allergen,Severity, Reaction): Coded Allergies: tomato (Verified Allergy, Intermediate, FACIAL SWELLING, 06/22/17) morphine (Verified Allergy, Mild, Itching, 06/22/17) Reported Meds & Prescriptions Reported Meds & Active Scripts Active Albuterol Neb (Albuterol Sulfate) 2.5 Mg/3 Ml Neb 2.5 Mg NEB Q4HR NEB While awake Ferosul (Ferrous Sulfate) 325 Mg (65 Mg Iron) Tablet 325 Mg PO DAILY Lisinopril 2.5 Mg Tab 2.5 Mg PO DAILY Potassium Chloride ER (Potassium Chloride) 20 Meq Tab 20 Meq PO DAILY Azithromycin 250 Mg Tab 250 Mg PO DAILY Hydrocodone-Acetaminophen 5-325 mg Tab 1 Tab PO Q6H PRN Lantus Solostar Pen Inj (Insulin Glargine) 300 Unit/3 Ml Pen 35 Units SQ HS Atorvastatin (Atorvastatin Calcium) 40 Mg Tab 40 Mg PO HS Humalog Kwikpen Pen Inj (Insulin Lispro (Human) Inj) 300 Unit/3 Ml Pen 15 Units SQ BID Gabapentin 300 Mg Cap 300 Mg PO BID Vitamin D3 Adult Gummies (Cholecalciferol) 1,000 Unit Chew 2,000 Units CHEW DAILY Spiriva Handihaler (Tiotropium Inh) 18 Mcg Cap 18 Mcg INH DAILY 1 capsule = 18 mcg Metformin (Metformin HCl) 1,000 Mg Tab 1,000 Mg PO BIDPC With meals Aspirin 81 (Aspirin) 81 Mg Tabdr 81 Mg PO DAILY Proventil Hfa 6.7 GM Inh (Albuterol Sulfate) 90 Mcg/Act Aer 2 Puff INH Q4-6H PRN Lasix (Furosemide) 20 Mg Tab 20 Mg PO DAILY Metoprolol Tartrate 25 Mg Tab 25 Mg PO BID Magnesium Citrate Liq (Magnesium Citrate) 300 Ml Liq 300 Ml PO DIRECTED Review of Systems Except as stated in HPI: all other systems reviewed are Neg Physical Exam Narrative GENERAL: Well-developed elderly -Citizen Of [place] female patient currently in moderate distress. Awake and oriented 3. SKIN: Focused skin assessment warm/dry. HEAD: Atraumatic. Normocephalic. EYES: Pupils equal and round. No scleral icterus. No injection or drainage. ENT: No nasal bleeding or discharge. Mucous membranes pink and moist. NECK: Trachea midline. No JVD. CARDIOVASCULAR: Regular rate and rhythm. No murmur appreciated. RESPIRATORY: No accessory muscle use. Clear to auscultation. Breath sounds equal bilaterally. GASTROINTESTINAL: Abdomen soft, lower abdominal tenderness without guarding or rebound, nondistended. Hepatic and splenic margins not palpable. MUSCULOSKELETAL: No obvious deformities. No clubbing. No cyanosis. No edema. BACK: No CVA tenderness. No rash. Lower lumbar area midline tenderness without deformities. NEUROLOGICAL: Awake and alert. No obvious cranial nerve deficits. Motor grossly within normal limits. Normal speech. PSYCHIATRIC: Appropriate mood and affect; insight and judgment normal. Data Data Last Documented VS Vital Signs Date Time Temp Pulse Resp B/P (MAP) Pulse Ox O2 Delivery O2 Flow Rate FiO2 06/22/17 02:14 98.6 102 18 114/60 (78) 97 Room Air Orders Orders Complete Blood Count With Diff (06/22/17 02:43) Comprehensive Metabolic Panel (06/22/17 02:43) Urinalysis - C+S If Indicated (06/22/17 02:43) Iv Access Insert/Monitor (06/22/17 02:43) Oxygen Administration (06/22/17 02:43) Oximetry (06/22/17 02:43) Lipase (06/22/17 02:43) Ct Abd/Pel W Iv Contrast(Rout) (06/22/17 03:26) Lactic Acid (06/22/17 03:26) Sodium Chlorid 0.9% 500 Ml Inj (Ns 500 M (06/22/17 03:30) Ondansetron Inj (Zofran Inj) (06/22/17 03:30) Iohexol 350 Inj (Omnipaque 350 Inj) (06/22/17 04:07) Hydromorphone Pf Inj (Dilaudid Pf Inj) (06/22/17 04:30) Ed Discharge Order (06/22/17 04:57) Labs Laboratory Tests Test 06/22/17 02:45 06/22/17 03:50 White Blood Count 10.6 TH/MM3 Red Blood Count 3.14 MIL/MM3 Hemoglobin 8.9 GM/DL Hematocrit 26.5 % Mean Corpuscular Volume 84.4 FL Mean Corpuscular Hemoglobin 28.4 PG Mean Corpuscular Hemoglobin Concent 33.6 % Red Cell Distribution Width 14.7 % Platelet Count 378 TH/MM3 Mean Platelet Volume 7.5 FL Neutrophils (%) (Auto) 69.0 % Lymphocytes (%) (Auto) 21.2 % Monocytes (%) (Auto) 8.8 % Eosinophils (%) (Auto) 0.6 % Basophils (%) (Auto) 0.4 % Neutrophils # (Auto) 7.3 TH/MM3 Lymphocytes # (Auto) 2.3 TH/MM3 Monocytes # (Auto) 0.9 TH/MM3 Eosinophils # (Auto) 0.1 TH/MM3 Basophils # (Auto) 0.0 TH/MM3 CBC Comment DIFF FINAL Differential Comment Urine Color YELLOW Urine Turbidity CLEAR Urine pH 5.5 Urine Specific [place] 1.018 Urine Protein TRACE mg/dL Urine Glucose (UA) NEG mg/dL Urine Ketones NEG mg/dL Urine Occult Blood NEG Urine Nitrite NEG Urine Bilirubin NEG Urine Urobilinogen LESS THAN 2.0 MG/DL Urine Leukocyte Esterase TRACE Urine RBC 3 /hpf Urine WBC 1 /hpf Urine Squamous Epithelial Cells 2 /hpf Urine Bacteria RARE /hpf Urine Hyaline Casts 28 /lpf Urine Granular Casts 1 /lpf Urine Mucus MOD /lpf Microscopic Urinalysis Comment CULT NOT INDICATED Blood Urea Nitrogen 16 MG/DL Creatinine 1.05 MG/DL Random Glucose 93 MG/DL Total Protein 7.9 GM/DL Albumin 3.0 GM/DL Calcium Level 8.5 MG/DL Alkaline Phosphatase 80 U/L Aspartate Amino Transf (AST/SGOT) 14 U/L Alanine Aminotransferase (ALT/SGPT) 21 U/L Total Bilirubin 0.5 MG/DL Sodium Level 138 MEQ/L Potassium Level 4.0 MEQ/L Chloride Level 106 MEQ/L Carbon Dioxide Level 25.1 MEQ/L Anion Gap 7 MEQ/L Estimat Glomerular Filtration Rate 61 ML/MIN Lipase 141 U/L Lactic Acid Level 0.7 mmol/L [facility] Medical Decision Making Medical Screen Exam Complete: Yes Emergency Medical Condition: Yes Medical Record Reviewed: Yes Interpretation(s) Laboratory Tests Test 06/22/17 02:45 06/22/17 03:50 Red Blood Count 3.14 MIL/MM3 (4.00-5.30) Hemoglobin 8.9 GM/DL (11.6-15.3) Hematocrit 26.5 % (35.0-46.0) Monocytes (%) (Auto) 8.8 % (0.0-8.0) Urine Leukocyte Esterase TRACE (NEG) Urine Bacteria RARE /hpf (NONE) Urine Mucus MOD /lpf (OCC) Creatinine 1.05 MG/DL (0.50-1.00) Albumin 3.0 GM/DL (3.4-5.0) Aspartate Amino Transf (AST/SGOT) 14 U/L (15-37) Estimat Glomerular Filtration Rate 61 ML/MIN (>89) Last 24 hours Impressions Abdomen/Pelvis CT 06/22/17 0326 Signed Impressions: Service Date/Time: Thursday, June 22, 2017 04:03 - CONCLUSION: 1. 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 2. No acute findings within the abdomen and pelvis. Stable left adrenal nodule. Calcified granulomata in the liver. Gilbert Thibodeaux MD Differential Diagnosis Back pain with radiation to the abdomen: Renal colic versus gastroenteritis versus diverticulitis versus muscular skeletal Narrative Course Lab work is unremarkable. CAT scan did not show any signs of acute processes. She does have a pulmonary mass that is enlarging and needs to be evaluated further. I have talked her regarding this issue. She expresses to me that she has been having trouble walking at home, feels unsteady, and wanted to get rehabilitation for this issue. Home health care was ordered for the patient for evaluation into this issue. My plan at this point would be to treat her symptomatically for her back pain and abdominal discomfort and have her follow- up with primary care doctor. Return for any worsening in symptoms as needed. The plan has been discussed with her and she states understanding. Diagnosis Primary Impression: Pulmonary mass Additional Impressions: Abdominal pain Unsteady gait Med/Other Pt SpecificInfo: Prescription(s) given Scripts Tramadol (Tramadol) 50 Mg Tab 50 MG PO Q6H Y for PAIN, #12 TAB 0 Refills Prov: Noemi Blevins MD 06/22/17 Disposition: 01 DISCHARGE HOME Condition: Stable Noemi Blevins MD Jun 22, 2017 03:32
[2017-06-22] MEDS ORDERED: IOHEXOL 350 MG/ML 10 ML VIAL (for RAD DIAG) IVCONTRAST ONE (04:07)
[2017-06-22] MEDS ORDERED: HYDROmorphone HCL PF 2 MG/ML VIAL IV PUSH ONE (04:30)
--- NOTE | 2017-06-22 04:38 | RADRPT ---
EXAM DATE/TIME: 06/22/2017 04:03 [facility] COMPARISON: No previous studies available for comparison. INDICATIONS : Bilateral low abdominal pain. IV CONTRAST: 83 cc Omnipaque 350 (iohexol) IV ORAL CONTRAST: No oral contrast ingested. RADIATION DOSE: 14.57 CTDIvol (mGy) MEDICAL HISTORY : Myocardial infarction. Cardiovascular disease Diabetes mellitus type 2.Hypertension SURGICAL HISTORY : CABG Appendectomy.Hysterectomy. ENCOUNTER: Initial ACUITY: 1 day PAIN SCALE: 7/10 LOCATION: Bilateral lower quadrant abdomen TECHNIQUE: Volumetric scanning of the abdomen and pelvis was performed. Using automated exposure control and ad justment of the mA and/or kV according to patient size, radiation dose was kept as low as reasonably achievable to obtain optimal diagnostic quality images. DICOM format image data is available electro nically for review and comparison. FINDINGS: There is a rounded focal airspace disease in the right lower lobe measuring about 2 cm in diameter, i ncreased from 14 mm in diameter and June 2015. This is most characteristic of a low-grade maligna ncy, possibly adenocarcinoma in situ. Moderate coronary calcifications. No acute findings in the liver, spleen, adrenals, kidneys or pancre as. Nonobstructing 4 mm calculus lower pole left kidney. Right kidney unremarkable. Stable left adren al nodule measuring up to about 1.5 cm since June 2015. No pelvic masses or free fluid. No adenopathy. CONCLUSION: 1. 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 2. No acute findings within the abdomen and pelvis. Stable left adrenal nodule. Calcified granulomata in the liver. Gilbert Thibodeaux MD on June 22, 2017 at 4:29 Board Certified Radiologist. This report was verified electronically.
--- NOTE | 2017-06-22 05:04 | HHI.FF ---
Face to Face Verification Diagnosis: (1) Unsteady gait Physical Therapy Order: Evaluate and Treat, Strength and gait training Customer Liaison Order: To Evaluate: Support services Order: To Provide: Long range planning I have seen patient Rachel Cao on 06/22/17. My clinical findings support the need for the requested home health care services because: Ltd mobility - disease progression Limited ability to care for self High risk of falls I certify that my clinical findings support that this patient is homebound because: Unsteady gait/balance Noemi Blevins MD Jun 22, 2017 05:04
[2017-06-22] MEDS ORDERED: TRAM50TA PO (05:07)
--- NOTE | 2017-06-22 19:18 | EKG ---
Date Performed: 06/22/2017 Time Performed: 02:51:14 PTAGE: 81 years EKG: Sinus rhythm LEFT ANTERIOR FASCICULAR BLOCK MODERATE VOLTAGE CRITERIA FOR LVH, CONSIDER NORMAL VARIANT Since prev ious tracing, no significant change noted ABNORMAL ECG PREVIOUS TRACING : 06/12/2017 08.23 DOCTOR: Shashank Thomas Interpretating Date/Time 06/22/2017 19:16:41
== END 2017-06-22 06:57 | disposition home or self-care (01) ==
LOC: NEPE 02:11
DX: R91.8 Other nonspecific abnormal finding of lung field (principal); R10.9 Unspecified abdominal pain; R26.81 Unsteadiness on feet; E78.00 Pure hypercholesterolemia, unspecified; I25.10 Atherosclerotic heart disease of native coronary artery without angina pectoris; I10 Essential (primary) hypertension; E11.9 Type 2 diabetes mellitus without complications; I25.2 Old myocardial infarction; Z95.5 Presence of coronary angioplasty implant and graft; Z95.1 Presence of aortocoronary bypass graft; Z79.82 Long term (current) use of aspirin; Z79.84 Long term (current) use of oral hypoglycemic drugs
CPT/HCPCS: 74177; 80053; 81001; 83605; 83690; 85025; 93005; 96361; 96374; 99285; J1170; J2405; J7040; Q9967

== ENCOUNTER 2018-05-06 07:59 | Observation (INO) ==
--- NOTE | 2018-05-06 08:50 | ED ---
HPI General Chief complaint: Extremity Problem,Nontraumatic Stated complaint: Left Leg Complaint Time Seen by Provider: 05/06/18 08:15 Source: patient, family and RN notes reviewed Mode of arrival: ambulatory History of Present Illness HPI narrative: 82yF presenting with left leg pain. The patient states that she woke up around 3 AM with sudden-onset left lower extremity pain which radiates from the hip to her toes, "burning", not made better or worse with anything, associated with urinary incontinence and difficulty ambulating. Denies history of back pain, trauma, fever or chills, bowel incontinence, saddle anesthesia, or lower extremity numbness/ tingling/ weakness. Related Data Home Medications Medication Instructions Recorded Confirmed Tessalon Perles 100 mg PO TID PRN 05/06/18 05/06/18 albuterol sulfate 2.5 mg INHALATION TID PRN 05/06/18 05/06/18 albuterol sulfate [Proventil HFA] 1 puff INHALATION Q4-6H PRN 05/06/18 05/06/18 aspirin [Aspir-81] 81 mg PO HS 05/06/18 05/06/18 atorvastatin 40 mg PO QPM 05/06/18 05/06/18 clopidogrel 75 mg PO DAILY 05/06/18 05/06/18 ferrous fumarate 325 mg PO DAILY 05/06/18 05/06/18 furosemide 20 mg PO DAILY 05/06/18 05/06/18 gabapentin 300 mg PO TID 05/06/18 05/06/18 hydrocodone-acetaminophen 1 tab PO Q6H 05/06/18 05/06/18 insulin glargine [Lantus Solostar 30 unit SUBCUT HS 05/06/18 05/06/18 U-100 Insulin] insulin lispro [Humalog U-100 SUBCUT BID 05/06/18 Insulin] isosorbide mononitrate 30 mg PO HS 05/06/18 05/06/18 lisinopril 2.5 mg PO DAILY 05/06/18 05/06/18 metformin 1,000 mg PO BID 05/06/18 05/06/18 metoprolol tartrate 25 mg PO BID 05/06/18 05/06/18 multivitamin [Multiple Vitamins] 1 tab PO DAILY 05/06/18 05/06/18 potassium chloride 20 meq PO DAILY 05/06/18 05/06/18 Allergies Allergy/AdvReac Type Severity Reaction Status Date / Time tomato Allergy Intermediate FACIAL Verified 05/06/18 08:11 SWELLING morphine Allergy Mild Itching Verified 05/06/18 08:11 Review of Systems ROS: all other systems reviewed are negative Constitutional Denies fever(s) Cardiovascular Denies chest pain Respiratory Denies cough Gastrointestinal Denies nausea Genitourinary Denies dysuria and Reports urinary incontinence Neurologic Denies confusion Psychiatric Denies confusion PMFSH History History Provided By: Patient Medical History Medical History Asthma (Acute) Carpal tunnel syndrome (Acute) Diabetes (Acute) Hard of hearing (Acute) Lung mass (Acute) Surgical History Surgical History H/O eye surgery (Acute) History of heart artery stent (Acute) Hx of appendectomy (Acute) H/O removal of cyst (Acute) Hx of cholecystectomy (Acute) Social History Social History Substance History: No History of Abuse Second Hand Smoke Exposure: No Smoking Status: Former smoker How Often Do You Have a Drink Containing Alcohol: Never Recent Travel in [facility] within the Last 8 Weeks: No Recent Out of Country Travel within the Last 8 Weeks: No Immunization History Tetanus Immunization: Unsure Exam Const General: healthy appearing and no acute distress HENMT Face and sinus: normal facial exam Eyes General: appearance normal, both eyes and all related structures Chest Chest: normal inspection of the chest Resp Effort & Inspection: normal respiratory effort Auscultation: no rhonchi and no wheezes Cardio Rate: regular rate Rhythm: regular rhythm GI Inspection: non-distended Palpation: soft and nontender Skin General: no rashes or lesions noted Neuro General: alert, awake and oriented x3 Other: Motor strength 5/5 in right-sided hip and knee flexion/ extension, plantar and dorsiflexion Strength 4/5 in left-sided hip flexion/ extension, plantar and dorsiflexion, only able to hold LLE up against gravity for 1-2 seconds Strength 5/5 in bilateral upper extremities No foot drop bilaterally Sensation intact to bilateral lower extremities Psych Affect: normal affect Course Initial Documented Vital Signs Temperature 99.1 F 05/06/18 08:02 Pulse Rate 89 05/06/18 08:02 Respiratory Rate 22 05/06/18 08:02 Blood Pressure 139/64 05/06/18 08:02 Pulse Oximetry 99 05/06/18 08:02 Last Documented Vital Signs Temperature 99.1 F 05/06/18 08:02 Pulse Rate 82 05/06/18 11:13 Respiratory Rate 20 05/06/18 11:13 Blood Pressure 120/63 05/06/18 11:13 Pulse Oximetry 98 05/06/18 11:13 Medical Decision Making MDM Narrative Medical decision making narrative: Assessment: 82yF presenting with LLE weakness and pain Plan: Pain control Basic labs UA MRI lumbar spine Addendum: Patient given percocet and solumedrol, unable to ambulate with max assistance secondary to LLE weakness. MRI shows central lumbar canal stenosis but no evidence of cauda equina/ conus medullaris or other neurosurgical emergency. Case discussed with Dr. Dockery of [facility], patient to stay for observation/ pain control/ PT eval. Patient understands and agrees with plan. Medical Screen Exam Complete: Yes Emergency Medical Condition: Yes Differential Diagnosis Differential Diagnosis: Differential diagnosis includes, but is not limited to: neuropathy, disc herniation, cauda equina, conus medullaris, radiculopathy Lab Data Lab results reviewed: Yes I reviewed the patient's lab results. Result diagrams: 05/06/18 08:33 05/06/18 08:33 Lab Results 05/06/18 05/06/18 05/06/18 Range/Units 08:33 08:33 11:20 WBC 8.7 (4.0-11.0) th/mm3 RBC 3.62 L (4.00-5.30) mil/mm3 Hgb 11.0 L (11.6-15.3) gm/dL Hct 33.2 L (35.0-46.0) % MCV 91.7 (80.0-100.0) fL MCH 30.4 (27.0-34.0) pg MCHC 33.2 (32.0-36.0) % RDW 14.1 (11.6-17.2) % Plt Count 216 (150-450) th/mm3 MPV 8.8 (7.0-11.0) fL Neut % (Auto) 70.6 H (16.0-70.0) % Lymph % (Auto) 17.4 (9.0-44.0) % [place] % (Auto) 10.1 H (0.0-8.0) % Eos % (Auto) 1.2 (0.0-4.0) % Baso % (Auto) 0.7 (0.0-2.0) % Neut # (Auto) 6.2 (1.8-7.7) th/mm3 Lymph # (Auto) 1.5 (1.0-4.8) th/mm3 [place] # (Auto) 0.9 (0.0-0.9) th/mm3 Eos # (Auto) 0.1 (0.0-0.4) th/mm3 Baso # (Auto) 0.1 (0.0-0.2) th/mm3 WBC Differential . Differential Comment Auto diff final Sodium 143 (136-145) meq/L Potassium 4.7 (3.5-5.1) meq/L Chloride 107 (98-107) meq/L Carbon Dioxide 24.3 (21.0-32.0) meq/L Anion Gap 12 (5-15) meq/L BUN 20 H (7-18) mg/dL Creatinine 1.18 H (0.50-1.00) mg/dL Estimated GFR 53 L (>89) mL/min Random Glucose 110 H (74-106) mg/dL Calcium 8.9 (8.5-10.1) mg/dL Urine Color Yellow (Yellw/Straw) Urine Clarity Clear (Clear) Urine pH 6.0 (5.0-8.5) Ur Specific [place] 1.018 (1.002-1.035) Urine Protein Negative (Neg-Trace) mg/dL Urine Glucose (UA) Negative (Negative) mg/dL Urine Ketones Negative (Negative) mg/dL Urine Occult Blood Negative (Negative) Urine Nitrate Negative (Negative) Urine Bilirubin Negative (Negative) Urine Urobilinogen Less than 2 (Less than 2) mg/dL Ur Leukocyte Esterase Negative (Negative) Urine RBC Less than 1 (0-3) /hpf Urine WBC 1 (0-5) /hpf Ur Squamous Epith Cells 2 (0-5) /hpf Urine Mucus Few H (Occasional) /lpf Micro UA Comment Culture not ind Ur Microscopic Review Not Reportable Urine Culture Comments Culture not ind Imaging Data Radiologist's impression: Lumbar Spine MRI 05/06/18 08:25 CONCLUSION: 1. Severe central canal stenosis at the L4-5 level secondary to grade 1 anterior spondylolisthesis, disc bulge and degenerative change involving the facet joints. 2. Moderate to severe central canal stenosis at L3-4 secondary to disc bulge and degenerative change involving the facets. 3. Milder disc bulges at the L1-2, L2-3 and L5-S1 levels. 4. Borderline foraminal stenosis bilaterally at L4-5. There is mild narrowing at the L1-2, L2-3 and L3-4 levels. Discharge Plan Discharge Disposition Patient Disposition: ED Admit(ED Internal Use Only) Discharge Condition Condition: Stable Discharge Order Discharge Orders: ED Use Only Admit Order (Routine); Ordered 05/06/18 Ordered By: Vira Brown Discharge Details Diagnosis: Left sided sciatica, Unable to ambulate Physicians Team ED Provider: Vira Brown Primary Care Provider: Brock Dela Cruz Rxs /Orders / Referrals /Forms Prescriptions: No Action metformin 1,000 mg Tablet 1,000 mg PO BID RF: 0 multivitamin [Multiple Vitamins] Tablet 1 tab PO DAILY RF: 0 atorvastatin 40 mg Tablet 40 mg PO QPM RF: 0 albuterol sulfate 2.5 mg /3 mL (0.083 %) Solution For Nebulization 2.5 mg INHALATION TID PRN (Reason: Shortness Of Breath Or Wheezing) RF: 0 hydrocodone-acetaminophen 5-325 mg Tablet 1 tab PO Q6H RF: 0 isosorbide mononitrate 30 mg Tablet Extended Release 24 Hr 30 mg PO HS RF: 0 clopidogrel 75 mg Tablet 75 mg PO DAILY RF: 0 aspirin [Aspir-81] 81 mg Tablet,Delayed Release (Dr/Ec) 81 mg PO HS RF: 0 gabapentin 300 mg Capsule 300 mg PO TID RF: 0 furosemide 20 mg Tablet 20 mg PO DAILY RF: 0 albuterol sulfate [Proventil HFA] 90 mcg/actuation Hfa Aerosol Inhaler 1 puff INHALATION Q4-6H PRN (Reason: Shortness Of Breath Or Wheezing) RF: 0 lisinopril 2.5 mg Tablet 2.5 mg PO DAILY RF: 0 insulin lispro [Humalog U-100 Insulin] 100 unit/mL Cartridge subcut BID RF: 0 metoprolol tartrate 25 mg Tablet 25 mg PO BID RF: 0 insulin glargine [Lantus Solostar U-100 Insulin] 100 unit/mL (3 mL) Insulin Pen 30 unit SUBCUT HS RF: 0 ferrous fumarate 325 mg (106 mg iron) Tablet 325 mg PO DAILY RF: 0 potassium chloride 20 mEq Tablet Extended Release 20 meq PO DAILY RF: 0 Tessalon Perles 100 mg PO TID PRN (Reason: Cough) RF: 0 Discharge Interventions Interventions: Vital Signs Last Done: 05/06/18 11:13 Status ED Status: Admitted Observation Patient
[2018-05-06 08:53] LABS: Baso # (Auto) 0.1 th/mm3 (0.0-0.2); Baso % (Auto) 0.7 % (0.0-2.0); Eos # (Auto) 0.1 th/mm3 (0.0-0.4); Eos % (Auto) 1.2 % (0.0-4.0); Hematocrit 33.2 % (35.0-46.0); Lymph # (Auto) 1.5 th/mm3 (1.0-4.8); Lymph % (Auto) 17.4 % (9.0-44.0); Mean Corpuscular HGB Conc 33.2 % (32.0-36.0); Mean Corpuscular Hemoglobin 30.4 pg (27.0-34.0); Mean Corpuscular Volume 91.7 fL (80.0-100.0); Mean Platelet Volume 8.8 fL (7.0-11.0); Mono # (Auto) 0.9 th/mm3 (0.0-0.9); Mono % (Auto) 10.1 % (0.0-8.0); Neut # (Auto) 6.2 th/mm3 (1.8-7.7); Neut % (Auto) 70.6 % (16.0-70.0); Platelet Count 216 th/mm3 (150-450); Red Blood Count 3.62 mil/mm3 (4.00-5.30); Red Cell Distribution Width 14.1 % (11.6-17.2); White Blood Count 8.7 th/mm3 (4.0-11.0)
[2018-05-06 09:17] LABS: Calcium 8.9 mg/dL (8.5-10.1); Carbon Dioxide 24.3 meq/L (21.0-32.0)
[2018-05-06 10:11] LABS: Potassium 4.7 meq/L (3.5-5.1)
--- NOTE | 2018-05-06 10:16 | MR ---
EXAM DATE: 05/06/2018 10:01 AM EST AGE/SEX: 82 years / Female INDICATIONS: Lower back pain and burning sensation extending down the left leg. CLINICAL DATA: This is the patient's subsequent encounter. Patient reports that signs and symptoms h ave been present for 2 days and indicates a pain score of 7/10. MEDICAL/SURGICAL HISTORY: Diabetes mellitus type II. asthma Appendectomy. Cholecystectomy. ca taract surgery, left wrist cyst removed, cardiac stents COMPARISON: No prior exams available for comparison. TECHNIQUE: Multiplanar, multisequence MRI of the lumbar spine was performed without contrast. Patie nt was scanned in a sitting position; neutral, flexion, and extension scans were performed in the sa gittal plane. FINDINGS: Vertebra: Homogeneous signal. There is a mild grade 1 anterospondylolisthesis of L4 on L5 of approxi mately 5 mm. There is a minimal grade 1 anterior spondylolisthesis of L3 on L4 of approximately 2 mm. There is a mild scoliosis.. Discs: There is mild desiccation. The disc spaces are fairly well-preserved. Conus: Normal level and configuration. T12-L1: The thecal sac has a normal diameter. No evidence of disc bulge or protrusion. The neural foramina are patent bilaterally. L1-L2: There is a mild annular disc bulge with minimal flattening of the anterior thecal sac and no focal lesion. There is mild narrowing of the neural foramina. Degenerative change are present involv ing facet joints with hypertrophy of the ligamentum flavum. L2-L3: There is a mild annular disc bulge with mild flattening of the anterior thecal sac and narro wing the neural foramina. There is no focal protrusion. There are degenerative changes involving the facet joints with hypertrophy of the ligamentum flavum. L3-L4: There is a mild to moderate size annular disc bulge with flattening of the anterior thecal s ac and no focal protrusion. There is narrowing of the neural foramina bilaterally. There are degenera tive changes involving the facet joints with hypertrophic change with moderate to severe central anton l stenosis. The residual AP diameter of the canal measures approximately 1 cm in the residual mid tra nsverse diameter measures approximately 4 to 5 mm. L4-L5: Grade 1 anterior spondylolisthesis with annular disc bulge with flattening of the anterior t hecal sac and narrowing of the neural foramina bilaterally with foraminal stenosis. Degenerative stringer ges are noted involving the facet joints with hypertrophy of the ligamentum flavum. There is severe c entral canal stenosis with the residual AP diameter of the canal measuring 7 to 8 mm and the residual mid transverse diameter measuring 4 to 5 mm. L5-S1: There is a mild annular disc bulge with mild flattening the anterior thecal sac. The neural foramina are patent. There are degenerative change involving the facet joints. CONCLUSION: 1. Severe central canal stenosis at the L4-5 level secondary to grade 1 anterior spondylolisthesis, disc bulge and degenerative change involving the facet joints. 2. Moderate to severe central canal stenosis at L3-4 secondary to disc bulge and degenerative change involving the facets. 3. Milder disc bulges at the L1-2, L2-3 and L5-S1 levels. 4. Borderline foraminal stenosis bilaterally at L4-5. There is mild narrowing at the L1-2, L2-3 and L3-4 levels. Electronically signed by: Brock Mandujano MD 05/06/2018 10:14 AM EST
[2018-05-06] MEDS ORDERED: MethylPREDNISolone Sod Succinate Inj 125 MG/2 ML Vial IV.PUSH ONE (10:22)
[2018-05-06 12:00] LABS: Bilirubin,Urine Negative (Negative); Clarity,Urine Clear (Clear); Color,Urine Yellow (Yellw/Straw); Glucose,Urine (UA) Negative (Negative); Leukocyte Esterase,Urine Negative (Negative); Mucus,Urine Few /lpf (Occasional); Nitrite,Urine Negative (Negative); Specific Gravity,Urine 1.018 (1.002-1.035); Squamous Epithelial Cell,Urine 2 /hpf (0-5)
[2018-05-06] MEDS ORDERED: Acetaminophen 325 MG Tablet PO PRN (13:20)
[2018-05-06] MEDS ORDERED: Bisacodyl 10 MG Supp RECTAL PRN (13:20)
[2018-05-06] MEDS ORDERED: Dextrose 50% in Water 50 ML Vial IV.PUSH PRN (13:25)
[2018-05-06] MEDS ORDERED: Naloxone Inj 0.4 MG/ML Vial IV.PUSH PRN (13:29)
--- NOTE | 2018-05-06 14:17 | P.HPIM ---
History of Present Illness Primary Care Physician: Brock Dela Cruz MD Chief Complaint: Left leg pain History of Present Illness: This is a 82-year-old female with a history of asthma, hyperlipidemia, diabetes mellitus, coronary artery disease status post stent, chronic kidney disease stage III and recently diagnosed lung mass. She presents to the emergency department because of left leg pain for the past week. She describes a constant burning pain from her knee down to her foot no precipitating or alleviating factors. Denies recent trauma, back pain, urinary or stool incontinence. No history of DVT. Lumbar spine MRI shows severe central canal stenosis at the L4-L5 level secondary to grade 1 anterior spondylolisthesis. Moderate to severe central's canal stenosis at L3-4. ER physician recommended hospitalization for further evaluation and treatment as patient not able to ambulate. All other systems reviewed negative Review of Systems Review of Systems: all other systems reviewed are negative [facility] Medical History Medical History Asthma (Acute) Carpal tunnel syndrome (Acute) Diabetes (Acute) Hard of hearing (Acute) Lung mass (Acute) Surgical History Surgical History H/O eye surgery (Acute) History of heart artery stent (Acute) Hx of appendectomy (Acute) H/O removal of cyst (Acute) Hx of cholecystectomy (Acute) Family History Family History Other Diabetes mellitus Social History Social History Substance History: No History of Abuse Second Hand Smoke Exposure: No Smoking Status: Former smoker How Often Do You Have a Drink Containing Alcohol: Never Recent Travel in [facility] within the Last 8 Weeks: No Recent Out of Country Travel within the Last 8 Weeks: No Immunization History Tetanus Immunization: Unsure Medications and Allergies Allergies Allergy/AdvReac Type Severity Reaction Status Date / Time tomato Allergy Intermediate FACIAL Verified 05/06/18 08:11 SWELLING morphine Allergy Mild Itching Verified 05/06/18 08:11 Home Medications Medication Instructions Recorded Confirmed Type Tessalon Perles 100 mg PO TID PRN 05/06/18 05/06/18 History albuterol sulfate 2.5 mg INHALATION TID PRN 05/06/18 05/06/18 History albuterol sulfate [Proventil HFA] 1 puff INHALATION Q4-6H PRN 05/06/18 05/06/18 History aspirin [Aspir-81] 81 mg PO HS 05/06/18 05/06/18 History atorvastatin 40 mg PO QPM 05/06/18 05/06/18 History clopidogrel 75 mg PO DAILY 05/06/18 05/06/18 History ferrous fumarate 325 mg PO DAILY 05/06/18 05/06/18 History furosemide 20 mg PO DAILY 05/06/18 05/06/18 History gabapentin 300 mg PO TID 05/06/18 05/06/18 History hydrocodone-acetaminophen 1 tab PO Q6H 05/06/18 05/06/18 History insulin glargine [Lantus Solostar 30 unit SUBCUT HS 05/06/18 05/06/18 History U-100 Insulin] insulin lispro [Humalog U-100 See Label Instructions .ROUTE 05/06/18 05/06/18 History Insulin] .COMPLEX isosorbide mononitrate 30 mg PO HS 05/06/18 05/06/18 History lisinopril 2.5 mg PO DAILY 05/06/18 05/06/18 History metformin 1,000 mg PO BID 05/06/18 05/06/18 History metoprolol tartrate 25 mg PO BID 05/06/18 05/06/18 History multivitamin [Multiple Vitamins] 1 tab PO DAILY 05/06/18 05/06/18 History potassium chloride 20 meq PO DAILY 05/06/18 05/06/18 History Active Medications: Active Medications Acetaminophen (Tylenol) 650 mg PO Q4H PRN PRN Reason: Temp > 100.4 Hydrocodone Bitart/Acetaminophen ([place] 5/325) 1 tab PO Q6H [facility] Albuterol (Albuterol Neb (Prn)) 2.5 mg NEB TID NEB PRN PRN Reason: Shortness Of Breath Or Wheezing Aspirin (Ecotrin) 81 mg PO HS [facility] Atorvastatin Calcium (Lipitor) 40 mg PO QPM [facility] Benzonatate (Tessalon Perles) 100 mg PO TID PRN PRN Reason: COUGH Bisacodyl (Dulcolax Supp) 10 mg RECTAL DAILY PRN PRN Reason: SEVERE CONSITIPATION Clopidogrel Bisulfate (Plavix) 75 mg PO DAILY [facility] Dextrose (D50w Vial) 50 ml IV.PUSH UNSCH PRN PRN Reason: PER HYPOGLYCEMIA PROTOCOL Ferrous Fumarate (Hemocyte) 324 mg PO DAILY [facility] Furosemide (Lasix) 20 mg PO DAILY [facility] Gabapentin (Neurontin) 300 mg PO TID [facility] Glucagon (Glucagon Inj) 1 mg OTHER PRN PRN PRN Reason: for Hypoglycemia Protocol Heparin Sodium (Porcine) (Heparin Inj) 5,000 units SQ Q8H [facility] Sodium Chloride (Ns Inj) 1,000 mls @ 84 mls/hr IV.CONT .[id number] [facility] Insulin Aspart (Novolog Insulin Correctional Sugar Inj) 0 unit SQ ACHS [facility]; Protocol Insulin Detemir (Levemir Inj) 30 unit SQ HS [facility] Isosorbide Mononitrate (Imdur) 30 mg PO HS [facility] Lactulose (Lactulose Liq) 30 ml PO DAILY PRN PRN Reason: SEVERE CONSITIPATION Metoprolol Tartrate (Lopressor) 25 mg PO BID [facility] Naloxone HCl (Narcan Inj) 0.4 mg IV.PUSH UNSCH PRN PRN Reason: SEE LABEL COMMENTS Ondansetron HCl (Zofran Inj) 4 mg IV.PUSH Q6H PRN PRN Reason: NAUSEA OR VOMITING Oxycodone HCl (Roxicodone) 5 mg PO Q4H PRN PRN Reason: PAIN SCALE 3 TO 5 Oxycodone HCl (Roxicodone) 10 mg PO Q4H PRN PRN Reason: PAIN SCALE 6 TO 10 Senna/Docusate Sodium (Gia-Colace) 1 tab PO BID [facility] Sennosides (Senokot) 17.2 mg PO Q12H PRN PRN Reason: Moderate Constipation Sodium Chloride (Ns Flush) 2 ml IV.FLUSH BID [facility] Sodium Chloride (Ns Flush) 2 ml IV.FLUSH PRN PRN PRN Reason: FLUSH AFTER USING IV ACCESS Physical Exam Vital signs: Last Vital Signs Temp 99.1 F 05/06/18 08:02 Pulse 82 05/06/18 11:13 Resp 20 05/06/18 11:13 BP 120/63 05/06/18 11:13 Pulse Ox 98 05/06/18 11:13 Intake & Output 05/04/18 05/05/18 05/06/18 05/07/18 06:59 06:59 06:59 06:59 Weight 86.183 kg Narrative: GENERAL: Well-developed, obese in no distress SKIN: Warm and dry. HEAD: Atraumatic. Normocephalic. EYES: Pupils equal and round. No scleral icterus. No injection or drainage. ENT: No nasal bleeding or discharge. Mucous membranes pink and moist. NECK: Trachea midline. No JVD. CARDIOVASCULAR: Regular rate and rhythm. RESPIRATORY: No accessory muscle use. Clear to auscultation. Breath sounds equal bilaterally. GASTROINTESTINAL: Abdomen soft, non-tender, nondistended. MUSCULOSKELETAL: Extremities without clubbing, cyanosis but with left lower extremity pitting edema. No obvious deformities. NEUROLOGICAL: Awake and alert. No obvious cranial nerve deficits. Slightly weak on the left lower extremity. Normal speech. PSYCHIATRIC: Appropriate mood and affect; insight and judgment normal. Results Labs CBC & Chem 7: 05/06/18 08:33 05/06/18 08:33 Imaging Impressions Lumbar Spine MRI 05/06/18 08:25 CONCLUSION: 1. Severe central canal stenosis at the L4-5 level secondary to grade 1 anterior spondylolisthesis, disc bulge and degenerative change involving the facet joints. 2. Moderate to severe central canal stenosis at L3-4 secondary to disc bulge and degenerative change involving the facets. 3. Milder disc bulges at the L1-2, L2-3 and L5-S1 levels. 4. Borderline foraminal stenosis bilaterally at L4-5. There is mild narrowing at the L1-2, L2-3 and L3-4 levels. Caprini VTE Risk Assessment Caprini VTE Risk Assessment: Moderate/High Risk (score >= 2) Caprini Risk Assessment Model: Point Value = 1 Point Value = 2 Point Value = 3 Point Value = 5 Age 41-60 Minor surgery BMI > 25 kg/m2 Swollen legs Varicose veins or History of unexplained or recurrent spontaneous Oral contraceptives or hormone replacement Sepsis (< 1 month) Serious lung disease, including pneumonia (< 1 month) Abnormal pulmonary function Acute myocardial infarction Congestive heart failure (< 1 month) History of inflammatory bowel disease Medical patient at bed rest Age 61-74 Arthroscopic surgery Major open surgery (> 45 min) Laparoscopic surgery (> 45 min) Malignancy Confined to bed (> 72 hours) Immobilizing plaster cast Central venous access Age >= 75 History of VTE Family history of VTE Factor V Leiden Prothrombin [id number] Lupus anticoagulant Anticardiolipin antibodies Elevated serum homocysteine Heparin-induced thrombocytopenia Other congenital or acquired thrombophilia Stroke (< 1 month) Elective arthroplasty Hip, pelvis, or leg fracture Acute spinal cord injury (< 1 month) Prophylaxis Regimen: Total Risk Factor Score Risk Level Prophylaxis Regimen 0-1 Low Early ambulation 2 Moderate Order ONE of the following: *Sequential Compression Device (SCD) *Heparin 5000 units SQ BID 3-4 Higher Order ONE of the following medications: *Heparin 5000 units SQ TID *Enoxaparin/Lovenox 40 mg SQ daily (WT < 150 kg, CrCl > 30 mL/min) *Enoxaparin/Lovenox 30 mg SQ daily (WT < 150 kg, CrCl > 10-29 mL/min) *Enoxaparin/Lovenox 30 mg SQ BID (WT < 150 kg, CrCl > 30 mL/min) AND/OR *Sequential Compression Device (SCD) 5 or more Highest Order ONE of the following medications: *Heparin 5000 units SQ TID (Preferred with Epidurals) *Enoxaparin/Lovenox 40 mg SQ daily (WT < 150 kg, CrCl > 30 mL/min) *Enoxaparin/Lovenox 30 mg SQ daily (WT < 150 kg, CrCl > 10-29 mL/min) *Enoxaparin/Lovenox 30 mg SQ BID (WT < 150 kg, CrCl > 30 mL/min) AND *Sequential Compression Device (SCD) Assessment and Plan Plan This is a 82-year-old female with a history of asthma, hyperlipidemia, diabetes mellitus, coronary artery disease status post stent, chronic kidney disease stage III and recently diagnosed lung mass. She presents to the emergency department because of left leg pain for the past week. She describes a constant burning pain from her knee down to her foot no precipitating or alleviating factors. Denies recent trauma, back pain, urinary or stool incontinence. No history of DVT. Lumbar spine MRI shows severe central canal stenosis at the L4-L5 level secondary to grade 1 anterior spondylolisthesis. Moderate to severe central's canal stenosis at L3-4. Left lower extremity pain with inability to ambulate. Need to check for DVT will obtain Doppler sonogram. Pain management will resume home Lortab and provide oxycodone as needed. Continue Neurontin may need tramadol. Counseled regarding narcotics. Consult physical therapy Abnormal lumbar spine MRI with central canal stenosis but no evidence of cauda equina. Patient denies back pain. DVT prophylaxis with subcu heparin and early ambulation Possible discharge in 1-2 days
--- NOTE | 2018-05-06 15:09 | US ---
EXAM DATE: 05/06/2018 3:06 PM EST AGE/SEX: 82 years / Female INDICATIONS: Left leg swelling. CLINICAL DATA: This is the patient's initial encounter. Patient reports that signs and symptoms have been present for 1 day and indicates a pain score of 4/10. MEDICAL/SURGICAL HISTORY: Asthma. Diabetes. Carpal tunnel syndrome. Lung mass. Appendectomy. Cholecystectomy. Eye surgery. Left cyst removal. Heart artery stent. COMPARISON: [facility], US LEG LEFT VENOUS DOPPLER, 02/02/2016. . TECHNIQUE: Venous ultrasound of both lower extremities was performed from the inguinal ligament to t he proximal calf. Real-time, color Doppler and spectral tracing, compression and augmentation techni ques were used. FINDINGS: Normal compression of the deep venous system from the inguinal region to the proximal calf . No echogenic clot is seen. Normal response of the venous system to augmentation and respiration. CONCLUSION: The study is negative for lower extremity deep venous thrombosis. Electronically signed by: Diego Guevara MD Board Certified Radiologist 05/06/2018 3:07 PM EST
[2018-05-06] MEDS: Heparin - SQ 10,000 UNITS/ML Vial SQ SCH (15:53)
[2018-05-06] MEDS ORDERED: Benzonatate 100 MG Capsule PO PRN (18:00)
[2018-05-06] MEDS: Insulin NovoLOG Aspart Correctional Sugar Inj SQ SCH ×2 (18:37→20:45)
[2018-05-06] MEDS: Gabapentin 300 MG Capsule PO SCH (18:42)
[2018-05-06] MEDS: Sod Chloride 0.9% Inj 1,000 ML IV.CONT SCH (18:42)
[2018-05-06] MEDS: Senna/Docusate Sodium 8.6/50 MG Tablet PO SCH (20:43)
[2018-05-06] MEDS: Metoprolol Tartrate 25 MG Tablet PO SCH (20:43)
[2018-05-06] MEDS: Isosorbide Mononitrate 30 MG ER 24HR Tablet (Imdur) PO SCH (20:43)
[2018-05-06] MEDS: Insulin Detemir Inj 1,000 UNIT/10 ML Vial SQ SCH (20:44)
[2018-05-07 00:11] LABS: Thyroid Stimulating Hormone 0.742 uIU/mL (0.358-3.740)
[2018-05-07] MEDS: Heparin - SQ 10,000 UNITS/ML Vial SQ SCH ×3 (01:00→16:07)
[2018-05-07] MEDS: Sod Chloride 0.9% Inj 1,000 ML IV.CONT SCH ×2 (05:26→13:53)
[2018-05-07 05:27] LABS: Calcium 7.9 mg/dL (8.5-10.1); Carbon Dioxide 23.4 meq/L (21.0-32.0); Potassium 4.1 meq/L (3.5-5.1)
--- NOTE | 2018-05-07 08:13 | P.PN ---
Subjective Interval history: Follow up for LLE pain. Patient reports her left leg is feeling better today, however still slightly sore from the knee down to the ankle. She states she has been getting around her hospital room without much difficulty. She denies any recent fall or injury. She states she just gets sore from time to time. She denies any back pain. Denies any lower extremity numbness or weakness. She denies any other medical complaints including no lightheadedness, dizziness , chest pain, palpitations, shortness of breath, or abdominal complaints. She states she lives alone on the first floor of a [employer] building. Physical Exam Vital signs: Vital Signs 05/06/18 08:14 05/06/18 09:23 05/06/18 11:13 Temperature Pulse Rate 81 82 Respiratory Rate 20 20 20 Blood Pressure 156/75 H 120/63 Pulse Oximetry 100 98 05/06/18 15:08 05/06/18 19:41 05/06/18 20:49 Temperature 98.6 F 98.9 F Pulse Rate 84 103 H Respiratory Rate 16 20 Blood Pressure 135/76 132/77 Pulse Oximetry 93 L 96 95 05/06/18 21:13 05/07/18 00:00 05/07/18 04:00 Temperature 97.6 F 98.4 F Pulse Rate 70 80 Respiratory Rate 16 20 20 Blood Pressure 115/67 126/69 Pulse Oximetry 92 L 93 L 05/07/18 07:50 Temperature 98.6 F Pulse Rate 71 Respiratory Rate 12 Blood Pressure 121/63 Pulse Oximetry 88 L Intake & Output 05/06/18 05/07/18 05/07/18 18:59 06:59 18:59 Intake Total 950 / 950 880 / 880 Balance 950 / 950 880 / 880 Weight 98.3 kg Intake: IV 880 / 880 NS Inj 1,000 ML @ 84 mls/hr IV. 880 / 880 CONT .[id number] [facility] Rx#:[id number] Oral 950 / 950 Other: # Voids 1 Weight On Admission 98.3 kg Narrative: GENERAL: Well-nourished, well-developed pleasant elderly female patient in [facility]. SKIN: Warm and dry. No rash. HEENT: Normocephalic. Atraumatic. Pupils equal and round. Mucous membranes pink and moist. CARDIOVASCULAR: Regular rate and rhythm. No murmur appreciated. RESPIRATORY: No accessory muscle use. Clear to auscultation. Breath sounds equal bilaterally. GASTROINTESTINAL: Abdomen soft, non-tender, nondistended. Normoactive bowel sounds x4. MUSCULOSKELETAL: No obvious deformities. Extremities without clubbing, cyanosis , or edema. Bilateral calves nontender. NEUROLOGICAL: Awake and alert. No obvious cranial nerve deficits. 5/5 strength bilateral upper and lower extremities. Normal speech. PSYCHIATRIC: Appropriate mood and affect; insight and judgment normal. Results - Labs CBC & Chem 7: 05/06/18 08:33 05/07/18 04:02 Laboratory Results - last 24 hr 05/06/18 05/06/18 05/06/18 08:33 08:33 08:33 WBC 8.7 RBC 3.62 L Hgb 11.0 L Hct 33.2 L MCV 91.7 MCH 30.4 MCHC 33.2 RDW 14.1 Plt Count 216 MPV 8.8 Neut % (Auto) 70.6 H Lymph % (Auto) 17.4 Hyde % (Auto) 10.1 H Eos % (Auto) 1.2 Baso % (Auto) 0.7 Neut # (Auto) 6.2 Lymph # (Auto) 1.5 Hyde # (Auto) 0.9 Eos # (Auto) 0.1 Baso # (Auto) 0.1 WBC Differential . Differential Comment Auto diff final Sodium 143 Potassium 4.7 Chloride 107 Carbon Dioxide 24.3 Anion Gap 12 BUN 20 H Creatinine 1.18 H Estimated GFR 53 L POC Glucose Random Glucose 110 H Calcium 8.9 Vitamin B12 678 TSH 0.742 Urine Color Urine Clarity Urine pH Ur Specific [place] Urine Protein Urine Glucose (UA) Urine Ketones Urine Occult Blood Urine Nitrate Urine Bilirubin Urine Urobilinogen Ur Leukocyte Esterase Urine RBC Urine WBC Ur Squamous Epith Cells Urine Mucus Micro UA Comment Ur Microscopic Review Urine Culture Comments 05/06/18 05/06/18 05/06/18 11:20 13:31 18:05 WBC RBC Hgb Hct MCV MCH MCHC RDW Plt Count MPV Neut % (Auto) Lymph % (Auto) Hyde % (Auto) Eos % (Auto) Baso % (Auto) Neut # (Auto) Lymph # (Auto) Hyde # (Auto) Eos # (Auto) Baso # (Auto) WBC Differential Differential Comment Sodium Potassium Chloride Carbon Dioxide Anion Gap BUN Creatinine Estimated GFR POC Glucose 114 H 156 H Random Glucose Calcium Vitamin B12 TSH Urine Color Yellow Urine Clarity Clear Urine pH 6.0 Ur Specific [place] 1.018 Urine Protein Negative Urine Glucose (UA) Negative Urine Ketones Negative Urine Occult Blood Negative Urine Nitrate Negative Urine Bilirubin Negative Urine Urobilinogen Less than 2 Ur Leukocyte Esterase Negative Urine RBC Less than 1 Urine WBC 1 Ur Squamous Epith Cells 2 Urine Mucus Few H Micro UA Comment Culture not ind Ur Microscopic Review Not Reportable Urine Culture Comments Culture not ind 05/06/18 05/07/18 20:25 04:02 WBC RBC Hgb Hct MCV MCH MCHC RDW Plt Count MPV Neut % (Auto) Lymph % (Auto) Hyde % (Auto) Eos % (Auto) Baso % (Auto) Neut # (Auto) Lymph # (Auto) Hyde # (Auto) Eos # (Auto) Baso # (Auto) WBC Differential Differential Comment Sodium 141 Potassium 4.1 Chloride 109 H Carbon Dioxide 23.4 Anion Gap 9 BUN 26 H Creatinine 1.12 H Estimated GFR 56 L POC Glucose 288 H Random Glucose 215 H D Calcium 7.9 L D Vitamin B12 TSH Urine Color Urine Clarity Urine pH Ur Specific [place] Urine Protein Urine Glucose (UA) Urine Ketones Urine Occult Blood Urine Nitrate Urine Bilirubin Urine Urobilinogen Ur Leukocyte Esterase Urine RBC Urine WBC Ur Squamous Epith Cells Urine Mucus Micro UA Comment Ur Microscopic Review Urine Culture Comments - Imaging Impressions Venous Doppler Study 05/06/18 00:00 CONCLUSION: The study is negative for lower extremity deep venous thrombosis. Lumbar Spine MRI 05/06/18 08:25 CONCLUSION: 1. Severe central canal stenosis at the L4-5 level secondary to grade 1 anterior spondylolisthesis, disc bulge and degenerative change involving the facet joints. 2. Moderate to severe central canal stenosis at L3-4 secondary to disc bulge and degenerative change involving the facets. 3. Milder disc bulges at the L1-2, L2-3 and L5-S1 levels. 4. Borderline foraminal stenosis bilaterally at L4-5. There is mild narrowing at the L1-2, L2-3 and L3-4 levels. Assessment and Plan - Plan 82-year-old female with a history of asthma, hyperlipidemia, diabetes mellitus, coronary artery disease status post stent, chronic kidney disease stage III and recently diagnosed lung mass. She presents to the emergency department because of left leg pain for the past week. She describes a constant burning pain from her knee down to her foot no precipitating or alleviating factors. Denies recent trauma, back pain, urinary or stool incontinence. No history of DVT. Lumbar spine MRI shows severe central canal stenosis at the L4-L5 level secondary to grade 1 anterior spondylolisthesis. Moderate to severe central's canal stenosis at L3-4. Left lower extremity pain with inability to ambulate: acute on chronic. No back pain. -Lumbar MRI shows Severe central canal stenosis at the L4-5 level secondary to grade 1 anterior spondylolisthesis, disc bulge and degenerative change involving the facet joints. Moderate to severe central canal stenosis at L3-4 secondary to disc bulge and degenerative change involving the facets. -Left ankle xray negative for fracture, shows some generalized soft tissue swelling -Doppler U/S negative for DVT -Pain control patient's patient's home Neurontin and Lortab q6h, with oxycodone as needed -Consult PT -Consulted neurology for abnormal MRI -ABIs ordered -Symptoms improving HTN/HLD/CAD w/stent: chronic -continue patient's aspirin, plavix, lasix, imdur, metoprolol -monitor BP, adjust antihypertensives as needed Diabetes Mellitus: chronic -continue patient's lantus 30u hs -hold patient's metformin -monitor accu-checks and cover with SSI DVT prophylaxis with subcu heparin and early ambulation Discharge Planning: Possible discharge tomorrow 05/08, awaiting ABIs, PT eval, and neuro clearance.
[2018-05-07] MEDS: Gabapentin 300 MG Capsule PO SCH ×3 (09:09→17:41)
[2018-05-07] MEDS: Senna/Docusate Sodium 8.6/50 MG Tablet PO SCH ×2 (09:10→20:28)
[2018-05-07] MEDS: Metoprolol Tartrate 25 MG Tablet PO SCH ×2 (09:10→20:27)
[2018-05-07] MEDS: Furosemide 20 MG Tablet PO SCH (09:10)
[2018-05-07] MEDS: Insulin NovoLOG Aspart Correctional Sugar Inj SQ SCH ×4 (09:11→21:29)
--- NOTE | 2018-05-07 09:47 | XR ---
EXAM DATE: 05/07/2018 9:44 AM EST AGE/SEX: 82 years / Female INDICATIONS: Unable to bare weight on left ankle. CLINICAL DATA: This is the patient's initial encounter. Patient reports that signs and symptoms have been present for 1 day and indicates a pain score of 4/10. MEDICAL/SURGICAL HISTORY: . Asthma. Diabetes. Carpal tunnel syndrome. Lung mass. . Appendecto my. Cholecystectomy. Eye surgery. Left cyst removal. Heart artery stent COMPARISON: No prior exams available for comparison. FINDINGS: Moderate vascular calcifications are noted with generalized soft tissue swelling. Alignment is anatom ic. Fracture is not appreciated on these 2 views. CONCLUSION: Negative limited ankle for fracture Extensive vascular calcifications with generalized soft tissue swelling Electronically signed by: Dany Fairbanks MD Board Certified Radiologist 05/07/2018 9:46 AM EST
--- NOTE | 2018-05-07 10:44 | MB ---
cc: Leon Mayo MD DATE: 05/07/2018 HISTORY OF PRESENT ILLNESS: An 82-year-old right-handed woman with insulin-dependent diabetes, hypertension, hypercholesterolemia, cardiac stent, on aspirin and Plavix. She says she has been to 3 funerals in the last several weeks and flew cross country. She had swelling in the left lower extremity and increased pain there. She says she uses a walker at baseline because her legs hurt at times, although is not a very good historian. One time, she had a burn on her right foot. She has not had any falls. She denies any low back pain or sciatica. She tells me her feet are not numb. Sometimes her hands go a little bit numb. REVIEW OF SYSTEMS: She denied any WI, CABG, AFib, Coumadin, renal, hepatic or pulmonary disease, thyroid disease, lupus, ulcer, cancer, seizure, stroke. SOCIAL HISTORY: Nonsmoker or drinker. Lives by herself. FAMILY HISTORY: Positive for cancer. Negative for seizure or stroke. MEDICATIONS AT HOME: She is on insulin, potassium, hydrocodone, gabapentin 300 t.i.d., Lasix, Plavix, multivitamin, atorvastatin, 81 of aspirin, inhalers, lisinopril, isosorbide, metformin. PHYSICAL EXAMINATION: VITAL SIGNS: Afebrile, 71, 12, 121/63, 82, O2 saturations 88-92%. NECK: There were no carotid bruits. HEART: Regular rate and rhythm. I did not dictate a murmur. ABDOMEN: She is mild to moderately obese. NEUROLOGIC: Pupils are equal. Could not see her disks well. Visual simental are full. Extraocular movement intact without nystagmus. Face is symmetric with normal sensation. Tongue was midline. Hearing was intact bilaterally. There is no drift. She had normal strength in bilateral upper and bilateral lower extremities including bilateral iliopsoas, hamstring, quads, tibialis anterior, foot inversion, eversion, toe extensors. DTRs absent throughout. Toes are downgoing bilaterally. No ankle clonus. Tone is normal in bilateral lower extremities. Pinprick was intact in bilateral lower and upper extremities and her face as well as proprioception. She is not ataxic on [id number]. She will not stand up for me. She says she can only stand up using her walker. Her personality is somewhat histrionic, but she says she does not have any anxiety. She could not tell me the year or the month, says she never went to school, never learned it. LABORATORY DATA: CBC was normal. RPR pending. UA negative. Basic metabolic profile, creatinine 1.18, otherwise normal. GFR is normal. Glucose is high 288. B12, thyroid normal. MRI of the LS spine shows multilevel spinal stenosis moderate to moderately severe, rather severe central spinal stenosis at L4-L5, moderate to moderately severe L3-L4. IMPRESSION: Really her pain appears to be due to tenderness of the soft tissue around the ankle and lower leg. She has quite a bit of swelling there, she says a lot as if it was swollen out like an elephant's leg, but no longer is. I could not detect any pulses in her feet. I think it would be good idea to check an arterial Doppler if we can. I know she did have a venous Doppler, which did not show any DVTs. This appears to be more of a soft tissue tenderness type problem and I do not see anything here indicating that this comes from her low back or it is a neuropathic problem, even though she has spinal stenosis, it appears to be asymptomatic and I would not work that up or recommend any surgery. I would just check a sedimentation rate on her, arterial Dopplers. If those are negative, she could be discharged. She is feeling a lot better this morning. Pain is almost gone, but her skin she says is tender all over her body, in fact to be touched her skin anywhere, she does not like it. We will also just check an x-ray of the left ankle. MD SANDRA Chaney/sv/carlton , 09:05 AM , 09:14 AM
--- NOTE | 2018-05-07 11:11 | ECHRPT ---
EXAM DATE: 05/07/2018 10:41 AM EST AGE/SEX: 82 years / Female INDICATIONS: claudication CLINICAL DATA: This is the patient's initial encounter. Patient reports that signs and symptoms have been present for 1 week and indicates a pain score of 2/10. MEDICAL/SURGICAL HISTORY: . asthma, carpal tunnel, diabetes mellitus, hard of hearing, CKD III, lung mass . eye surgery, cyst x 2 left wrist, heart artery stent, appendectomy, cholecystectomy COMPARISON: No prior exams available for comparison. TECHNIQUE: Four-cuff ankle and brachial pressures were obtained. Pulse cuff waveform tracings of the ankles were recorded, and ankle-brachial indices were calculated. PRESSURES (mmHg): Brachial (arm) : RIGHT: 100, LEFT: iv site Ankle : RIGHT: 79, LEFT: 94 XIOMY : RIGHT: 0.79, LEFT: 0.94 TBI : RIGHT: 0.47, LEFT: 0.38 FINDINGS: Pulsed-Cuff Waveform: There are good upstroke and a dicrotic downstroke of the tracings. Other: None. CONCLUSION: Findings of mild disease on the right. CT angiography of the abdominal aorta and lower extremities is recommended for further evaluation if clinically indicated. There are findings of small vessel vasc ular disease bilaterally with abnormal toe brachial indices Electronically signed by: Leon Villafuerte MD Board Certified Radiologist 05/07/2018 11:10 AM EST
--- NOTE | 2018-05-07 15:22 | P.DCO ---
- Diagnosis (1) Diabetes mellitus Status: Acute (2) HTN (hypertension) Status: Acute (3) CAD (coronary artery disease) Status: Acute (4) Stented coronary artery Status: Acute (5) Left sided sciatica Status: Acute (6) Unable to ambulate Status: Acute - Physical Therapy Order: Evaluate and treat, Improve ambulation, Strength and gait training - Home Health Nursing Order: Medical education, Signs/symptoms of disease process, Nursing assessment with vital signs - Case Management Consult Case Management Consult-Home Health: Yes - Certification I have seen patient Rachel Cao on 05/07/18. My clinical findings support the need for the requested home health care services because: Deconditioned with increased weakness, Limited ability to care for self, High risk of falls I certify that my clinical findings support that this patient is homebound because: Unsteady gait/balance, Unsafe to leave home unassisted
[2018-05-07] MEDS: Isosorbide Mononitrate 30 MG ER 24HR Tablet (Imdur) PO SCH (20:33)
[2018-05-07] MEDS: Insulin Detemir Inj 1,000 UNIT/10 ML Vial SQ SCH (20:43)
[2018-05-08] MEDS: Heparin - SQ 10,000 UNITS/ML Vial SQ SCH ×4 (00:04→23:17)
[2018-05-08] MEDS: Metoprolol Tartrate 25 MG Tablet PO SCH ×2 (08:18→20:55)
[2018-05-08] MEDS: Furosemide 20 MG Tablet PO SCH (08:18)
[2018-05-08] MEDS: Lisinopril 5 MG Tablet PO SCH (08:18)
[2018-05-08] MEDS: Senna/Docusate Sodium 8.6/50 MG Tablet PO SCH ×2 (08:19→20:55)
[2018-05-08] MEDS: Gabapentin 300 MG Capsule PO SCH ×3 (08:19→17:50)
[2018-05-08] MEDS: Insulin NovoLOG Aspart Correctional Sugar Inj SQ SCH ×4 (08:24→20:59)
--- NOTE | 2018-05-08 08:55 | P.PNNEU ---
Subjective Medication List: pain gone walks steady with walker Active Medications: Active Medications Acetaminophen (Tylenol) 650 mg PO Q4H PRN PRN Reason: Temp > 100.4 Hydrocodone Bitart/Acetaminophen ([place] 5/325) 1 tab PO Q6H [facility] Last Admin: 05/08/18 08:19 Dose: 1 tab Albuterol (Albuterol Neb (Prn)) 2.5 mg NEB TID NEB PRN PRN Reason: Shortness Of Breath Or Wheezing Aspirin (Ecotrin) 81 mg PO HS [facility] Last Admin: 05/07/18 20:30 Dose: 81 mg Atorvastatin Calcium (Lipitor) 40 mg PO QPM [facility] Last Admin: 05/07/18 17:41 Dose: 40 mg Benzonatate (Tessalon Perles) 100 mg PO TID PRN PRN Reason: COUGH Bisacodyl (Dulcolax Supp) 10 mg RECTAL DAILY PRN PRN Reason: SEVERE CONSITIPATION Clopidogrel Bisulfate (Plavix) 75 mg PO DAILY [facility] Last Admin: 05/08/18 08:19 Dose: 75 mg Dextrose (D50w Vial) 50 ml IV.PUSH UNSCH PRN PRN Reason: PER HYPOGLYCEMIA PROTOCOL Ferrous Fumarate (Hemocyte) 324 mg PO DAILY [facility] Last Admin: 05/08/18 08:19 Dose: 324 mg Furosemide (Lasix) 20 mg PO DAILY [facility] Last Admin: 05/08/18 08:18 Dose: 20 mg Gabapentin (Neurontin) 300 mg PO TID [facility] Last Admin: 05/08/18 08:19 Dose: 300 mg Glucagon (Glucagon Inj) 1 mg OTHER PRN PRN PRN Reason: for Hypoglycemia Protocol Heparin Sodium (Porcine) (Heparin Inj) 5,000 units SQ Q8H [facility] Last Admin: 05/08/18 06:36 Dose: 5,000 units Insulin Aspart (Novolog Insulin Correctional Sugar Inj) 0 unit SQ [facility]; Protocol Last Admin: 05/08/18 08:24 Dose: Not Given Insulin Detemir (Levemir Inj) 30 unit SQ [facility] Last Admin: 05/07/18 20:43 Dose: 30 unit Isosorbide Mononitrate (Imdur) 30 mg PO [facility] Last Admin: 05/07/18 20:33 Dose: 30 mg Lactulose (Lactulose Liq) 30 ml PO DAILY PRN PRN Reason: SEVERE CONSITIPATION Lisinopril (Prinivil) 2.5 mg PO DAILY [facility] Last Admin: 05/08/18 08:18 Dose: 2.5 mg Metoprolol Tartrate (Lopressor) 25 mg PO BID [facility] Last Admin: 05/08/18 08:18 Dose: 25 mg Naloxone HCl (Narcan Inj) 0.4 mg IV.PUSH UNSCH PRN PRN Reason: SEE LABEL COMMENTS Ondansetron HCl (Zofran Inj) 4 mg IV.PUSH Q6H PRN PRN Reason: NAUSEA OR VOMITING Oxycodone HCl (Roxicodone) 5 mg PO Q4H PRN PRN Reason: PAIN SCALE 3 TO 5 Oxycodone HCl (Roxicodone) 10 mg PO Q4H PRN PRN Reason: PAIN SCALE 6 TO 10 Potassium Chloride (K-Dur) 20 meq PO DAILY [facility] Last Admin: 05/08/18 08:19 Dose: 20 meq Senna/Docusate Sodium (Gia-Colace) 1 tab PO BID [facility] Last Admin: 05/08/18 08:19 Dose: 1 tab Sennosides (Senokot) 17.2 mg PO Q12H PRN PRN Reason: Moderate Constipation Last Admin: 05/07/18 16:07 Dose: 17.2 mg Sodium Chloride (Ns Flush) 2 ml IV.FLUSH BID [facility] Last Admin: 05/08/18 08:19 Dose: 2 ml Sodium Chloride (Ns Flush) 2 ml IV.FLUSH PRN PRN PRN Reason: FLUSH AFTER USING IV ACCESS Allergies/Adverse Reactions: Allergies Allergy/AdvReac Type Severity Reaction Status Date / Time tomato Allergy Intermediate FACIAL Verified 05/06/18 08:11 SWELLING morphine Allergy Mild Itching Verified 05/06/18 08:11 Physical Exam Vital signs: Vital Signs 05/07/18 11:14 05/07/18 16:00 05/07/18 20:00 Temperature 99.4 F 99.5 F 99.7 F H Pulse Rate 77 72 81 Respiratory Rate 16 16 18 Blood Pressure 118/56 L 145/78 H 121/57 L Pulse Oximetry 92 L 97 93 L 05/08/18 00:00 05/08/18 04:00 05/08/18 07:13 Temperature 98.5 F 98.3 F 97.8 F Pulse Rate 71 66 68 Respiratory Rate 18 18 16 Blood Pressure 156/72 H 122/59 L 139/72 Pulse Oximetry 96 97 99 Intake & Output 05/07/18 05/08/18 05/08/18 18:59 06:59 18:59 Intake Total 725 / 725 360 / 360 Balance 725 / 725 360 / 360 Weight 98.3 kg Intake: IV 725 / 725 NS Inj 1,000 ML @ 84 mls/hr IV. 725 / 725 CONT .[id number] [facility] Rx#:[id number] Oral 360 / 360 Other: # Voids 3 Date of Last Bowel Movement 05/08/18 # Bowel Movements 1 Objective Laboratory Results - last 24 hr 05/07/18 05/07/18 05/07/18 04:02 09:05 10:17 ESR 52 H POC Glucose 140 H Rheumatoid Factor Scrn Rheumatoid Factor Titer RPR Reactive H 05/07/18 05/07/18 05/07/18 10:17 11:43 17:40 ESR POC Glucose 189 H 159 H Rheumatoid Factor Scrn Negative Rheumatoid Factor Titer Not Reportable RPR 05/07/18 05/08/18 20:27 08:24 ESR POC Glucose 215 H 98 Rheumatoid Factor Scrn Rheumatoid Factor Titer RPR Review/Management - Review/Management Plan: imp esr up a little rf neg [place] near nl xray neg ankle pain gone rpr pos i added fta and uric acid and crp if these are ok could dc neurowise
--- NOTE | 2018-05-08 16:29 | P.PNIM ---
Subjective Interval history: Follow up LLE pain Patient reports complete resolution in left lower extremity pain. She denies calf pain, shortness of breath or chest pain. She is tolerating PO intake. No other complaints voiced at this time. Physical Exam Vital signs: Last Vital Signs Temp 97.8 F 05/08/18 07:13 Pulse 63 05/08/18 16:00 Resp 16 05/08/18 16:00 BP 129/60 05/08/18 16:00 Pulse Ox 97 05/08/18 16:00 Intake & Output 05/06/18 05/07/18 05/08/18 05/09/18 06:59 06:59 06:59 06:59 Intake Total 1830 / 1830 1085 / 1085 Balance 1830 / 1830 1085 / 1085 Weight 98.3 kg 98.3 kg Narrative: GENERAL: Well-nourished, well-developed pleasant elderly female patient in [facility]. SKIN: Warm and dry. No rash. HEENT: Normocephalic. Atraumatic. Pupils equal and round. Mucous membranes pink and moist. CARDIOVASCULAR: Regular rate and rhythm. No murmur appreciated. RESPIRATORY: No accessory muscle use. Clear to auscultation. Breath sounds equal bilaterally. GASTROINTESTINAL: Abdomen soft, non-tender, nondistended. Normoactive bowel sounds x4. MUSCULOSKELETAL: No obvious deformities. Extremities without clubbing, cyanosis , or edema. Bilateral calves nontender. NEUROLOGICAL: Awake and alert. No obvious cranial nerve deficits. 5/5 strength bilateral upper and lower extremities. Normal speech. PSYCHIATRIC: Appropriate mood and affect; insight and judgment normal. Results Labs CBC & Chem 7: 05/06/18 08:33 05/07/18 04:02 Assessment and Plan Plan 82-year-old female with a history of asthma, hyperlipidemia, diabetes mellitus, coronary artery disease status post stent, chronic kidney disease stage III and recently diagnosed lung mass. She presents to the emergency department because of left leg pain for the past week. She describes a constant burning pain from her knee down to her foot no precipitating or alleviating factors. Denies recent trauma, back pain, urinary or stool incontinence. No history of DVT. Lumbar spine MRI shows severe central canal stenosis at the L4-L5 level secondary to grade 1 anterior spondylolisthesis. Moderate to severe central's canal stenosis at L3-4. Left lower extremity pain with inability to ambulate: acute on chronic. No back pain. -Lumbar MRI shows severe central canal stenosis at the L4-5 level secondary to grade 1 anterior spondylolisthesis, disc bulge and degenerative change involving the facet joints. Moderate to severe central canal stenosis at L3-4 secondary to disc bulge and degenerative change involving the facets. -Left ankle x-ray negative for fracture, shows some generalized soft tissue swelling -Doppler U/S negative for DVT -Pain control patient's patient's home Neurontin and Lortab q6h, with oxycodone as needed -Consult PT -Consulted neurology for abnormal MRI. -ESR and CRP elevated, RPR (+), uric acid 5.4, FTA pending -XIOMY's -> mild disease on right, small vessel vascular disease bilaterally with abnormal toe brachial indices -symptoms resolved HTN/HLD/CAD w/stent: chronic -continue patient's aspirin, plavix, lasix, Imdur, metoprolol -monitor BP, adjust antihypertensives as needed Diabetes Mellitus: chronic -continue patient's lantus 30u hs -hold patient's metformin -monitor accu-checks and cover with SSI MDM: self DVT prophylaxis with subcu heparin and early ambulation Discussed Condition With: RN, patient Discharge Planning: Home with HH PT eval/treat, patient will require supervision at home for safety. She has her own 4 wheeled walker at home. Progress Note: Quality VTE Deep Vein Thrombosis/Pulmonary Embolism Present on Admission: No
[2018-05-08] MEDS: Isosorbide Mononitrate 30 MG ER 24HR Tablet (Imdur) PO SCH (20:56)
[2018-05-08] MEDS: Insulin Detemir Inj 1,000 UNIT/10 ML Vial SQ SCH (21:02)
[2018-05-09] MEDS: Heparin - SQ 10,000 UNITS/ML Vial SQ SCH ×3 (06:03→22:55)
[2018-05-09] MEDS: Senna/Docusate Sodium 8.6/50 MG Tablet PO SCH ×2 (08:25→21:17)
[2018-05-09] MEDS: Lisinopril 5 MG Tablet PO SCH (08:25)
[2018-05-09] MEDS: Metoprolol Tartrate 25 MG Tablet PO SCH ×2 (08:25→21:18)
[2018-05-09] MEDS: Gabapentin 300 MG Capsule PO SCH ×3 (08:25→17:11)
[2018-05-09] MEDS: Furosemide 20 MG Tablet PO SCH (08:26)
[2018-05-09] MEDS: Insulin NovoLOG Aspart Correctional Sugar Inj SQ SCH ×4 (08:31→21:18)
--- NOTE | 2018-05-09 09:04 | P.PNNEU ---
Subjective Active Medications: Active Medications Acetaminophen (Tylenol) 650 mg PO Q4H PRN PRN Reason: Temp > 100.4 Hydrocodone Bitart/Acetaminophen ([place] 5/325) 1 tab PO Q6H [facility] Last Admin: 05/09/18 08:25 Dose: 1 tab Albuterol (Albuterol Neb (Prn)) 2.5 mg NEB TID NEB PRN PRN Reason: Shortness Of Breath Or Wheezing Aspirin (Ecotrin) 81 mg PO HS [facility] Last Admin: 05/08/18 20:55 Dose: 81 mg Atorvastatin Calcium (Lipitor) 40 mg PO QPM [facility] Last Admin: 05/08/18 17:50 Dose: 40 mg Benzonatate (Tessalon Perles) 100 mg PO TID PRN PRN Reason: COUGH Bisacodyl (Dulcolax Supp) 10 mg RECTAL DAILY PRN PRN Reason: SEVERE CONSITIPATION Clopidogrel Bisulfate (Plavix) 75 mg PO DAILY [facility] Last Admin: 05/09/18 08:25 Dose: 75 mg Dextrose (D50w Vial) 50 ml IV.PUSH UNSCH PRN PRN Reason: PER HYPOGLYCEMIA PROTOCOL Ferrous Fumarate (Hemocyte) 324 mg PO DAILY [facility] Last Admin: 05/09/18 08:26 Dose: 324 mg Furosemide (Lasix) 20 mg PO DAILY [facility] Last Admin: 05/09/18 08:26 Dose: 20 mg Gabapentin (Neurontin) 300 mg PO TID [facility] Last Admin: 05/09/18 08:25 Dose: 300 mg Glucagon (Glucagon Inj) 1 mg OTHER PRN PRN PRN Reason: for Hypoglycemia Protocol Heparin Sodium (Porcine) (Heparin Inj) 5,000 units SQ Q8H [facility] Last Admin: 05/09/18 06:03 Dose: 5,000 units Insulin Aspart (Novolog Insulin Correctional Sugar Inj) 0 unit SQ ACHS [facility]; Protocol Last Admin: 05/09/18 08:31 Dose: Not Given Insulin Detemir (Levemir Inj) 30 unit SQ [facility] Last Admin: 05/08/18 21:02 Dose: 30 unit Isosorbide Mononitrate (Imdur) 30 mg PO HS [facility] Last Admin: 05/08/18 20:56 Dose: 30 mg Lactulose (Lactulose Liq) 30 ml PO DAILY PRN PRN Reason: SEVERE CONSITIPATION Lisinopril (Prinivil) 2.5 mg PO DAILY [facility] Last Admin: 05/09/18 08:25 Dose: 2.5 mg Metoprolol Tartrate (Lopressor) 25 mg PO BID [facility] Last Admin: 05/09/18 08:25 Dose: 25 mg Naloxone HCl (Narcan Inj) 0.4 mg IV.PUSH UNSCH PRN PRN Reason: SEE LABEL COMMENTS Ondansetron HCl (Zofran Inj) 4 mg IV.PUSH Q6H PRN PRN Reason: NAUSEA OR VOMITING Oxycodone HCl (Roxicodone) 5 mg PO Q4H PRN PRN Reason: PAIN SCALE 3 TO 5 Oxycodone HCl (Roxicodone) 10 mg PO Q4H PRN PRN Reason: PAIN SCALE 6 TO 10 Potassium Chloride (K-Dur) 20 meq PO DAILY [facility] Last Admin: 05/09/18 08:26 Dose: 20 meq Senna/Docusate Sodium (Gia-Colace) 1 tab PO BID [facility] Last Admin: 05/09/18 08:25 Dose: 1 tab Sennosides (Senokot) 17.2 mg PO Q12H PRN PRN Reason: Moderate Constipation Last Admin: 05/07/18 16:07 Dose: 17.2 mg Sodium Chloride (Ns Flush) 2 ml IV.FLUSH BID [facility] Last Admin: 05/08/18 20:56 Dose: 2 ml Sodium Chloride (Ns Flush) 2 ml IV.FLUSH PRN PRN PRN Reason: FLUSH AFTER USING IV ACCESS Allergies/Adverse Reactions: Allergies Allergy/AdvReac Type Severity Reaction Status Date / Time tomato Allergy Intermediate FACIAL Verified 05/06/18 08:11 SWELLING morphine Allergy Mild Itching Verified 05/06/18 08:11 Physical Exam Vital signs: Vital Signs 05/08/18 10:45 05/08/18 11:35 05/08/18 16:00 Temperature Pulse Rate 73 63 Respiratory Rate 16 18 16 Blood Pressure 127/64 129/60 Pulse Oximetry 95 97 05/08/18 19:50 05/08/18 23:47 05/09/18 04:00 Temperature 98.6 F 98.8 F 98.6 F Pulse Rate 72 62 66 Respiratory Rate 18 18 16 Blood Pressure 152/74 H 118/60 153/65 H Pulse Oximetry 97 94 L 98 05/09/18 07:15 Temperature 97.5 F L Pulse Rate 64 Respiratory Rate 18 Blood Pressure 117/61 Pulse Oximetry 97 Intake & Output 05/08/18 05/09/18 05/09/18 18:59 06:59 18:59 Weight 97.9 kg Other: # Voids 5 6 Date of Last Bowel Movement 05/08/18 Narrative: alert nad no pain in leg now has been walking alot Objective Laboratory Results - last 24 hr 05/08/18 05/08/18 05/08/18 10:02 10:02 12:20 POC Glucose 126 H Uric Acid 5.4 C-Reactive Protein 3.51 H 05/08/18 05/08/18 05/09/18 17:53 20:59 08:31 POC Glucose 115 H 139 H 105 Uric Acid C-Reactive Protein Review/Management - Review/Management Plan: imp esr up a little rf neg [place] near nl xray neg ankle pain gone rpr pos i added fta and uric acid and crp if these are ok could dc neurowise 05/09/18 ct braina dn c spine neg in past fta and onofre pend if fta positive i would rec ID consult plz fu onofre result i will sign off
[2018-05-09] MEDS: Isosorbide Mononitrate 30 MG ER 24HR Tablet (Imdur) PO SCH (21:17)
[2018-05-09] MEDS: Insulin Detemir Inj 1,000 UNIT/10 ML Vial SQ SCH (21:18)
[2018-05-10] MEDS: Heparin - SQ 10,000 UNITS/ML Vial SQ SCH ×2 (06:31→14:09)
[2018-05-10] MEDS: Lisinopril 5 MG Tablet PO SCH (08:00)
[2018-05-10] MEDS: Metoprolol Tartrate 25 MG Tablet PO SCH (08:00)
[2018-05-10] MEDS: Gabapentin 300 MG Capsule PO SCH ×2 (08:06→14:09)
[2018-05-10] MEDS: Senna/Docusate Sodium 8.6/50 MG Tablet PO SCH (08:06)
[2018-05-10] MEDS: Insulin NovoLOG Aspart Correctional Sugar Inj SQ SCH ×2 (08:06→13:54)
[2018-05-10] MEDS: Furosemide 20 MG Tablet PO SCH (08:06)
--- NOTE | 2018-05-10 17:23 | P.DS ---
DS: Providers Date of admission: 05/06/18 13:28 Primary care physician: Brock Dela Cruz MD Consults: 05/06/18 14:29 HUB Only Consult Order Routine Consulting Provider: [employer],Insurance 05/06/18 16:44 Consult to Neurology Routine Consulting Provider: Juan Doty Reason for Consultation: neuropathy with inability to ambulate Notified:: Service Spoke with:: Indu Date Notified:: 05/06/18 Time Notified:: 16:48 Ordering Provider: CHRISTI Sotomayor date of discharge: 05/10/18 Brief History from admission: This is a 82-year-old female with a history of asthma, hyperlipidemia, diabetes mellitus, coronary artery disease status post stent, chronic kidney disease stage III and recently diagnosed lung mass. She presents to the emergency department because of left leg pain for the past week. She describes a constant burning pain from her knee down to her foot no precipitating or alleviating factors. Denies recent trauma, back pain, urinary or stool incontinence. No history of DVT. Lumbar spine MRI shows severe central canal stenosis at the L4-L5 level secondary to grade 1 anterior spondylolisthesis. Moderate to severe central's canal stenosis at L3-4. ER physician recommended hospitalization for further evaluation and treatment as patient not able to ambulate. All other systems reviewed negative Patient update on day of discharge: Patient denied any pain to her LLE. She is able to ambulate with the assistance of a wheeled walker. Discussed pending lab work with patient and daughter and advised them to follow up with PCP within 1 week regarding results of JOSE EDUARDO and FTA test. Both verbalized understanding. All questions were answered at the bedside. DS: Diagnosis Discharge Diagnosis (1) Left sided sciatica: Status: Acute Diagnosis: Principal (2) Diabetes mellitus: Status: Acute Diagnosis: Secondary (3) HTN (hypertension): Status: Acute Diagnosis: Secondary (4) CAD (coronary artery disease): Status: Acute Diagnosis: Secondary (5) Unable to ambulate: Status: Acute Diagnosis: Principal DS: Summary Patient was seen in consultation by neurology specialist Dr. Mayo. He noted that patient's venous Doppler of the left lower extremity did not show any DVTs. MRI of the lumbar spine was completed and showed moderate to severe canal stenosis. Dr Mayo noted that the patient appeared to have soft tissue tenderness and there was no indication that the pain was coming from her lower back or being a neuropathic problem even though she has moderate to severe spinal stenosis. XIOMY study was ordered and was unremarkable. RPR tested as reactive. Neurology ordered an JOSE EDUARDO and FTA with recommendations to refer to ID if FTA is positive. Blood work was collected, however, pending at time of discharge. Patient was advised to follow up with her PCP Dr Dela Cruz at the end of this week for her results. Daughter stated she would call right away to schedule an appointment. Patient reported complete resolution of her left lower extremity pain. She was able to bear weight and ambulate with assistance of a wheeled walker. PT recommended 24-hour supervision. Daughter states that patient has roommates and they operate in the body system. She also stated that she checks on her mother approximately 4 times a day as she is unable to give herself her insulin. ED precautions were provided for any worsening signs or symptoms. Both daughter and patient verbalized understanding of all provided instructions. Time Spent with Patient Total time spent providing and/or coordinating discharge services: Greater than 30 minutes Status at Discharge Functional status at discharge: uses cane/walker Overall status at discharge: patient is back to baseline Quality: VTE Deep Vein Thrombosis/Pulmonary Embolism Present on Admission: No Exam Narrative Exam Narrative: GENERAL: no acute distress, well developed, well nourished SKIN: warm and dry. HEAD: Normocephalic, atraumatic EYES: No scleral icterus. No injection or drainage. NECK: Supple, trachea midline. No JVD or lymphadenopathy. CARDIOVASCULAR: Regular rate and rhythm without murmurs, gallops, or rubs. RESPIRATORY: Breath sounds equal bilaterally. No accessory muscle use. GASTROINTESTINAL: Abdomen soft, non-tender, nondistended. MUSCULOSKELETAL: No cyanosis, or edema. BACK: Nontender without obvious deformity. No CVA tenderness. Results Labs on day of discharge: Labs from last 24 hours 05/10/18 05/10/18 05/09/18 12:32 08:05 20:10 POC Glucose 163 H 123 H 351 H JOSE EDUARDO Screen 05/09/18 05/07/18 17:15 10:17 POC Glucose 152 H JOSE EDUARDO Screen Neg Impressions ITS Impressions Venous Doppler Study 05/06/18 00:00 CONCLUSION: The study is negative for lower extremity deep venous thrombosis. Lumbar Spine MRI 05/06/18 08:25 CONCLUSION: 1. Severe central canal stenosis at the L4-5 level secondary to grade 1 anterior spondylolisthesis, disc bulge and degenerative change involving the facet joints. 2. Moderate to severe central canal stenosis at L3-4 secondary to disc bulge and degenerative change involving the facets. 3. Milder disc bulges at the L1-2, L2-3 and L5-S1 levels. 4. Borderline foraminal stenosis bilaterally at L4-5. There is mild narrowing at the L1-2, L2-3 and L3-4 levels. Ankle X-Ray 05/07/18 00:00 CONCLUSION: Negative limited ankle for fracture Extensive vascular calcifications with generalized soft tissue swelling Extremity Arterial Study 05/07/18 00:00 CONCLUSION: Findings of mild disease on the right. CT angiography of the abdominal aorta and lower extremities is recommended for further evaluation if clinically indicated. There are findings of small vessel vascular disease bilaterally with abnormal toe brachial indices Discharge Plan Discharge Disposition Patient Disposition: W/Home Health Service Discharge Condition Condition: Stable Discharge Order Discharge Orders: Discharge Order (Routine); Ordered 05/10/18 Ordered By: Dylan Webb Discharge Details Anticipated Discharge Date: 05/10/18 Discharge Comment: Please follow up with your PCP in 1 week regarding your JOSE EDUARDO and FTA lab test results. Physicians Team ED Provider: Vira Brown Primary Care Provider: Brock Dela Cruz Attending Provider: Thien Ramirez Other Providers: [facility],Insurance ; Juan Doty Rxs /Orders / Referrals /Forms Prescriptions: Continue metformin 1,000 mg Tablet 1,000 mg PO BID RF: 0 multivitamin [Multiple Vitamins] Tablet 1 tab PO DAILY RF: 0 atorvastatin 40 mg Tablet 40 mg PO QPM RF: 0 albuterol sulfate 2.5 mg /3 mL (0.083 %) Solution For Nebulization 2.5 mg INHALATION TID PRN (Reason: Shortness Of Breath Or Wheezing) RF: 0 hydrocodone-acetaminophen 5-325 mg Tablet 1 tab PO Q6H RF: 0 isosorbide mononitrate 30 mg Tablet Extended Release 24 Hr 30 mg PO HS RF: 0 clopidogrel 75 mg Tablet 75 mg PO DAILY RF: 0 aspirin [Aspir-81] 81 mg Tablet,Delayed Release (Dr/Ec) 81 mg PO HS RF: 0 gabapentin 300 mg Capsule 300 mg PO TID RF: 0 furosemide 20 mg Tablet 20 mg PO DAILY RF: 0 albuterol sulfate [Proventil HFA] 90 mcg/actuation Hfa Aerosol Inhaler 1 puff INHALATION Q4-6H PRN (Reason: Shortness Of Breath Or Wheezing) RF: 0 lisinopril 2.5 mg Tablet 2.5 mg PO DAILY RF: 0 insulin lispro [Humalog U-100 Insulin] 100 unit/mL Cartridge See Label Instructions .ROUTE .COMPLEX RF: 0 metoprolol tartrate 25 mg Tablet 25 mg PO BID RF: 0 insulin glargine [Lantus Solostar U-100 Insulin] 100 unit/mL (3 mL) Insulin Pen 30 unit SUBCUT HS RF: 0 ferrous fumarate 325 mg (106 mg iron) Tablet 325 mg PO DAILY RF: 0 potassium chloride 20 mEq Tablet Extended Release 20 meq PO DAILY RF: 0 Tessalon Perles 100 mg PO TID PRN (Reason: Cough) RF: 0 Referrals: Brock Dela Cruz MD [Primary Care Provider] - See Instructions (Please follow up within 1 week. ) Discharge Instructions Patient Printed Instructions: Fall Prevention (DC) Additional Instructions: Your Health Problems: Goals to Promote Your Health: * To prevent worsening of your condition * To maintain your health at the optimal level Directions to Meet Your Goals: * Take your medications as prescribed * Follow your dietary instruction * Follow activity as directed * Keep your appointments as scheduled * Take your immunizations and boosters as scheduled * If your symptoms worsen call your PCP * If no PCP go to Urgent Care or Emergency Room Smoking is dangerous to your health. Avoid second hand smoke. You may reach the 24-hour crisis hotline for domestic abuse at . Status ED Status: Left Department Discharge Information Discharge Date/Time: 05/10/18 15:42
== END 2018-05-10 15:42 | disposition home health service (06) ==
LOC: NEPE 07:59 → NEDA 07:59 → NEPHCDU 14:09 → NEDA 14:10
PROVIDERS: ADMIT Internal Medicine; ATTEND Internal Medicine